=== PATIENT | male | born 1935 | race Caucasian/White ===

== ENCOUNTER → 2016-11-03 | Outpatient (CLI) | payer MEDICARE ==
[~2016-11-03] MED LIST: APIX1TAB3 PO; ATV/1 PO; CIPR-255 PO; CIPR1TAB11 PO; CIPR250T3 PO; CLX20 PO; DILT-119 PO; DRON2.5C PO; DTR5 PO; DXM/4 PO; FLM4 PO; FRS/40 PO; FSMD/70 PO; IBUP-1449 PO; LEUP11.23; LEUP11.23 INJ; LEVO1TAB35 PO; MULT-506 PO; OPTIRAY 320 IV PRN; OXYC-57 PO; OXYC1TAB3 PO; PHEN-775 PO; PRED-301 PO; PRLSR20 PO; PROC1TAB5 PO; PROP20TA67 PO; SIMV20TA2 PO; SULF800T23 PO
--- NOTE | 2016-11-03 15:49 | DIAGNOSTIC IMAGING REPORT ---
ABDOMEN AND PELVIS CT WITH IV AND ORAL CONTRAST CT DOSE: 774.17 mGy.cm HISTORY: Prostate cancer. TECHNIQUE: Multiaxial CT images of the abdomen and pelvis were performed following the use of intravenous and oral contrast. COMPARISON STUDY: Abdomen and pelvis CT 07/28/2016. Abdomen and pelvis CT 07/19/2014. FINDINGS: Emphysema and mild interstitial thickening at the lung bases. Stable 4 mm nodular density within the right middle lobe on image 3. Stable 4 mm nodule within the right lower lobe on image 7. Subacute/healing mild compression fractures at the inferior endplate of T11 and superior endplate of T12. This is similar to the prior study. No suspicious lytic or blastic osseous lesions. Stable indeterminate 7 mm enhancing lesion within the left hepatic lobe on image 120 dating back to 2013. The long-term stability favors a hemangioma. Hepatic steatosis. Focal nodular thickening at the gallbladder fundus favors adenomyomatosis. This remains unchanged. The adrenal glands and pancreas are unremarkable. No hydronephrosis. A 2.2 cm exophytic cyst within the lower pole of the right kidney. A few subcentimeter hypodense lesions within the left kidney with the largest measuring 6 mm. These are technically too small to characterize. No significant change in the retroperitoneal and right greater than left pelvic sidewall lymphadenopathy. Persistent bladder wall thickening. Colonic diverticulosis. No bowel wall thickening or obstruction. Normal appendix. IMPRESSION: 1. No change in the retroperitoneal and pelvic sidewall lymphadenopathy. 2. Stable bladder wall thickening. 3. Healing mild endplate compression deformity at T11 and T12. 4. Additional findings as described above. Electronically signed by: Zana Ceja M.D. 11/03/2016 3:47 PM Dictated Date/Time: 11/03/2016 3:38 PM
--- NOTE | 2016-11-03 16:53 | DIAGNOSTIC IMAGING REPORT ---
CT OF THE CHEST WITH IV CONTRAST CLINICAL HISTORY: Prostate cancer. COMPARISON STUDY: Chest CT July 28, 2016. TECHNIQUE: Following IV administration of 93 mL of Optiray-320, helical axial images of the chest were obtained. Images were viewed in the axial, sagittal and coronal planes. IV contrast was administered without complication. FINDINGS: The 1.1 cm sclerotic lesion within the right fourth rib is unchanged since prior exam of July 28, 2016. 2 sclerotic foci within the left fourth rib are unchanged and may reflect healing fractures. Mild emphysema is noted. A 6 mm right middle lobe nodule is unchanged as earlier exams. This is likely benign given stability. There is no consolidation to suggest pneumonia. No enlarged axillary, mediastinal or hilar lymph nodes are present. The abdomen and pelvis will be reported separately. Note is made of a mild compression deformity involving the superior endplate of T2 as well as a moderate compression deformity of the inferior endplate of T11 and a mild compression deformity of the superior endplate of T12 with minimal retropulsion. These fractures are likely subacute. IMPRESSION: 1. No change in the 1.1 cm sclerotic lesion within the right fourth rib which is suggestive of a metastasis. 2. No change in the sclerotic foci within the left fourth rib. Old fractures are favored although metastases could appear similar. 3. Interval development of T2, T11 and T12 compression fractures which are likely subacute and likely benign. Electronically signed by: Roldan Verduzco M.D. 11/03/2016 4:52 PM Dictated Date/Time: 11/03/2016 3:13 PM
== END | disposition home or self-care (01) ==
LOC: C.CTS 12:20
PROVIDERS: ATTEND Internal Medicine Hematology & Oncology
DX: C61 Malignant neoplasm of prostate (principal); M48.54XA Collapsed vertebra, not elsewhere classified, thoracic region, initial encounter for fracture; X58.XXXA Exposure to other specified factors, initial encounter

== ENCOUNTER → 2016-12-09 | Outpatient (CLI) | payer MEDICARE ==
[~2016-12-09] MED LIST changes: -OPTIRAY 320 IV PRN
== END | disposition home or self-care (01) ==
LOC: C.PATHSPEC 17:50
PROVIDERS: ATTEND Urology
DX: C67.9 Malignant neoplasm of bladder, unspecified (principal)

== ENCOUNTER → 2017-01-18 | Outpatient (CLI) | payer MEDICARE | END | disposition home or self-care (01) | LOC: C.LABSPEC 17:04 | PROVIDERS: ATTEND Urology | DX: R31.0 Gross hematuria (principal) ==

== ENCOUNTER → 2017-01-21 | Day surgery (SDC) | payer MEDICARE ==
[2017-01-20 15:42] VITALS: BMI 25.0
[~2017-01-21] VITALS: Ht 182.9 cm; Wt 83.6 kg
[~2017-01-21] MED LIST changes: +ATROPINE SULFATE 0.1 MG/ML 5ML SYR IV PRN; +CIPROFLOXACIN / D5W 400 MG IV SCH; +DEXAMETHASONE SOD INJ 4 MG/ML VIAL ONE; -DXM/4 PO; +EpHEDrine SULFATE INJ 50 MG/ML AMP IV PRN; +FENTANYL CITRATE INJ 50 MCG/1 ML 2 ML VIAL IV PRN; +FENTANYL CITRATE INJ 50 MCG/1 ML 2 ML VIAL ONE; +LACTATED RINGER'S 1000ML 1,000 ML IV SCH; -LEUP11.23; +LIDOCAINE HCL 2% 2 ML VIAL (20MG/ML) ONE; +ONDANSETRON INJ 2 MG/ML 2 ML VIAL IV PRN; +ONDANSETRON INJ 2 MG/ML 2 ML VIAL ONE; +OXYCODONE/ACETAMINOPHEN 5-325 TAB PO PRN; +PHENAZOPYRIDINE HCL 200 MG TAB PO PRN; -PROC1TAB5 PO; +PROPOFOL IV EMULSION 10 MG/ML 20 ML VIAL IV ONE
[2017-01-21 05:51] VITALS: BP 132/69; PULSE 59; TEMP 36.8; O2SAT 100; Ht 182.9 cm; Wt 83.6 kg
--- NOTE | 2017-01-21 08:40 | History & Physical Bridge Note ---
H&P Re-Evaluation Bridge Note: I have examined the patient, reviewed the History & Physical and in the interval since the performance of the History & Physical I have noted the following changes of clinical significance: Patient with intractable bleeding since office visit. Stopped Eliquis, for cysto, biopsy, fulguration, possible TURBT, RPG or stent. Consent revised, will move up seen transfer from [facility] for bleeding. DEN
--- NOTE | 2017-01-21 10:50 | Discharge Instructions ---
Discharge Instructions Date of Service Jan 21, 2017. Admission Reason for Admission: Hematuria Discharge Discharge Diagnosis / Problem: History of bladder cancer, radiation cystitis, recurrent hematuria s/p fulg Discharge Goals Goal(s): Decrease discomfort, Improve function, Improve disease control, Therapeutic intervention Activity Recommendations Activity Limitations: per Instructions/Follow-up section Lifting Limitations: no more than 25 pounds, gradually increase as tolerated Exercise/Sports Limitations: rest today, gradually increase as tolerated May Resume Sexual Activity: after two weeks Shower/Bathe: tomorrow Driving or Machine Use: resume 1 day after discharge . Instructions / Follow-Up Instructions / Follow-Up Cipro x 3 days post-op Discharge Diet Recommended Diet: Regular Diet Procedures Procedures Performed: Cystoscopy, clot evacuatio, bladder biopsy, fulguration of bladder and prostatic bleeders Pending Studies Studies pending at discharge: yes List of pending studies: Pathology check Medical Emergencies . Who to Call and When: Medical Emergencies: If at any time you feel your situation is an emergency, please call 911 immediately. . Non-Emergent Contact Non-Emergency issues call your: Urologist Call Non-Emergent contact if: you have a fever, temperature is above 101, your pain is not controlled, your pain is worsening, your pain is unusual for you, your pain is concerning you, wound has increased drainage . . "Provider Documentation" section prepared by Peewee Loco. . VTE Core Measure Inpt VTE Proph given/why not?: SCD's
--- NOTE | 2017-01-21 10:53 | [facility] Post Operative Brief Note ---
Immediate Operative Summary Operative Date Jan 21, 2017. Pre-Operative Diagnosis History Bladder Cancer; Refractory Hematuria and clot retention Post-Operative Diagnosis Same, prostatic bleeders Procedure(s) Performed Cystoscopy, clot evacuation, bladder biopsy, fulguration of bladder and prostatic bleeders Surgeon Dr. Peewee Loco Psychiatry Resident Surgeon(s) None Estimated Blood Loss 30 ml Findings No clear tumor, erythematous bladder edema biopsied, excellent hemostasis after completion of case, 200-300 cc of clot evacuated Specimens Permanent Specimens A: Bladder Anterior B:Bladder Neck Drains 18 fr 10 cc H2O Anesthesia GAET Complication(s) None Disposition Recovery Room / PACU
--- NOTE | 2017-01-21 11:35 | Anesthesiology Progress Note ---
Anesthesia Post Op Note Date & Time Jan 21, 2017 at 11:34 Vital Signs Pain Intensity: 0 Vital Signs Past 12 Hours Date Time Temp Pulse Resp B/P (MAP) Pulse Ox O2 Delivery O2 Flow Rate FiO2 01/21/17 11:30 61 16 135/63 100 Room Air 01/21/17 11:20 60 21 115/58 100 Mask 10 01/21/17 11:10 62 17 125/64 100 Mask 10 01/21/17 11:01 36.4 67 14 119/64 100 Mask 10 01/21/17 05:51 36.8 59 20 132/69 (90) 100 Room Air Notes Mental Status: alert / awake / arousable, participated in evaluation Pt Amnestic to Procedure: Yes Nausea / Vomiting: adequately controlled Pain: adequately controlled Airway Patency, RR, SpO2: stable & adequate BP & HR: stable & adequate Hydration State: stable & adequate Anesthetic Complications: no major complications apparent
[2017-01-21 11:45] VITALS: BP 138/73; PULSE 60; TEMP 36.1; O2SAT 100
[2017-01-21 12:15] VITALS: BP 156/76; PULSE 61; TEMP 36.1; O2SAT 100
[2017-01-21 12:45] VITALS: BP 151/79; PULSE 61; TEMP 36.6; O2SAT 100
[2017-01-21 13:15] VITALS: BP 155/74; PULSE 69; TEMP 36.5; O2SAT 96
[2017-01-21 14:15] VITALS: BP 140/72; PULSE 65; TEMP 36.4; O2SAT 96
--- NOTE | 2017-01-21 19:13 | OPERATIVE REPORT ---
DATE OF OPERATION: 01/21/2017 PREOPERATIVE DIAGNOSES: History of bladder cancer, radiation cystitis, and refractory hematuria with clot retention. POSTOPERATIVE DIAGNOSES: Same. PROCEDURE: Cystoscopy, clot evacuation, cold cup bladder biopsies, roller ball fulguration of bladder and prostatic bleeders. SURGEON: Dr. Peewee Loco. DROP HAMMER PILE DRIVER OPERATOR: None. ANESTHESIA: General anesthesia with endotracheal intubation. COMPLICATIONS: None. FINDINGS: Approximately 200 to 300 mL of clot within the bladder. Bleeding from the bladder neck and prostate fulgurated with excellent hemostasis intraoperatively. SPECIMENS SENT TO PATHOLOGY: Anterior cold cup bladder biopsies and bladder neck cold cup bladder biopsies. DRAINS LEFT IN PLACE: Include an 18-[place] Villela catheter with 10 mL of sterile water in the balloon. ESTIMATED BLOOD LOSS: 30 mL. BRIEF HISTORY: Mr. Belcher is an 81-year-old male well known to our service with a history of metastatic prostate cancer, on chemotherapy and recurrent bladder cancer. On his last office cystoscopy, abnormal mucosa in the anterior bladder was appreciated. This was felt to be consistent with recurrent cancer and the patient was planned for BCG. Unfortunately, he developed refractory and recurrent gross hematuria x48 hours now with persistent Villela catheter malfunction. He is being brought in for urgent fulguration of the areas of bleeding within the bladder. His Eliquis has been stopped due to bleeding difficulties. Please see H and P for further details. Intravenous ciprofloxacin is provided for antibiotic coverage. SCDs for DVT prophylaxis. PROCEDURE: The patient was properly identified and brought to the operative suite. After identification of appropriate consent on the chart, general anesthesia with endotracheal intubation was initiated and the patient was prepped and draped in standard fashion for this procedure. maritime officer-out procedure was followed. A 22-[place] Island[place] rigid resectoscope was passed into the bladder under direct visualization. Normal urethra was appreciated and a dqrl-ba-llztduermc obstructive prostate gland with friable tissue consistent with previous radiation effect was noted. This extended to the bladder neck. Ureteral orifices were visualized and noted to be in the normal anatomic location, although involved with some edema and erythema. The anterior bladder the previous abnormal mucosa was noted and felt to appear actually somewhat improved compared to his last cystoscopy. However, prior to all this, a large amount of clot present within the bladder had making it difficult to visualize, required irrigation with a Barry syringe to evacuate. After this was complete, findings as previously noted were appreciated. Cold cup bladder biopsies were taken of the most erythematous portions of the anterior bladder mucosa and sent for pathologic analysis focusing on the areas of bladder neck where the mucosa appeared most abnormal. The cystoscope was then removed. A 26-[place] resectoscope with a visual obturator was introduced into the bladder. Roller ball was used to fulgurate the areas of biopsies. Great care was taken to avoid any fulguration of the ureteral orifices. Fulguration took place around the bladder neck, anterior bladder wall and also within the prostate gland were friable tissue was noted to be bleeding with manipulation of the scope. After this was complete, the patient was noted to have excellent hemostasis with no areas of active bleeding or evidence of any persistent or recurrent tumor. No bladder perforation was noted. The resectoscope was removed and an 18-[place] Villela catheter was placed with return of clear irrigant. 10 mL of sterile water were placed in the balloon. Anesthesia was reversed. The patient was transferred to recovery room in stable condition. FOLLOWUP CARE: The patient will be discharged home after a trial of void in the hospital today. Ciprofloxacin x3 days postoperatively. Postoperative [id number] analgesia is recommended. The patient is instructed to contact our service should he note any fevers, chills, nausea, vomiting or other significant difficulties in the postoperative period. Outpatient followup appointment is confirmed. I attest to the content of the Intraoperative Record and any orders documented therein. Any exceptions are noted below. CAESAR
== END | disposition home or self-care (01) ==
LOC: C.ACU 04:59
PROVIDERS: ATTEND Urology
DX: C67.5 Malignant neoplasm of bladder neck (principal); C61 Malignant neoplasm of prostate; N32.89 Other specified disorders of bladder; N30.40 Irradiation cystitis without hematuria; K21.9 Gastro-esophageal reflux disease without esophagitis; E78.00 Pure hypercholesterolemia, unspecified; Z87.891 Personal history of nicotine dependence; Z80.6 Family history of leukemia

== ENCOUNTER → 2017-02-03 | Outpatient (CLI) | payer MEDICARE ==
[~2017-02-03] MED LIST changes: -ATROPINE SULFATE 0.1 MG/ML 5ML SYR IV PRN; -ATV/1 PO; -CIPR250T3 PO; -CIPROFLOXACIN / D5W 400 MG IV SCH; -DEXAMETHASONE SOD INJ 4 MG/ML VIAL ONE; -DTR5 PO; -EpHEDrine SULFATE INJ 50 MG/ML AMP IV PRN; -FENTANYL CITRATE INJ 50 MCG/1 ML 2 ML VIAL IV PRN; -FENTANYL CITRATE INJ 50 MCG/1 ML 2 ML VIAL ONE; -FRS/40 PO; -LACTATED RINGER'S 1000ML 1,000 ML IV SCH; -LEVO1TAB35 PO; -LIDOCAINE HCL 2% 2 ML VIAL (20MG/ML) ONE; -ONDANSETRON INJ 2 MG/ML 2 ML VIAL IV PRN; -ONDANSETRON INJ 2 MG/ML 2 ML VIAL ONE; +OPTIRAY 320 IV PRN; -OXYC1TAB3 PO; -OXYCODONE/ACETAMINOPHEN 5-325 TAB PO PRN; -PHENAZOPYRIDINE HCL 200 MG TAB PO PRN; -PROP20TA67 PO; -PROPOFOL IV EMULSION 10 MG/ML 20 ML VIAL IV ONE; -SULF800T23 PO
--- NOTE | 2017-02-03 15:38 | DIAGNOSTIC IMAGING REPORT ---
CT SCAN OF THE CHEST WITH IV CONTRAST CLINICAL HISTORY: Prostate cancer. COMPARISON STUDY: Chest CT scans dated 11/03/2016 and 07/19/2014. TECHNIQUE: Following the IV administration of 119 cc of Optiray 320, CT scan of the thorax was performed from the thoracic inlet to the upper abdomen. Images are reviewed in the axial, sagittal, and coronal planes. IV contrast was administered without complication. FINDINGS: Thyroid: Imaged portions of the thyroid gland are normal in size and attenuation. Thoracic aorta: There is atherosclerotic calcification of the thoracic aorta, which is normal in caliber and demonstrates standard 3-vessel arch anatomy. No dissection is seen. Pulmonary vasculature: The pulmonary trunk is normal in caliber. There are no filling defects identified in the central pulmonary vessels to indicate pulmonary embolus. Note that this examination was not protocoled for evaluation of the pulmonary arteries. Heart: The heart is mildly enlarged and without pericardial effusion. There are coronary artery calcifications. Lungs and pleural spaces: Emphysematous change is again seen. There is biapical scarring as well as foci of subpleural reticulation. Scattered calcified granulomas are identified. There is no airspace consolidation or pleural effusion. There is a 5 mm pulmonary nodule in the right middle lobe seen on image #191. This is not significantly changed dating back to 2013 and is of doubtful significance. No new pulmonary lesions are identified. Mediastinum: There is no mediastinal lymphadenopathy. Matilda: Clear. Axillae: There is no axillary lymphadenopathy. Upper abdomen: There is evidence of hepatic steatosis. Glandular atrophy is noted in the partially imaged pancreas. There is a small hiatal hernia. Right-sided hydronephrosis is partially imaged. There is heterogeneous perfusion of the right kidney as well as right-sided retroperitoneal nodules which measure up to 1.3 cm. Skeletal structures: The skeletal structures are osteopenic. There is unchanged appearance of an 11 mm sclerotic lesion in the right anterior fourth rib seen on image #99. There are also small sclerotic foci identified in the left posterior fourth rib seen on image #47 and in the left lateral fourth rib on image #90. No additional sclerotic lesions are seen. Mild degenerative change and hyperkyphosis are noted in the thoracic spine. There is a healed left anterior eighth rib fracture. There are mild compression deformity is again seen involving T11 and T12. IMPRESSION: 1. There is no evidence of progressive intrathoracic disease as compared to 11/03/2016. 2. Unchanged appearance of a sclerotic lesion in the right anterior fourth rib. This remains concerning for metastatic disease. No new sclerotic lesions are identified. 3. The 2 previously questioned indeterminant sclerotic foci in the left fourth rib are unchanged. 4. Right-sided hydronephrosis is partially visualized and there is heterogeneously decreased perfusion of the right kidney. Right-sided retroperitoneal nodules are new from previous and likely represent metastatic disease. See report of abdominal CT performed concurrently for detailed intra-abdominal findings. 5. Cardiomegaly and emphysema. 6. No airspace consolidation or pleural effusion is identified. 7. Hepatic steatosis. 8. Additional changes as above. Electronically signed by: Tushar Green M.D. 02/03/2017 3:36 PM Dictated Date/Time: 02/03/2017 3:25 PM
--- NOTE | 2017-02-03 15:41 | DIAGNOSTIC IMAGING REPORT ---
ABD/PELVIS IV AND ORAL CONT HISTORY: 81-year-old male presents for follow-up exam with history of prostate cancer. COMPARISON: CT abdomen and pelvis 11/03/2016. TECHNIQUE: Multiple axial CT images of the abdomen and pelvis were obtained following the intravenous administration of 119 mL Optiray 320. Oral contrast was also administered. FINDINGS: There is minimal subsegmental atelectasis of the lung bases along with some subpleural cystic changes. There is no gross pneumoperitoneum. Cardiomegaly with coronary arterial calcifications again seen. The liver, spleen, gallbladder and adrenal glands are within normal limits. There is at least moderate diffuse pancreatic atrophy. There has been interval development of moderate right-sided hydroureteronephrosis is present along with delayed nephrogram on the right. This appears to be secondary to progression of retroperitoneal, pelvic sidewall and pericaval adenopathy on the right. For example, conglomerate of pericaval adenopathy at the level of the kidneys measures up to 3.6 x 1.9 cm on image 34 of the axial series, previously 2.2 x 1.1 cm. Lymphadenopathy along the right pelvic sidewall measures up to 5.1 x 3.4 cm on image 63, previously 3.7 x 2.3 cm. Additionally, there are new soft tissue nodular densities within the right posterior pararenal space measuring up to 1.0 x 0.7 cm as seen on image 27 suggesting metastatic nodes. Progressive right iliac lymph nodes are also noted. Subcentimeter low attenuating densities of the left kidney suggests cysts. Again noted is circumferential wall thickening of the urinary bladder. There is moderate mixed plaquing of the abdominal aorta. There is no bowel obstruction. There is trace free fluid within the dependent pelvis which is likely reactive. Soft tissues are within normal limits. Unchanged endplate compression deformities are again seen at the T11-T12 level. No new suspicious lytic or blastic foci. IMPRESSION: 1. Interval development of moderate right-sided hydroureteronephrosis with delayed right-sided nephrogram secondary to progressive retroperitoneal and pelvic sidewall adenopathy. 2. Aside from the progressive adenopathy as described above, no additional new sites of disease are identified. 3. Wall thickening of the urinary bladder is unchanged. 4. Healing endplate compression deformity at T11-T12. Electronically signed by: Gray Brown 02/03/2017 3:39 PM Dictated Date/Time: 02/03/2017 3:24 PM
== END | disposition home or self-care (01) ==
LOC: C.CTS 12:43
PROVIDERS: ATTEND Nurse Practitioner Family
DX: C61 Malignant neoplasm of prostate (principal); N13.30 Unspecified hydronephrosis; R59.0 Localized enlarged lymph nodes; S22.080A Wedge compression fracture of T11-T12 vertebra, initial encounter for closed fracture; X58.XXXA Exposure to other specified factors, initial encounter; M89.9 Disorder of bone, unspecified; I51.7 Cardiomegaly; J43.9 Emphysema, unspecified; K76.0 Fatty (change of) liver, not elsewhere classified

== ENCOUNTER → 2017-02-08 | Outpatient (CLI) | payer MEDICARE ==
[~2017-02-08] MED LIST changes: -OPTIRAY 320 IV PRN
--- NOTE | 2017-02-08 15:13 | DIAGNOSTIC IMAGING REPORT ---
HISTORY: 81-year-old male with history of prostate cancer. Concern for possible metastatic disease. RADIOTRACER: 26.4 mCi Tc-99m MDP STUDY/IMAGES: Planar anterior and posterior whole body imaging was performed 3 hours following the intravenous administration of radiotracer. COMPARISON: Chest CT 02/03/2017. FINDINGS: There is a focus of intense radiotracer uptake within the anterolateral aspect of the right fourth rib which correlates with a sclerotic rib lesion seen on comparison chest CT dated 02/03/2017. The previously described sclerotic lesions in the posterior aspect of the left fourth rib do not demonstrate significant radiotracer uptake. There is moderately increased radiotracer uptake within the anterior aspect of the left eighth rib. On comparison CT, this appears to represent a linear healing rib fracture. There is an area of moderately increased radiotracer uptake involving the posterior left forearm which may be at the injection site. Mild linear radiotracer uptake seen about the tibia bilaterally which may reflect underlying venous stasis or sequela of hypertrophic osteoarthropathy. Degenerative related areas of uptake are seen throughout the spine and shoulders. No additional pathologic-appearing areas of radiotracer uptake are seen within the axial or appendicular skeletal system. IMPRESSION: 1. Focus of intense radiotracer uptake within the anterolateral right fourth rib correlates with a sclerotic lesion seen on comparison chest CT 02/03/2017 compatible with metastasis. 2. Focus of moderate radiotracer uptake within the anterior aspect of the left eighth rib appears to correlate with a subacute rib fracture on comparison chest CT. 3. 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 Electronically signed by: Gray Brown 02/08/2017 3:12 PM Dictated Date/Time: 02/08/2017 2:59 PM
== END | disposition home or self-care (01) ==
LOC: C.NUCL 10:42
PROVIDERS: ATTEND Nurse Practitioner Family
DX: C61 Malignant neoplasm of prostate (principal)

== ENCOUNTER → 2017-02-15 | Outpatient (CLI) | payer MEDICARE ==
[~2017-02-15] MED LIST changes: -APIX1TAB3 PO
== END | disposition home or self-care (01) ==
LOC: C.LABSPEC 17:13
PROVIDERS: ATTEND Urology
DX: R31.29 Other microscopic hematuria (principal)

== ENCOUNTER 2017-02-18 09:12 | Day surgery (SDC) | payer MEDICARE ==
[2017-02-12 12:18] VITALS: BMI 25.0
[~2017-02-18] VITALS: Ht 182.9 cm; Wt 83.6 kg
[~2017-02-18 09:12] MED LIST changes: +ATROPINE SULFATE 0.1 MG/ML 5ML SYR IV PRN; -CIPR-255 PO; -CIPR1TAB11 PO; +CIPROFLOXACIN / D5W 400 MG IV SCH; -DRON2.5C PO; +EpHEDrine SULFATE INJ 50 MG/ML AMP IV PRN; +FENTANYL CITRATE INJ 50 MCG/1 ML 2 ML VIAL IV PRN; +LACTATED RINGER'S 1000ML 1,000 ML IV SCH; +ONDANSETRON INJ 2 MG/ML 2 ML VIAL IV PRN; -OXYC-57 PO; -PHEN-775 PO
[2017-02-18 09:40] VITALS: BP 131/69; PULSE 55; TEMP 36.6; O2SAT 98; Ht 182.9 cm; Wt 83.6 kg
--- NOTE | 2017-02-18 09:48 | History & Physical Bridge Note ---
H&P Re-Evaluation Bridge Note: I have examined the patient, reviewed the History & Physical and in the interval since the performance of the History & Physical I have noted the following changes of clinical significance: No changes noted
[2017-02-18] MEDS ORDERED: PROPOFOL IV EMULSION 10 MG/ML 20 ML VIAL IV ONE ×2 (10:15→11:40)
[2017-02-18] MEDS ORDERED: LIDOCAINE HCL 2% 2 ML VIAL (20MG/ML) ONE (10:15)
[2017-02-18] MEDS ORDERED: ONDANSETRON INJ 2 MG/ML 2 ML VIAL ONE (10:15)
[2017-02-18] MEDS ORDERED: MIDAZOLAM HCL 1 MG/ML 2ML VIAL ONE (10:15)
[2017-02-18] MEDS ORDERED: FENTANYL CITRATE INJ 50 MCG/1 ML 2 ML VIAL ONE (10:15)
[2017-02-18] MEDS ORDERED: CONRAY 60% 50 ML VIAL ONE (11:22)
[2017-02-18] MEDS ORDERED: CONRAY 30% 150ML BOTTLE INSTIL ONE (11:41)
[2017-02-18] MEDS ORDERED: BELLADONNA/OPIUM SUPP 60 MG SUPP PR ONE (11:54)
[2017-02-18] MEDS ORDERED: PHEN-775 PO (12:14)
[2017-02-18] MEDS ORDERED: OXYC-57 PO (12:14)
[2017-02-18] MEDS ORDERED: CIPR-255 PO (12:14)
--- NOTE | 2017-02-18 12:18 | Discharge Instructions ---
Discharge Instructions Date of Service Feb 18, 2017. Admission Reason for Admission: Hydronephrosis Discharge Discharge Diagnosis / Problem: Bilateral hydro, R>L, bladder neck disease Discharge Goals Goal(s): Decrease discomfort, Improve function, Improve disease control, Therapeutic intervention Activity Recommendations Activity Limitations: as noted below Lifting Limitations: no more than 25 pounds, gradually increase as tolerated ( over 3-5 days) Exercise/Sports Limitations: rest today, gradually increase as tolerated (over 3-5 days) May Resume Sexual Activity: when tolerated Shower/Bathe: tomorrow (may shower, no bath with barboza in place) . Instructions / Follow-Up Instructions / Follow-Up Catheter removal WednesdayFeb 22 at 10:00 AM in our [place] Office Visit with Dr. Loco Mar 15 2017 at 10:40 AM In [place] Office Discharge Diet Recommended Diet: Regular Diet (good fluid intake) Procedures Procedures Performed: Cystoscopy, bilateral ureteral stent placement, Rollerball fulguration of bladder, Bilateral retrograde pyelography Pending Studies Studies pending at discharge: no Medical Emergencies . Who to Call and When: Medical Emergencies: If at any time you feel your situation is an emergency, please call 911 immediately. . Non-Emergent Contact Non-Emergency issues call your: Urologist Call Non-Emergent contact if: you have a fever, temperature is above 101, your pain is not controlled, your pain is worsening, your pain is unusual for you, your pain is concerning you, you have any medication questions . . "Provider Documentation" section prepared by Peewee Loco. . VTE Core Measure Inpt VTE Proph given/why not?: SCD's [place] Drug Monitoring Program Search Results: patient reviewed within database, no issues identified
--- NOTE | 2017-02-18 12:24 | [facility] Operative Report ---
Operative Report Operative Date Feb 18, 2017. Pre-Operative Diagnosis Right Hydronephrosis, Bladder Cancer, Metastatic Prostate Cancer Post-Operative Diagnosis Bilateral hydronephrosis with trigonal involvement, suspect prostate cancer progression Procedure(s) Performed Cystoscopy, bilateral retrograde pyelography and ureteral stent placement, Rollerball fulguration of trigone Surgeon Dr. Peewee Loco Manager Studio Surgeon(s) None Estimated Blood Loss 20 cc Findings Diffuse edema of trigone and ureteral orifices c/w disease progression from ~1 month ago, bilateral hydro on RPG, R>L, good stent position on fluoro and direct visualization Specimens none per surgeon Drains Bilateral 6 fr multilength ureteral stents, 20 fr barboza 10 cc H2O Anesthesia MAC Complication(s) None Disposition Recovery Room / PACU Indications R hydronephrosis, metastatic prostate cancer. Description of Procedure Patient was properly identified and brought to the operative suite after identification of appropriate consent on the chart. Monitored anesthesia care with sedation was initiated and patient was prepped and draped in the standard fashion for this procedure. Full timeout was followed. Intravenous ciprofloxacin was provided for antibiotic coverage. 22 Frisian cystoscope was introduced into the bladder under direct visualization. While the majority of the bladder was stable from his intraoperative findings a month ago his trigone was noted to be completely encompassed with edematous and friable tissue extending down to the level of the prostate. Neither ureteral orifice was visualized on placement of the scope. After much careful prodding with an angled sensor wire the right ureteral orifice was able to be identified buried within the edema. This was cannulated and retrograde pyelography was performed. This demonstrated moderate fullness of the distal ureter, compression of the mid ureter likely due to the finding of enlarged retroperitoneal lymph nodes previously noted on CT scan and proximal hydronephrosis with a tortuous ureter. Thankfully, sensor wire was able to be advanced up to the right kidney followed by a multilength ureteral stent with redundant coil present within the right renal pelvis and double coil present within the bladder associated with a hydronephrotic drip. Attention was then turned to the left ureteral orifice which was felt to be abnormal on direct visualization. With some effort this was able to be blindly identified with a sensor wire and retrograde pyelography was performed. Mild to moderate fullness to the ureter was felt to be present and seen the involvement of the ureter at the level of the bladder decision was made to proceed with stenting on the side. A multilength ureteral stent was advanced with redundant coil present within the left renal pelvis as well as directly visualized within the bladder. Unfortunately, due to the manipulation significant oozing was present diffusely at the trigone. Again, changes were felt to be out of proportion with his previous operative intervention. Sorbitol irrigation was placed and rollerball was used to fulgurate the trigone and tissue around the ureteral orifice for hemostatic purposes. Fulguration of the prostate and bladder neck directly was avoided as possible. Bladder was drained and cystoscope was removed. 20 Frisian Barboza catheter was placed with return of clear pink irrigant. 10 mL of sterile water were placed within the balloon. Belladonna and opium suppository was provided for postoperative analgesia. Anesthesia was reversed and patient was transferred to the recovery room in stable condition. I attest to the content of the Intraoperative Record and any orders documented therein. Any exceptions are noted below.
[2017-02-18] MEDS ORDERED: OXYCODONE/ACETAMINOPHEN 5-325 TAB PO PRN (12:30)
[2017-02-18] MEDS ORDERED: PHENAZOPYRIDINE HCL 200 MG TAB PO PRN (12:30)
[2017-02-18 12:35] VITALS: BP 137/70; PULSE 54; TEMP 35.5; O2SAT 99
--- NOTE | 2017-02-18 12:41 | Anesthesiology Progress Note ---
Anesthesia Post Op Note Date & Time Feb 18, 2017 at 12:40 Vital Signs Pain Intensity: 0 Vital Signs Past 12 Hours Date Time Temp Pulse Resp B/P (MAP) Pulse Ox O2 Delivery O2 Flow Rate FiO2 02/18/17 12:30 36.2 54 14 125/74 99 Room Air 02/18/17 12:20 55 15 117/67 98 Room Air 02/18/17 12:10 36.5 57 12 127/69 100 Oxymask 10 02/18/17 09:40 36.6 55 20 131/69 (89) 98 Room Air Notes Mental Status: alert / awake / arousable, participated in evaluation Pt Amnestic to Procedure: Yes Nausea / Vomiting: adequately controlled Pain: adequately controlled Airway Patency, RR, SpO2: stable & adequate BP & HR: stable & adequate Hydration State: stable & adequate Anesthetic Complications: no major complications apparent
[2017-02-18 13:05] VITALS: BP 125/73; PULSE 59; O2SAT 99
--- NOTE | 2017-02-18 13:19 | DIAGNOSTIC IMAGING REPORT ---
RETROGRADE INCLUDES KUB CLINICAL HISTORY: 81 years-old Male presenting with RT CYSTO/STENT, history of prostate cancer. TECHNIQUE: 4 fluoroscopic spot images of the abdomen were obtained as part of a urologic procedure. COMPARISON: CT from 02/03/2017. FINDINGS/IMPRESSION: A guidewire was introduced through the double-J right ureteral stent. Dilated right renal collecting system and opacified with contrast. Guidewire then was passed through the left ureter into the left upper pole calyces, also opacified with contrast but nondilated. A double-J stent was then placed into the left renal collecting system. Please see separately dictated surgical report for further details. Fluoroscopy dosage (mGy): Not available. Fluoroscopy time: 2 minutes 9 seconds. Number of fluoroscopic spot images: 4. Electronically signed by: Miguel Toth M.D. 02/18/2017 1:17 PM Dictated Date/Time: 02/18/2017 1:14 PM
[2017-02-18 13:35] VITALS: BP 135/74; PULSE 59; TEMP 36.6; O2SAT 99
[2017-05-04] MEDS ORDERED: DRON2.5C PO (11:53)
== END 2017-02-18 13:50 | disposition home or self-care (01) ==
LOC: C.ACU 09:12
PROVIDERS: ATTEND Urology
DX: N13.30 Unspecified hydronephrosis (principal); C61 Malignant neoplasm of prostate; C67.9 Malignant neoplasm of bladder, unspecified; N30.40 Irradiation cystitis without hematuria; E78.00 Pure hypercholesterolemia, unspecified; K21.9 Gastro-esophageal reflux disease without esophagitis; Z87.891 Personal history of nicotine dependence; Z79.899 Other long term (current) drug therapy

== ENCOUNTER 2017-04-01 02:03 | Emergency (ER) | payer MEDICARE ==
[~2017-04-01 02:03] MED LIST changes: -ATROPINE SULFATE 0.1 MG/ML 5ML SYR IV PRN; +CIPR-255 PO; -CIPROFLOXACIN / D5W 400 MG IV SCH; -EpHEDrine SULFATE INJ 50 MG/ML AMP IV PRN; -FENTANYL CITRATE INJ 50 MCG/1 ML 2 ML VIAL IV PRN; -LACTATED RINGER'S 1000ML 1,000 ML IV SCH; -ONDANSETRON INJ 2 MG/ML 2 ML VIAL IV PRN; +OXYC-57 PO
[2017-04-01] MEDS ORDERED: CIPR1TAB11 PO (04:28)
[2017-04-01] MEDS ORDERED: CIPROFLOXACIN 500 MG TAB PO STA (04:29)
--- NOTE | 2017-04-01 04:29 | EMERGENCY ROOM VISIT NOTE ---
History Report prepared by La: Vishal Neville Under the Supervision of: Dr. Teto Hu M.D. First contact with patient: 04:27 Stated Complaint: BLADDER PRESSURE AND BLEEDING History of Present Illness The patient is a 81 year old male who presents to the Emergency Room with complaints of worsening hematuria beginning a few weeks ago. The patient states that he has passed several clots today in his urine as well. He has a history of prostate cancer with metastases to the bladder and local lymph nodes. He has been receiving radiation and chemotherapy. The patient was recently told that the lymph nodes appear to be blocking his urine output, so he had urinary stents placed three weeks ago. He is not on any blood thinners. He has a history of similar symptoms. The patient states that he frequently has blood in his urine, but states that his symptoms have worsened significantly these past few weeks. He notes that he had a recent cystoscopy. He denies any recent syncopal episodes, or abnormal leg swelling. Nothing has improved his symptoms. Source of History: patient Onset: a few weeks ago Quality: other (hematuria) Timing: worsening Modifying Factors (Relieving): other (none) Note: The patient denies any recent syncopal episodes or abnormal leg swelling. Review of Systems See HPI for pertinent positives & negatives. A total of 10 systems reviewed and were otherwise negative. Past Medical & Surgical Medical Problems: (1) Bladder cancer (2) Prostate cancer Family History No pertinent family history stated. Social History Smoking Status: Former Smoker Marital Status: Occupation Status: employed Current/Historical Medications Scheduled Alendronate/Cholecalciferol (Fosamax+D 70MG/2800 Iu), 1 TABLET PO [id number] Ciprofloxacin Hcl (Cipro), 500 MG PO BID Ciprofloxacin Tab (Cipro), 1 TAB PO BID Citalopram (Citalopram Hydrobromide), 20 MG PO QAM Diltiazem Hcl Ext Rel (Tiazac), 360 MG PO QAM Leuprolide Acetate (Lupron Depot), 1 DOSE INJ [id number] Multivitamin (Multivitamin), 1 TAB PO QAM Prednisone (Prednisone), 5 MG PO QAM Simvastatin (Zocor), 20 MG PO Q2D Tamsulosin HCl (Tamsulosin HCl), 1 CAP PO Q2D Scheduled PRN Ibuprofen Tab (Motrin), 1 TAB PO Q6H PRN for Pain Omeprazole (Prilosec), 20 MG PO DAILY PRN for Indigestion Oxycodone/Acetaminophen 5MG/325MG (Percocet 5MG/325MG), 1 TABLET PO Q4H PRN for Pain Allergies Coded Allergies: No Known Allergies (Unverified , 02/18/17) Physical Exam Physical Exam GENERAL: Patient is uncomfortable appearing and in moderate distress. Frail in appearance. HEENT: No acute trauma, normocephalic atraumatic, mucous membranes moist, no nasal congestion, no scleral icterus. NECK: No stridor, no adenopathy, no meningismus, trachea is midline. LUNGS: No dyspnea. Clear to auscultation and equal bilaterally. No wheeze, no rhonchi. HEART: Regular rate and rhythm. No murmurs, rubs, gallops appreciated. ABDOMEN: Soft, bowel sounds positive, no peritonitis. Large, full bladder which is tender to palpation. BACK: No midline tenderness, no CVA tenderness EXTREMITIES: Normal motion all extremities, no cyanosis. Chronic lymphedema of the right leg. NEUROLOGIC: Alert and oriented, no acute motor or sensory deficits, no focal weakness, cranial nerves grossly intact. SKIN: No rash, no jaundice, no diaphoresis. Medical Decision & Procedures Medications Administered Medications (Trade) Dose Ordered Sig/Ismael Route Start Time Stop Time Status Last Admin Dose Admin Ciprofloxacin (Cipro Tab) 250 mg NOW STAT PO 04/01/17 04:29 04/01/17 04:30 DC 04/01/17 04:29 250 MG ED Course 0226: The patient was evaluated in room A12B. A complete history and physical exam was performed. 0315: I reassessed the patient. Nursing staff is currently placing a Villela catheter. 0400: Over 900 cc of urine was expressed from the patients Villela catheter. 0410: Reevaluated the patient. He feels much better. He notes that he was told that he should be placed on Cipro. Discussed results and discharge instructions : the patient verbalized understanding and agreement. The patient is ready for discharge. 0429: Ordered Cipro Tab 250 mg PO. Medical Decision 81 yr old male with metastatic prostate/bladder CA being treated over the last decade or so recently requiring bilateral ureteral stents secondary to enlarged lymph nodes (also causing persistent right leg edema which is unchanged). Arrives due to inability to urinate besides small blood clots. Reviewed with Urology prior to CBI. Initially ~ 1 L UOP and after prolonged CBI he had clearing of urine and feeling well. He is in no distress and feels well. He has had urinary bleeding before and notes no new other bleeding other than periodic bloody noses. Recent labs without thrombocytopenia, though we do not have labs from [facility] yesterday. As no further bleeding currently will hold off on rechecking these as following with Onc shortly. Previously has had Villela and he and family note that he always is placed on Cipro thus I will do this. I did review risks of abx, especially given recent bout of thrush with his Chemo. Consults Time Called: [phone] Consulting Physician: Dr. Loco -Urology Returned Call: [phone] I discussed the patients case with Dr. Loco. He states that the patient will need a Villela catheter placed. If the patient has grossly bloody urine with placement of the Villela, he will need continuous irrigation until the bleeding clears. Impression Primary Impression: Acute urinary retention Additional Impression: Hematuria Scribe Attestation The scribe's documentation has been prepared under my direction and personally reviewed by me in its entirety. I confirm that the note above accurately reflects all work, treatment, procedures, and medical decision making performed by me. Departure Information Dispostion Home / Self-Care Prescriptions Ciprofloxacin Tab (Cipro) 250 Mg Tab 1 TAB PO BID for 5 Days, #10 TAB Prov: Teto Hu M.D. 04/01/17 Referrals Crow Metcalf M.D. (PCP) Additional Instructions Please follow up with Urologist in next few days. Return if no urine output, increased pain, or other concerns. Problem Qualifiers
[2017-05-04] MEDS ORDERED: DRON2.5C PO (11:53)
== END 2017-04-01 04:48 | disposition home or self-care (01) ==
LOC: C.EDA 02:03
DX: R33.9 Retention of urine, unspecified (principal); R31.9 Hematuria, unspecified; Z85.46 Personal history of malignant neoplasm of prostate; Z85.51 Personal history of malignant neoplasm of bladder; Z92.3 Personal history of irradiation; Z92.21 Personal history of antineoplastic chemotherapy; Z87.891 Personal history of nicotine dependence; Z79.899 Other long term (current) drug therapy

== ENCOUNTER → 2017-04-16 | Outpatient (CLI) | payer MEDICARE ==
[~2017-04-16] MED LIST changes: +DRON2.5C PO
--- NOTE | 2017-04-16 11:00 | DIAGNOSTIC IMAGING REPORT ---
CT OF THE ABDOMEN AND PELVIS WITHOUT CONTRAST, STONE PROTOCOL CLINICAL HISTORY: Prostate cancer. Stones. Hematuria. COMPARISON STUDY: CT of the abdomen and pelvis February 03, 2017 and retrograde exam February 18, 2017. TECHNIQUE: Helical axial images of the abdomen and pelvis were obtained without IV or oral contrast according to renal stone protocol. A dose lowering technique was utilized adhering to the principles of ALARA. FINDINGS: Bilateral ureteral stents are appropriately positioned. Right hydronephrosis shown on exam of February 13, 2017 has resolved. No renal, ureteral or bladder calculi are present. Evaluation of the abdomen and pelvis is suboptimal on this unenhanced exam. Bladder wall thickening is unchanged. A 9 mm left hepatic lobe lesion is unchanged from prior studies and therefore benign. Unenhanced images of the spleen, adrenal glands and pancreas are unremarkable. Multiple nodules lateral to the right kidney within the posterior pararenal space are again noted. These have slightly increased in size since exam of February 03, 2017. These measure up to 1.2 cm. Extensive retroperitoneal lymphadenopathy within the abdomen and pelvis has not significantly changed since exam February 03, 2017. Index aortocaval lymph node shown on image 60 of 161 measures 3.1 x 1.9 cm. This is similar to prior exam. Index right pelvic sidewall node shown image 170 measures 5.1 x 3.1 cm. This is similar to prior exam. Index left internal iliac node shown image 118 measures 2 cm. This is similar to prior exam. There is sigmoid diverticulosis without evidence for acute diverticulitis. There is no evidence for a obstruction. No pneumatosis, free air or portal venous gas is present. No suspicious osseous lesions are identified within visualized portions of the skeleton. Compression deformities at T11 and T12 are unchanged. IMPRESSION: 1. Bilateral ureteral stents in place. Interval resolution of right hydronephrosis since CT of February 03, 2017. No urinary calculi. 2. No significant change in abdominal and pelvic lymphadenopathy consistent with metastatic disease since exam of February 03, 2017. 3. Slight increase in several small nodules lateral to the right kidney consistent with slight disease progression. Electronically signed by: Roldan Verduzco M.D. 04/16/2017 10:59 AM Dictated Date/Time: 04/16/2017 10:42 AM
== END | disposition home or self-care (01) ==
LOC: C.CTS 10:00
PROVIDERS: ATTEND Urology
DX: R31.0 Gross hematuria (principal); N28.9 Disorder of kidney and ureter, unspecified

== ENCOUNTER → 2017-05-17 | Outpatient (CLI) | payer MEDICARE ==
[~2017-05-17] MED LIST changes: +ATV/1 PO; -CIPR-255 PO; +DTR5 PO; +FRS/40 PO; +LEVO1TAB35 PO; -MULT-506 PO; +OXYC1TAB3 PO; +PROP20TA67 PO; +SULF800T23 PO
== END | disposition home or self-care (01) ==
LOC: C.LAB 13:03
PROVIDERS: ATTEND Urology
DX: C67.9 Malignant neoplasm of bladder, unspecified (principal); N13.30 Unspecified hydronephrosis

== ENCOUNTER → 2017-07-15 | Outpatient (CLI) | payer MEDICARE ==
[~2017-07-15] MED LIST changes: -ATV/1 PO; -DILT-119 PO; -FRS/40 PO; -IBUP-1449 PO; -LEUP11.23 INJ; -LEVO1TAB35 PO; -OXYC-57 PO; -SULF800T23 PO
--- NOTE | 2017-07-15 16:45 | DIAGNOSTIC IMAGING REPORT ---
(CHEST) THORAX WITHOUT, ABD/PELVIS ORAL CONT ONLY CT DOSE: 648.83 mGy.cm CLINICAL HISTORY: 81 years-old Male with PROSTATE CA. Follow-up study in a patient with prostate cancer . History of sclerotic right and left fourth rib lesions TECHNIQUE: Multiaxial CT images of the chest, abdomen and pelvis were performed without contrast. A dose lowering technique was utilized adhering to the principles of ALARA. COMPARISON: CT chest, abdomen and pelvis 06/01/2017 and 02/03/2017, CT abdomen and pelvis 05/30/2017. FINDINGS: CT CHEST: Mildly heterogeneous thyroid without dominant nodule. Nonenlarged mediastinal lymph nodes are seen without pathologic adenopathy by CT size criteria. The heart is mildly enlarged. Decreased attenuation of the cardiac blood pool suggests anemia. Coronary arterial disease. Calcifications of the aortic annulus are noted along with moderate atherosclerosis of the aorta. No aortic aneurysm identified. Trace bilateral pleural effusions, decreased in size from comparison. Mild upper lobe predominant paraseptal and centrilobular emphysema. No pneumothorax. Subpleural reticular opacities are noted within a multilobar multifocal distribution bilaterally which have progressed from 02/03/2017. There is improved aeration of the lungs from comparison study 06/01/2017. No lobar airspace consolidations. Calcific granuloma the left lower lobe. No suspicious pulmonary nodules identified. Mild subpleural cystic changes of the lung bases appear unchanged with bibasilar reticular opacities suggesting areas of fibrosis. No definite suspicious pulmonary nodules or masses identified to suggest metastatic disease. 5 x 4 mm solid pulmonary nodule of the lateral segment right middle lobe is seen on image 200 series 6, previously measuring up to 5 mm and study dated 02/03/2017. Central airways are patent. There is oral contrast within the majority of the thoracic esophagus suggesting reflux. Soft tissues of the chest are unremarkable. Mild bilateral gynecomastia. The bones appear mildly demineralized. Sclerotic foci involving the lateral aspects of the fourth ribs bilaterally are again seen which appear unchanged from comparison. No new lytic or sclerotic bony lesions identified. Nonspecific linear sclerosis again noted involving the anterior aspect of the left eighth rib which is also unchanged. Multilevel degenerative changes of the thoracic spine. Large Schmorl's nodes are again seen involving the inferior endplate of T11 and superior endplate T12, unchanged. CT ABDOMEN/PELVIS: 8 mm low attenuating lesion of the left hepatic lobe is noted on image 101 series 7 which is unchanged. No new hepatic mass lesions identified. No intrahepatic biliary ductal dilation. Gallbladder is unremarkable. Spleen and adrenal glands are within normal limits. There is moderate to severe diffuse pancreatic atrophy. Bilateral ureteral stents redemonstrated which appear to be in satisfactory positioning. There is moderate bilateral hydroureteronephrosis with a degree of hydronephrosis progressing from prior exam, right greater than left. Left-sided nephrolithiasis redemonstrated with 2 mm calculus of the inferior pole left kidney. There is moderate symmetrical ventral wall thickening of the urinary bladder with focal area of increased attenuation measuring 1.6 x 1.3 cm within the right lateral aspect of the urinary bladder adjacent to the distal portion of the stent as seen on image 341 series 7 and image 69 series 3. Perivesicular inflammatory stranding. Calcifications of the central prostate. Nodular soft tissue attenuating lesions are again seen posterior to the right kidney measuring up to 9 mm which appear unchanged from comparison study 06/01/2017. Bulky retroperitoneal, pelvic sidewall and iliac chain adenopathy is again seen. Index aortic lymph node measuring 2.1 x 2.0 cm on image 160 series 7 appears unchanged. Confluent pelvic sidewall adenopathy measuring up to 6.8 x 1.9 cm on image 316 series 7 previously measured 7.1 x 2.2 cm, likely unchanged. No new or progressive adenopathy identified. Contrast is noted within the distal esophagus. No bowel obstruction identified. Mild colonic diverticulosis without diverticulitis. Normal appendix. Mild distention of the cecum has decreased from prior study and is again noted to be within the central abdomen, suggesting a mobile cecum. Decreased anasarca. No new sclerotic or lytic bony lesions identified. Multilevel degenerative changes of the spine. IMPRESSION: 1. No definite evidence of new or progressive metastatic disease within the chest, abdomen or pelvis. 2. Multifocal multilobar subpleural reticulation of the bilateral lungs has progressed from 02/03/2017 study suggesting fibrosis and/or pneumonitis. Emphysema with chronic fibrotic changes of the lung bases. 3. Unchanged solid pulmonary nodule of the right middle lobe. 4. Stable appearing sclerotic foci involving the fourth ribs bilaterally. 5. Stable appearance of the abdominal and pelvic lymphadenopathy with unchanged appearance of the right perinephric nodules. 6. Bilateral ureteral stents in place with progressively worsened bilateral hydronephrosis which is at least moderate. Focal area of increased attenuation adjacent to the distal right ureteral stent within the urinary bladder lumen measuring up to 1.6 cm suggests hemorrhagic debris or neoplasm. This could be correlated with cystoscopy. 7. Bladder wall thickening could be correlated with urinalysis. 8. Additional findings as above. Electronically signed by: Gray Brown M.D. 07/15/2017 4:44 PM Dictated Date/Time: 07/15/2017 4:11 PM
== END | disposition home or self-care (01) ==
LOC: C.CTS 15:24
PROVIDERS: ATTEND Internal Medicine Hematology & Oncology
DX: C61 Malignant neoplasm of prostate (principal)

== ENCOUNTER 2017-07-26 22:10 | Emergency (ER) | payer MEDICARE ==
[~2017-07-26] VITALS: Ht 182.9 cm; Wt 64.9 kg
[~2017-07-26 22:10] MED LIST changes: -DRON2.5C PO; -PRED-301 PO; -PRLSR20 PO
[2017-07-26 22:17] VITALS: TEMP 36.7; Ht 182.9 cm; Wt 64.9 kg
[2017-07-26 23:08] LABS: BASO % 0.5 %; BASO ABS # 0.02 K/uL (0-0.2); EOS % 1.8 %; HEMATOCRIT 22.8 % (42-52); LYMPH % 18.2 %; LYMPH ABS # 0.79 K/uL (1.2-3.4); MEAN CELL VOLUME 95.8 fL (80-100); MEAN CORPUSCULAR HEMOGLOBIN 31.5 pg (25-34); MEAN CORPUSCULAR HGB CONC 32.9 g/dl (32-36); MEAN PLATELET VOLUME 10.2 fL (7.4-10.4); MONO % 8.7 %; NEUT % 70.8 %; PLATELET COUNT 152 K/uL (130-400); RED BLOOD COUNT 2.38 M/uL (4.7-6.1); WHITE BLOOD COUNT 4.35 K/uL (4.8-10.8)
[2017-07-26 23:27] LABS: COMPLETE YES
[2017-07-26 23:32] LABS: BUN/CREATININE RATIO 9.4 (10-20); CALCIUM 8.4 mg/dl (8.5-10.1); CREATININE 1.54 mg/dl (0.60-1.40); POTASSIUM 3.9 mmol/L (3.5-5.1)
[2017-07-26 23:48] LABS: URINE APPEARANCE CLOUDY (CLEAR); URINE COLOR ORANGE; URINE EPITHELIAL CELL AUTO 0-5 /lpf (0-5); URINE NITRITE POS (NEG); URINE PH 6.5 (4.5-7.5); URINE SPECIFIC GRAVITY 1.023 (1.000-1.030); UROBILINOGEN NEG (NEG); ZZURINE CULT IF INDIC CATH NO
[2017-07-26 23:54] LABS: MANUAL MICROSCOPIC REQUIRED? NO; REVIEW REQ? YES
[2017-07-27 00:05] LABS: URINE BILIRUBIN NEG (NEG)
--- NOTE | 2017-07-27 00:53 | EMERGENCY ROOM VISIT NOTE ---
ED Visit Note First contact with patient: 22:23 I have personally evaluated and examined this patient. I agree with assessment and plan of Brit Torres PA-C. Hematuria likely secondary to stents which has happened before. HgB stable and patient notes feeling well otherwise. Clear with CBI and patient stable. UA consistent with blood without acute infection at this time.
--- NOTE | 2017-07-27 03:18 | EMERGENCY ROOM VISIT NOTE ---
History First contact with patient: 22:23 Chief Complaint: UNABLE TO VOID Stated Complaint: BLOCKED BLADDER History of Present Illness The patient is a 81 year old male who presents to the Emergency Room with complaints of hematuria for the past 4 days steadily getting worse. Patient tried to self cath and was unable to. Patient has a history of hematuria as he has prostate cancer with metastases to the bladder and enlarged lymph nodes throughout the abdomen. Patient has ureteral stents placed bilaterally. He follows with Dr. Loco. He had the same problem 2 months ago. He had a blood transfusion then. Last chemotherapy was in May. No recent radiation. Patient complains of urinary urgency and difficulty urinating. He feels as if he is retaining. Patient denies chest pain, dyspnea, back pain, fever, chills, bruising, bleeding gums, weakness, leg pain or swelling. Review of Systems See HPI for pertinent positives & negatives. A total of 10 systems reviewed and were otherwise negative. Past Medical/Surgical History Medical Problems: (1) Acute renal insufficiency (2) Bladder cancer (3) Hematuria (4) Hyponatremia (5) Prostate cancer Social History Smoking Status: Former Smoker Smokeless Tobacco Use: No Drug Use: none Marital Status: Housing Status: lives with family Occupation Status: employed Current/Historical Medications Scheduled Citalopram (Citalopram Hydrobromide), 20 MG PO QAM Dronabinol (Marinol), 2.5 MG PO QAM Omeprazole (Prilosec), 20 MG PO QAM Prednisone (Prednisone), 5 MG PO QAM Propranolol (Inderal), 20 MG PO BID Simvastatin (Zocor), 20 MG PO Q2D Tamsulosin HCl (Tamsulosin HCl), 0.4 MG PO QAM Scheduled PRN Oxybutynin Chloride (Oxybutynin Chloride), 5 MG PO BID PRN for BLADDER DISCOMFORT Oxycodone Ir (Roxicodone Ir), 5 MG PO Q4H PRN for Pain Physical Exam Vital Signs Date Time Temp Pulse Resp B/P (MAP) Pulse Ox O2 Delivery O2 Flow Rate FiO2 07/27/17 03:06 77 18 126/66 100 Room Air 07/27/17 00:11 78 126/65 100 Room Air 07/26/17 22:17 36.7 68 18 92/55 99 Room Air Physical Exam VITALS: Vitals are noted on the nurse's note and reviewed by myself. Vital signs stable. GENERAL: Pleasant male, in no acute distress, nondiaphoretic, well-developed well-nourished. SKIN: Capillary reflex less than 2 seconds. HEENT: Normocephalic. PERRLA. EOMI. Nares patent. Mucous membranes moist. Neck is supple without nuchal rigidity. HEART: Regular rate and rhythm LUNGS: Clear to auscultation bilaterally without wheezes, rales or rhonchi. No retractions or accessory muscle use. ABDOMEN: Positive bowel sounds x 4. Normal tympanic percussion. Soft, bladder distended, nontender, without masses or organomegaly. Noriega sign negative. No guarding or rebound tenderness. No CVA tenderness MUSCULOSKELETAL: No gross musculoskeletal defects. No pedal edema. No calf tenderness. NEURO: Patient was alert and oriented to person place and time. Normal sensation to light and sharp touch. No focal neurological deficits. Medical Decision & Procedures Laboratory Results 07/26/17 22:54 Red Blood Count 2.38, Mean Corpuscular Volume 95.8, Mean Corpuscular Hemoglobin 31.5, Mean Corpuscular Hemoglobin Concent 32.9, Mean Platelet Volume 10.2, Neutrophils (%) (Auto) 70.8, Lymphocytes (%) (Auto) 18.2, Monocytes (%) (Auto) 8.7, Eosinophils (%) (Auto) 1.8, Basophils (%) (Auto) 0.5, Neutrophils # (Auto) 3.08, Lymphocytes # (Auto) 0.79, Monocytes # (Auto) 0.38, Eosinophils # (Auto) 0.08, Basophils # (Auto) 0.02 07/26/17 22:54 Test 07/26/17 22:54 07/26/17 23:25 White Blood Count 4.35 K/uL (4.8-10.8) Red Blood Count 2.38 M/uL (4.7-6.1) Hemoglobin 7.5 g/dL (14.0-18.0) Hematocrit 22.8 % (42-52) Mean Corpuscular Volume 95.8 fL (80-100) Mean Corpuscular Hemoglobin 31.5 pg (25-34) Mean Corpuscular Hemoglobin Concent 32.9 g/dl (32-36) Platelet Count 152 K/uL (130-400) Mean Platelet Volume 10.2 fL (7.4-10.4) Neutrophils (%) (Auto) 70.8 % Lymphocytes (%) (Auto) 18.2 % Monocytes (%) (Auto) 8.7 % Eosinophils (%) (Auto) 1.8 % Basophils (%) (Auto) 0.5 % Neutrophils # (Auto) 3.08 K/uL (1.4-6.5) Lymphocytes # (Auto) 0.79 K/uL (1.2-3.4) Monocytes # (Auto) 0.38 K/uL (0.11-0.59) Eosinophils # (Auto) 0.08 K/uL (0-0.5) Basophils # (Auto) 0.02 K/uL (0-0.2) RDW Standard Deviation 55.6 fL (36.4-46.3) RDW Coefficient of Variation 15.8 % (11.5-14.5) Immature Granulocyte % (Auto) 0.0 % Immature Granulocyte # (Auto) 0.00 K/uL (0.00-0.02) Red Blood Cell Morphology Unremarkable Anion Gap 7.0 mmol/L (3-11) Est Creatinine Clear Calc Drug Dose 35.1 ml/min Estimated GFR () 48.7 Estimated GFR (Non- 42.0 BUN/Creatinine Ratio 9.4 (10-20) Calcium Level 8.4 mg/dl (8.5-10.1) Urine Color ORANGE Urine Appearance CLOUDY (CLEAR) Urine pH 6.5 (4.5-7.5) Urine Specific [place] 1.023 (1.000-1.030) Urine Protein 4+ (NEG) Urine Glucose (UA) NEG (NEG) Urine Ketones NEG (NEG) Urine Occult Blood 3+ (NEG) Urine Nitrite POS (NEG) Urine Bilirubin NEG (NEG) Urine Urobilinogen NEG (NEG) Urine Leukocyte Esterase MODERATE (NEG) Urine WBC (Auto) 0 /hpf (0-5) Urine RBC (Auto) >30 /hpf (0-4) Urine Hyaline Casts (Auto) 0 /lpf (0-5) Urine Epithelial Cells (Auto) 0-5 /lpf (0-5) Urine Bacteria (Auto) NEG (NEG) ED Course Prior records reviewed and summarized as above. Triage Nursing notes reviewed. Additional history obtained from family The patient's history was concerning for hematuria and difficulty urinating Differential diagnosis: Etiologies such as urinary retention, urinary obstruction, renal colic, UTI, as well as others were entertained.. Physical examination: As above ER treatment provided: Villela cath with irrigation On reassessment the patient felt better. Diagnostics interpreted by me: The labs revealed hematuria without signs of infection. Chronic anemia stable per chart review Imaging studies: US RENAL: Moderate hydronephrosis and bilateral ureteral stents noted in the renal pelvi. Possible 3 mm stone left lower pole. Renal cysts measuring up to 2.5 cm on right. Villela catheter in bladder. Debris within the urinary bladder, surrounding the Villela catheter, is compatible with clot, measuring up to 7.1 x 3.9 x 5.9 cm. Urinary bladder volume 287 cc Radiologist: Teto Pichardo MD (CHEST) THORAX WITHOUT, ABD/PELVIS ORAL CONT ONLY CT DOSE: 648.83 mGy.cm CLINICAL HISTORY: 81 years-old Male with PROSTATE CA. Follow-up study in a patient with prostate cancer . History of sclerotic right and left fourth rib lesions TECHNIQUE: Multiaxial CT images of the chest, abdomen and pelvis were performed without contrast. A dose lowering technique was utilized adhering to the principles of ALARA. COMPARISON: CT chest, abdomen and pelvis 06/01/2017 and 02/03/2017, CT abdomen and pelvis 05/30/2017. FINDINGS: CT CHEST: Mildly heterogeneous thyroid without dominant nodule. Nonenlarged mediastinal lymph nodes are seen without pathologic adenopathy by CT size criteria. The heart is mildly enlarged. Decreased attenuation of the cardiac blood pool suggests anemia. Coronary arterial disease. Calcifications of the aortic annulus are noted along with moderate atherosclerosis of the aorta. No aortic aneurysm identified. Trace bilateral pleural effusions, decreased in size from comparison. Mild upper lobe predominant paraseptal and centrilobular emphysema. No pneumothorax. Subpleural reticular opacities are noted within a multilobar multifocal distribution bilaterally which have progressed from 02/03/2017. There is improved aeration of the lungs from comparison study 06/01/2017. No lobar airspace consolidations. Calcific granuloma the left lower lobe. No suspicious pulmonary nodules identified. Mild subpleural cystic changes of the lung bases appear unchanged with bibasilar reticular opacities suggesting areas of fibrosis. No definite suspicious pulmonary nodules or masses identified to suggest metastatic disease. 5 x 4 mm solid pulmonary nodule of the lateral segment right middle lobe is seen on image 200 series 6, previously measuring up to 5 mm and study dated 02/03/2017. Central airways are patent. There is oral contrast within the majority of the thoracic esophagus suggesting reflux. Soft tissues of the chest are unremarkable. Mild bilateral gynecomastia. The bones appear mildly demineralized. Sclerotic foci involving the lateral aspects of the fourth ribs bilaterally are again seen which appear unchanged from comparison. No new lytic or sclerotic bony lesions identified. Nonspecific linear sclerosis again noted involving the anterior aspect of the left eighth rib which is also unchanged. Multilevel degenerative changes of the thoracic spine. Large Schmorl's nodes are again seen involving the inferior endplate of T11 and superior endplate T12, unchanged. CT ABDOMEN/PELVIS: 8 mm low attenuating lesion of the left hepatic lobe is noted on image 101 series 7 which is unchanged. No new hepatic mass lesions identified. No intrahepatic biliary ductal dilation. Gallbladder is unremarkable. Spleen and adrenal glands are within normal limits. There is moderate to severe diffuse pancreatic atrophy. Bilateral ureteral stents redemonstrated which appear to be in satisfactory positioning. There is moderate bilateral hydroureteronephrosis with a degree of hydronephrosis progressing from prior exam, right greater than left. Left-sided nephrolithiasis redemonstrated with 2 mm calculus of the inferior pole left kidney. There is moderate symmetrical ventral wall thickening of the urinary bladder with focal area of increased attenuation measuring 1.6 x 1.3 cm within the right lateral aspect of the urinary bladder adjacent to the distal portion of the stent as seen on image 341 series 7 and image 69 series 3. Perivesicular inflammatory stranding. Calcifications of the central prostate. Nodular soft tissue attenuating lesions are again seen posterior to the right kidney measuring up to 9 mm which appear unchanged from comparison study 06/01/2017. Bulky retroperitoneal, pelvic sidewall and iliac chain adenopathy is again seen. Index aortic lymph node measuring 2.1 x 2.0 cm on image 160 series 7 appears unchanged. Confluent pelvic sidewall adenopathy measuring up to 6.8 x 1.9 cm on image 316 series 7 previously measured 7.1 x 2.2 cm, likely unchanged. No new or progressive adenopathy identified. Contrast is noted within the distal esophagus. No bowel obstruction identified. Mild colonic diverticulosis without diverticulitis. Normal appendix. Mild distention of the cecum has decreased from prior study and is again noted to be within the central abdomen, suggesting a mobile cecum. Decreased anasarca. No new sclerotic or lytic bony lesions identified. Multilevel degenerative changes of the spine. IMPRESSION: 1. No definite evidence of new or progressive metastatic disease within the chest, abdomen or pelvis. 2. Multifocal multilobar subpleural reticulation of the bilateral lungs has progressed from 02/03/2017 study suggesting fibrosis and/or pneumonitis. Emphysema with chronic fibrotic changes of the lung bases. 3. Unchanged solid pulmonary nodule of the right middle lobe. 4. Stable appearing sclerotic foci involving the fourth ribs bilaterally. 5. Stable appearance of the abdominal and pelvic lymphadenopathy with unchanged appearance of the right perinephric nodules. 6. Bilateral ureteral stents in place with progressively worsened bilateral hydronephrosis which is at least moderate. Focal area of increased attenuation adjacent to the distal right ureteral stent within the urinary bladder lumen measuring up to 1.6 cm suggests hemorrhagic debris or neoplasm. This could be correlated with cystoscopy. 7. Bladder wall thickening could be correlated with urinalysis. 8. Additional findings as above. Electronically signed by: Gray Brown M.D. 07/15/2017 4:44 PM Dictated Date/Time: 07/15/2017 4:11 PM This appears to be urinary retention secondary to hematuria from blood clots. Villela catheter was left in place due to the extremely large blood clot in the bladder and concerns or recurrent urinary retention from this. This is a recurrent problem for the patient. His bladder was irrigated and multiple clots were removed. The urine was draining without difficulties. He was advised to follow-up with his urologist, Dr. Loco this week for definitive care for his ongoing problems or here in the ER sooner for urinary retention, difficulty urinating, worsening signs or symptoms or as needed. Urine seemed consistent with hematuria without signs of infection. Culture was placed. By the evaluation outlined above emergent etiologies such as renal colic as well as others were deemed relatively unlikely. The pt informed about the findings as listed above. All questions were answered and pleased with the treatment. Return instructions were outlined and the patient was discharged in stable condition. Referral: The patient was referred back to her Urologist for follow-up in 2 to 3 days for a recheck of the current condition. Case reviewed with my attending The chart was completed utilizing Dragon Speech voice recognition software. Grammatical errors, random word insertions, pronoun errors, and incomplete sentences are an occassional consequence of this system due to software limitations, ambient noise, and hardware issues. Any formal questions or concerns about the content, text, or information contained within the body of this dictation should be directly addressed to the physician music assistant for clarification. Medical Decision As above Medication Reconcilliation Current Medication List: was personally reviewed by me Blood Pressure Screening Patient's blood pressure: Normal blood pressure Impression Primary Impression: Hematuria Additional Impression: Urinary retention Departure Information Dispostion Home / Self-Care Condition GOOD Referrals Peewee Loco MD, Urology (PCP) Patient Instructions My [facility] Additional Instructions Frequently empty out the Villela catheter. Do not try to remove the Villela catheter by herself. Rest and drink plenty of fluids as tolerated. Continue current medications. Avoid strenuous activities and anything that worsens your pain. Resume normal activities once your symptoms resolve. Return to the ER immediately for worsening or persistent Villela catheter problems , abdominal pain, vomiting, fevers, chest pains, difficulty breathing, worsening of your condition, or as needed. Follow up with your urologist in 2-3 days for a recheck of your current condition. Problem Qualifiers Primary Impression: Hematuria Hematuria type: unspecified type Qualified Codes: R31.9 - Hematuria, unspecified
[2017-07-27 03:49] VITALS: BP 128/61; PULSE 71; O2SAT 97
--- NOTE | 2017-07-27 07:03 | DIAGNOSTIC IMAGING REPORT ---
(RENAL)RETROPERITON COMP HISTORY: Hematuria ua rentention, blood clots ? COMPARISON: CT 07/15/2017 FINDINGS: Right kidney: Moderate hydronephrosis unchanged in the prior CT exam. Maximum linear dimension 9.2 cm. Stent within the renal pelvis. 2.5 cm lower pole cyst. Left kidney: Moderate hydronephrosis unchanged from the prior CT study. 10.5 cm maximum linear dimension. Stent within the renal pelvis. 3 mm lower pole calcification. Normal corticomedullary differentiation and cortical thickness. Bladder: Moderate debris within the urinary bladder. Probable hematoma surrounding the Villela catheter. IMPRESSION: 1. Bilateral stable hydronephrosis. 2. Bilateral urinary tract stents. 3. Debris/hematoma surrounding the Villela catheter within the urinary bladder.. 4. Urinary bladder volume is 280 cc. The above report was generated using voice recognition software. It may contain grammatical, syntax or spelling errors. Electronically signed by: Edson Patel M.D. 07/27/2017 7:02 AM Dictated Date/Time: 07/27/2017 6:57 AM
[2017-07-28] MEDS ORDERED: DRON2.5C PO (11:53)
[2017-07-28] MEDS ORDERED: PRED-301 PO (12:09)
[2017-07-28] MEDS ORDERED: PRLSR20 PO (16:03)
[2017-07-28] MEDS ORDERED: PROP20TA67 PO (21:40)
[2017-07-28] MEDS ORDERED: DTR/5 PO (21:40)
[2017-07-28] MEDS ORDERED: TAMS0.4C38 PO (21:40)
[2017-07-28] MEDS ORDERED: OXYC1TAB3 PO (21:40)
[2017-07-28] MEDS ORDERED: CLX/20 PO (21:40)
== END 2017-07-27 03:49 | disposition home or self-care (01) ==
LOC: C.EDB 22:11 → C.EDA 07-27 03:49
DX: R33.9 Retention of urine, unspecified (principal); R31.9 Hematuria, unspecified; Z85.51 Personal history of malignant neoplasm of bladder; Z85.46 Personal history of malignant neoplasm of prostate; Z79.899 Other long term (current) drug therapy; Z87.891 Personal history of nicotine dependence

== ENCOUNTER 2017-07-28 21:04 | Inpatient (IN) | payer OTHER, MEDICARE ==
[~2017-07-28] VITALS: Ht 182.9 cm; Wt 82.1 kg
[~2017-07-28 21:04] MED LIST changes: -FSMD/70 PO; +MRN25 PO; +OXYC-90 PO; -OXYC1TAB3 PO; +PRED-301 PO; +PRLSR20 PO
[2017-07-28] MEDS ORDERED: OXYC-90 PO (21:40)
[2017-07-28] MEDS ORDERED: PROP20TA67 PO (21:40)
[2017-07-28] MEDS ORDERED: DTR/5 PO (21:40)
[2017-07-28] MEDS ORDERED: SODIUM CHLORIDE 0.9% 500ML 500 ML IV STA (21:40)
[2017-07-28] MEDS ORDERED: CLX/20 PO (21:40)
[2017-07-28] MEDS ORDERED: TAMS0.4C38 PO (21:40)
--- NOTE | 2017-07-28 21:44 | EMERGENCY ROOM VISIT NOTE ---
History Report prepared by La: Nayeli Bergman Under the Supervision of: Dr. Rosalba Mi M.D. First contact with patient: 21:34 Chief Complaint: DIZZY Stated Complaint: DIZZY,LOW BP Nursing Triage Summary: pt reports sudden onset of dizziness upon standing pt appears pale and thin states recent tx for cancer in May, currently on Hospice reports he was seen here over isela for inability to urinate catheter bag has obvious blood in it pt reports he called his hospice doctor who referred him to ER History of Present Illness The patient is a 81 year old male who presents to the Emergency Room with complaints of sudden dizziness occurring at 1600 today. The patient states that he was here 2 days ago because he was unable to urinate and states that he has a catheter. He states that he was not able to irrigate it this morning and that there were clumps of blood in it. He also reports having weakness today, but denies having chest pain, vomiting, and blood in his stool. His family states that the patient was short of breath today. The patient has a history of prostate cancer and states that he has 2 stents in his ureters. He states that he has had a blood transfusion and that the last one was around May 26. Source of History: patient, family Onset: 1600 today Position: other (global) Quality: other (dizziness) Associated Symptoms: + SOB, + weakness, No chest pain, No vomiting Note: additional symptom: blood in catheter Review of Systems See HPI for pertinent positives & negatives. A total of 10 systems reviewed and were otherwise negative. Past Medical & Surgical Medical Problems: (1) Acute renal insufficiency (2) Bladder cancer (3) Hematuria (4) Hyponatremia (5) Prostate cancer Family History Cancer Heart disease Social History Smoking Status: Never Smoker Drug Use: none Marital Status: Housing Status: lives with family Occupation Status: employed Current/Historical Medications Scheduled Citalopram (Citalopram Hydrobromide), 20 MG PO DAILY Dronabinol (Marinol), 2.5 MG PO QAM Omeprazole (Prilosec), 20 MG PO QAM Prednisone (Prednisone), 5 MG PO QAM Propranolol (Inderal), 20 MG PO BID Tamsulosin Hcl (Flomax), 0.4 MG PO QAM Scheduled PRN Oxybutynin Chloride (Ditropan), 5 MG PO BID PRN for Bladder pain Oxycodone Ir (Roxicodone Ir), 5 MG PO Q4H PRN for Pain Allergies Coded Allergies: No Known Allergies (Unverified , 07/26/17) Physical Exam Vital Signs Date Time Temp Pulse Resp B/P (MAP) Pulse Ox O2 Delivery O2 Flow Rate FiO2 07/29/17 00:30 36.8 58 18 127/62 100 07/29/17 00:00 36.8 58 20 125/63 100 07/28/17 23:45 36.7 57 20 117/61 98 07/28/17 23:37 36.6 60 16 123/66 100 Room Air 07/28/17 23:36 36.6 60 20 123/66 100 07/28/17 23:00 60 20 108/77 100 07/28/17 22:24 62 16 105/57 98 Room Air 72 76/45 68 87/50 07/28/17 21:22 59 16 99/57 98 Room Air 07/28/17 21:22 59 07/28/17 21:07 36.6 68 18 86/46 98 Room Air Physical Exam Vital signs reviewed. General: Chronically ill-appearing male, pale, in no significant distress. Villela catheter in place with gross hematuria. HEENT: No scleral icterus, PERRLA, neck supple. Pale conjunctiva. Atraumatic. Cardiovascular: Regular rate and rhythm, no extra sounds. Pulmonary: Clear to auscultation bilaterally, normal work of breathing. Abdomen: Soft, nontender, nondistended, positive bowel sounds. Musculoskeletal: Atraumatic, no peripheral edema. Neurologic: Patient awake alert and oriented x 3 Skin: Warm, dry, no rash Medical Decision & Procedures Laboratory Results Test 07/28/17 22:09 07/28/17 22:21 07/28/17 22:26 Red Blood Cell Morphology Unremarkable Prothrombin Time 11.0 SECONDS (9.0-12.0) Prothromb Time International Ratio 1.0 (0.9-1.1) Activated Partial Thromboplast Time 27.3 SECONDS (21.0-31.0) Partial Thromboplastin Ratio 1.1 Total Bilirubin 0.2 mg/dl (0.2-1) Direct Bilirubin < 0.1 mg/dl (0-0.2) Aspartate Amino Transf (AST/SGOT) 14 U/L (15-37) Alanine Aminotransferase (ALT/SGPT) 9 U/L (12-78) Alkaline Phosphatase 68 U/L (45-117) Total Protein 5.4 gm/dl (6.4-8.2) Albumin 2.6 gm/dl (3.4-5.0) Bedside Hemoglobin 5.8 g/dl (14.0-18.0) Bedside Hematocrit 17 % (42-52) Bedside Sodium 137 mEq/L (135-144) Bedside Potassium 4.2 mEq/L (3.3-5.0) Bedside Chloride 104 mEq/L (101-112) Bedside Total CO2 22 mEq/l (24-31) Bedside Blood Urea Nitrogen 16 mg/dl (7-18) Bedside Creatinine 1.5 mg/dl (0.6-1.3) Bedside Glucose (other) 131 mg/dl (70-99) Bedside Ionized Calcium ([place]) 1.08 mmol/l (1.12-1.32) Urine Color RED Urine Appearance CLOUDY (CLEAR) Urine pH (4.5-7.5) Urine Specific [place] 1.027 (1.000-1.030) Urine Protein POS (NEG) Urine Glucose (UA) (NEG) Urine Ketones (NEG) Urine Occult Blood (NEG) Urine Nitrite (NEG) Urine Bilirubin (NEG) Urine Urobilinogen (NEG) Urine Leukocyte Esterase (NEG) Urine RBC >30 /hpf (0-4) Urine WBC 10-30 /hpf (0-5) Urine Epithelial Cells 0-5 /lpf (0-5) Urine Bacteria 1+ (NEG) Laboratory results per my review. Medications Administered Medications (Trade) Dose Ordered Sig/Ismael Route Start Time Stop Time Status Last Admin Dose Admin Sodium Chloride 500 ml @ 999 mls/hr Q31M STAT IV 07/28/17 21:40 07/28/17 22:10 DC 07/28/17 22:27 999 MLS/HR Ondansetron HCl (Zofran Inj) 4 mg Q6H PRN IV 07/29/17 00:30 08/28/17 00:29 07/29/17 15:02 4 MG Oxybutynin Chloride (Ditropan Tab) 5 mg BID PRN PO 07/29/17 00:30 07/29/17 16:51 DC 07/29/17 08:29 5 MG Oxycodone HCl (Roxicodone Immediate Rel Tab) 5 mg Q4H PRN PO 07/29/17 00:30 08/12/17 00:29 07/29/17 19:51 5 MG ECG Indication: weakness Rate (beats per minute): 55 Rhythm: sinus bradycardia, sinus with SA Findings: no ectopy, other (left axis deviation, diffuse T wave flattening ) ED Course 2137: Past medical records reviewed. The patient was evaluated in room B11B. A complete history and physical examination was performed. 2139: Ordered Sodium Chloride 500 ml @ 999 mls/hr IV. 2244: I reviewed the patient's case with Dr. Leiva. She will evaluate the patient for further management. 2248: The patient is awaiting blood from [place] for a transfusion. His Villela catheter has been replaced. 2320: Upon reevaluation, the patient is resting comfortably. I discussed laboratory and radiographic results with him. He verbalized agreement of the treatment plan. The patient will be evaluated for further management and care. Medical Decision Differential diagnosis: Etiologies such as metabolic, infection, hypo/hyperglycemia, electrolyte abnormalities, cardiac sources, intracerebral event, toxicologic, neurologic, anemia, as well as others were entertained. This patient was evaluated and appeared to be in no significant distress. IV access was obtained and laboratory work was drawn. Patient states he has been dizzy today. He thinks that position changes of the most difficult. He was orthostatic on exam. Patient was hydrated with normal saline solution. He was type and crossed for 2 units PRBCs. Given the recent GI bleed and need for blood, the patient will be evaluated by the hospitalist service for admission. He was consented for blood transfusion and they're waiting 2 units. Medication Reconcilliation Current Medication List: was personally reviewed by me Blood Pressure Screening Patient's blood pressure: Low blood pressure will be monitored by hospitalist Consults Time Called: 2199 Consulting Physician: Dr. Leiva- Resident Returned Call: [phone] I reviewed the patient's case with Dr. Leiva. She will evaluate the patient for further management. Impression Primary Impression: Anemia Additional Impression: Hemorrhage of urinary bladder wall Scribe Attestation The scribe's documentation has been prepared under my direction and personally reviewed by me in its entirety. I confirm that the note above accurately reflects all work, treatment, procedures, and medical decision making performed by me. Departure Information Dispostion Being Evaluated By Hospitalist Referrals Crow Metcalf M.D. (PCP) Patient Instructions My [facility] Problem Qualifiers
[2017-07-28 22:34] LABS: ISTAT CREATININE 1.5 mg/dl (0.6-1.3); ISTAT IONIZED CALCIUM 1.08 mmol/l (1.12-1.32); ISTAT POTASSIUM 4.2 mEq/L (3.3-5.0)
[2017-07-28 22:39] LABS: HEMATOCRIT 18.3 % (42-52); MEAN CELL VOLUME 96.3 fL (80-100); MEAN CORPUSCULAR HEMOGLOBIN 31.6 pg (25-34); MEAN CORPUSCULAR HGB CONC 32.8 g/dl (32-36); MEAN PLATELET VOLUME 10.7 fL (7.4-10.4); PLATELET COUNT 145 K/uL (130-400); RED CELL DISTRIBUTION WIDTH CV 15.9 % (11.5-14.5); WHITE BLOOD COUNT 4.66 K/uL (4.8-10.8)
[2017-07-28 22:40] LABS: ALBUMIN 2.6 gm/dl (3.4-5.0); BLOOD UREA NITROGEN 19 mg/dl (7-18); CALCIUM 7.7 mg/dl (8.5-10.1); CARBON DIOXIDE 23 mmol/L (21-32); CREATININE 1.41 mg/dl (0.60-1.40); GLUCOSE 129 mg/dl (70-99); POTASSIUM 4.2 mmol/L (3.5-5.1); SODIUM 137 mmol/L (136-145)
[2017-07-28 22:42] LABS: ALKALINE PHOSPHATASE 68 U/L (45-117); ALT/SGPT 9 U/L (12-78); AST/SGOT 14 U/L (15-37); TOTAL PROTEIN 5.4 gm/dl (6.4-8.2)
[2017-07-28 22:43] LABS: PTT PATIENT 27.3 SECONDS (21.0-31.0)
[2017-07-28 23:00] LABS: BASO % 0.2 %; BASO ABS # 0.01 K/uL (0-0.2); EOS % 1.3 %; EOS ABS # 0.06 K/uL (0-0.5); LYMPH % 16.1 %; LYMPH ABS # 0.75 K/uL (1.2-3.4); MONO % 7.7 %; MONO ABS # 0.36 K/uL (0.11-0.59); NEUT % 74.7 %; NEUT ABS # 3.48 K/uL (1.4-6.5)
[2017-07-28 23:36] VITALS: BP 123/66; PULSE 60; TEMP 36.6; O2SAT 100
[2017-07-28 23:45] VITALS: BP 117/61; PULSE 57; TEMP 36.7; O2SAT 98
[2017-07-29] VITALS (30 sets, daily range): BP systolic 105–169; BP diastolic 42–80; PULSE 49–64; TEMP 36.6–37.1; O2SAT 97–100; Ht 182.9 cm; Wt 82.1 kg
[2017-07-29] MEDS ORDERED: MAGNESIUM HYDROXIDE SUSP 30 ML UDC PO PRN (00:30)
[2017-07-29] MEDS ORDERED: POLYETHYLENE (MIRALAX) 17 GM PACK PO PRN (00:30)
[2017-07-29] MEDS ORDERED: NITROGLYCERIN 0.4 MG SL PER TAB CHARGE SL PRN (00:30)
[2017-07-29] MEDS ORDERED: ALUMINUM/MAGNESIUM/SIMETH (MAALOX MAX) 30 ML UDC PO PRN (00:30)
[2017-07-29] MEDS ORDERED: ONDANSETRON INJ 2 MG/ML 2 ML VIAL IV PRN (00:30)
[2017-07-29] MEDS ORDERED: OXYBUTYNIN CHLORIDE 5 MG TAB PO PRN (00:30)
--- NOTE | 2017-07-29 00:51 | History and Physical ---
History & Physical Date & Time of Service: Jul 29, 2017 at 00:47 Chief Complaint: Dizzy,Low Bp Primary Care Physician: Crow Metcalf M.D. History of Present Illness Source: patient, hospital records This is an 81 y/o M with metastatic pancreatic ca, urinary retention, chronic hematuria s/p TURP who presents with worsening hematuria and shortness of breath. He reports that he has had ureteral stents placed and follows dr. Loco. He has been having trouble with irrigating and has had multiple clumps of blood. He is weaker but denies chest pain, hematochezia, melena, hematemesis. During his last admission, he was sent home with hospice. He was found to have a hgb of 5.8 today. Past Medical/Surgical History Medical Problems: (1) Bladder cancer Status: Resolved (2) Prostate cancer Status: Chronic Family History Cancer Heart disease Social History Smoking Status: Never Smoker Smokeless Tobacco Use: No Alcohol Use: none Drug Use: none Marital Status: Housing status: lives with family Occupational Status: employed Immunizations History of Influenza Vaccine: Yes History of Tetanus Vaccine?: Yes History of Pneumococcal: Yes History of Hepatitis B Vaccine: No Multi-Drug Resistant Organisms History of MDRO: No Allergies Coded Allergies: No Known Allergies (Unverified , 07/26/17) Home Medications Scheduled Citalopram (Citalopram Hydrobromide), 20 MG PO DAILY Dronabinol (Marinol), 2.5 MG PO QAM Omeprazole (Prilosec), 20 MG PO QAM Prednisone (Prednisone), 5 MG PO QAM Propranolol (Inderal), 20 MG PO BID Tamsulosin Hcl (Flomax), 0.4 MG PO QAM Scheduled PRN Oxybutynin Chloride (Ditropan), 5 MG PO BID PRN for Bladder pain Oxycodone Ir (Roxicodone Ir), 5 MG PO Q4H PRN for Pain Review of Systems Constitutional: No fever, No chills Eyes: No worsening of vision Respiratory: + shortness of breath, + dyspnea on exertion, + dyspnea at rest Cardiovascular: No chest pain Abdomen: No pain, No nausea, No vomiting, No diarrhea Genitourinary - Male: + hematuria, No dysuria, No urinary frequency Endocrine: + fatigue Physical Exam Vital Signs Date Time Temp Pulse Resp B/P (MAP) Pulse Ox O2 Delivery O2 Flow Rate FiO2 07/29/17 00:30 36.8 58 18 127/62 100 07/29/17 00:00 36.8 58 20 125/63 100 07/28/17 23:45 36.7 57 20 117/61 98 07/28/17 23:37 36.6 60 16 123/66 100 Room Air 07/28/17 23:36 36.6 60 20 123/66 100 07/28/17 23:00 60 20 108/77 100 07/28/17 22:24 62 16 105/57 98 Room Air 72 76/45 68 87/50 07/28/17 21:22 59 16 99/57 98 Room Air 07/28/17 21:22 59 07/28/17 21:07 36.6 68 18 86/46 98 Room Air General Appearance: no apparent distress Eyes: PERRL, EOMI ENT: hearing grossly normal Neck: supple Respiratory/Chest: lungs clear, normal breath sounds, no respiratory distress, no accessory muscle use Cardiovascular: no murmur, + bradycardia Abdomen/GI: normal bowel sounds, non tender, soft Genitourinary - Male: + pertinent finding (catheter and bag with blood) Back: no CVA tenderness Extremities/Musculoskelatal: no calf tenderness, no pedal edema, normal range of motion Neurologic/Psych: sewing 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-XII nml as tested, no motor/sensory deficits, alert, normal mood/affect, oriented x 3 Diagnostics Laboratory Results Results Past 24 Hours Test 07/28/17 22:09 07/28/17 22:21 07/28/17 22:26 Range/Units White Blood Count 4.66 4.8-10.8 K/uL Red Blood Count 1.90 4.7-6.1 M/uL Hemoglobin 6.0 14.0-18.0 g/dL Hematocrit 18.3 42-52 % Mean Corpuscular Volume 96.3 80-100 fL Mean Corpuscular Hemoglobin 31.6 25-34 pg Mean Corpuscular Hemoglobin Concent 32.8 32-36 g/dl Platelet Count 145 130-400 K/uL Mean Platelet Volume 10.7 7.4-10.4 fL Neutrophils (%) (Auto) 74.7 % Lymphocytes (%) (Auto) 16.1 % Monocytes (%) (Auto) 7.7 % Eosinophils (%) (Auto) 1.3 % Basophils (%) (Auto) 0.2 % Neutrophils # (Auto) 3.48 1.4-6.5 K/uL Lymphocytes # (Auto) 0.75 1.2-3.4 K/uL Monocytes # (Auto) 0.36 0.11-0.59 K/uL Eosinophils # (Auto) 0.06 0-0.5 K/uL Basophils # (Auto) 0.01 0-0.2 K/uL RDW Standard Deviation 56.0 36.4-46.3 fL RDW Coefficient of Variation 15.9 11.5-14.5 % Immature Granulocyte % (Auto) 0.0 % Immature Granulocyte # (Auto) 0.00 0.00-0.02 K/uL Red Blood Cell Morphology Unremarkable Prothrombin Time 11.0 9.0-12.0 SECONDS Prothromb Time International Ratio 1.0 0.9-1.1 Activated Partial Thromboplast Time 27.3 21.0-31.0 SECONDS Partial Thromboplastin Ratio 1.1 Sodium Level 137 136-145 mmol/L Potassium Level 4.2 3.5-5.1 mmol/L Chloride Level 106 98-107 mmol/L Carbon Dioxide Level 23 21-32 mmol/L Anion Gap 8.0 16.0 16-25 mmol/L Blood Urea Nitrogen 19 7-18 mg/dl Creatinine 1.41 0.60-1.40 mg/dl Est Creatinine Clear Calc Drug Dose 45.9 ml/min Estimated GFR () 54.1 Estimated GFR (Non- 46.7 BUN/Creatinine Ratio 13.7 10-20 Random Glucose 129 70-99 mg/dl Calcium Level 7.7 8.5-10.1 mg/dl Total Bilirubin 0.2 0.2-1 mg/dl Direct Bilirubin < 0.1 0-0.2 mg/dl Aspartate Amino Transf (AST/SGOT) 14 15-37 U/L Alanine Aminotransferase (ALT/SGPT) 9 12-78 U/L Alkaline Phosphatase 68 45-117 U/L Total Protein 5.4 6.4-8.2 gm/dl Albumin 2.6 3.4-5.0 gm/dl Bedside Hemoglobin 5.8 14.0-18.0 g/dl Bedside Hematocrit 17 42-52 % Bedside Sodium 137 135-144 mEq/L Bedside Potassium 4.2 3.3-5.0 mEq/L Bedside Chloride 104 101-112 mEq/L Bedside Total CO2 22 24-31 mEq/l Bedside Blood Urea Nitrogen 16 7-18 mg/dl Bedside Creatinine 1.5 0.6-1.3 mg/dl Bedside Glucose (other) 131 70-99 mg/dl Bedside Ionized Calcium (Brenna) 1.08 1.12-1.32 mmol/l Urine Color RED Urine Appearance CLOUDY CLEAR Urine pH 4.5-7.5 Urine Specific [place] 1.027 1.000-1.030 Urine Protein POS NEG Urine Glucose (UA) NEG Urine Ketones NEG Urine Occult Blood NEG Urine Nitrite NEG Urine Bilirubin NEG Urine Urobilinogen NEG Urine Leukocyte Esterase NEG Urine RBC >30 0-4 /hpf Urine WBC 10-30 0-5 /hpf Urine Epithelial Cells 0-5 0-5 /lpf Urine Bacteria 1+ NEG Microbiology Results 07/28/17 Urine Culture, Received Pending Impression Assessment and Plan This is an 81 y/o M who presents with worsening hematuria Anemia 2/2 Hematuria setting of metastatic prostate cancer Transfuse 2 units of irradiated prbcs trend H/H Consult Urology Consult oncology Keep NPO Metastatic prostate ca. Consult oncology- chemo on hold per patient Continue tamsulosin and pain control prednisone, dronabinol Tremors? Patient on propanlol Consider holding due to bradycardia h/o of alcohol abuse Reports no alcohol since last admission. DVT proph Chemical contraindicated SCDs Code: Full Attending addendum: I have physically seen this patient, have supervised the medical residents activities, and agree with the H&P unless as otherwise noted. Assessment and Plan: Anemia requiring transfusion/Gross Hematuria/Bladder Cancer/Metastatic Prostate Cancer-- Transfuse 2 units of irradiated PRBCs now, then repeat H&H H&H every 6 hours Consult his urologist and oncologist Nothing by mouth for now except essential medications Continue tamsulosin, prednisone and dronabinol. Does not appear to need stress dose steroids at this time Depression-- Continue citalopram 20 mg by mouth daily GERD-- Change Prilosec to pantoprazole Tremors-- On propranolol 20 mg by mouth twice a day, if bradycardia persists, would cut dose in half. Level of Care Med/Surg Advanced Directives Existing Advance Directive: No Existing Living Will: No Existing Power of Bus Assistant: No VTE Prophylaxis VTE Risk Assessment Done? Y/N: Yes Risk Level: Moderate Given or contraindicated: SCD's
--- NOTE | 2017-07-29 01:55 | NUR ---
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
--- NOTE | 2017-07-29 02:00 | NUR ---
A:FIRST UNIT RBCS FINISHED WITHOUT SX OF TRANSFUSION REACTION
--- NOTE | 2017-07-29 03:10 | NUR ---
A:SECOND UNIT RBCS STARTED
--- NOTE | 2017-07-29 04:00 | NUR ---
A:PATIENT RESTING COMFORTABLY IN [id number]-[id number]-[id number] MONITOR DISPLAYS SB HR 50S-SEE EMR FOR COMPLETE SEAFOOD CLERK-SECOND UNIT OF RBCS INFUSING VIA RIGHT ARM IV SITE-MC CATH INTACT AND DRAINING-PATIENT TURNED AND REPOSITIONED WITH SKIN CARE-CLEAR LUNG SOUNDS HEARD-SAFETY MAINTAINED
--- NOTE | 2017-07-29 05:15 | NUR ---
A:SECOND UNIT RBCS FINISHED WITHOUT SX OF TRANSFUSION REACTION-NS STARTED @ 75 ML/HR VIA RIGHT ARM IV SITE
[2017-07-29] MEDS: SODIUM CHLORIDE 0.9% 1000ML 1,000 ML IV SCH ×2 (05:19→15:50)
[2017-07-29 06:44] LABS: HEMATOCRIT 23.2 % (42-52); HEMOGLOBIN 7.7 g/dL (14.0-18.0)
--- NOTE | 2017-07-29 07:13 | Family Medicine Progress Note ---
Progress Note Date of Service Jul 29, 2017. Subjective Pt evaluation today including: conversation w/ patient, physical exam, chart review, lab review, review of inpatient medication list Pain: No pain reported at this time PO Intake: Tolerating well Voiding: barboza catheter in place Patient has no complaints at this time, denies SOB or dizziness. Agreeable to transfusions. States he's had this before and is familiar with course. Constitutional: + fatigue, No fever, No chills, No sweats, No weight loss, No weakness, No problem reported Respiratory: No cough, No sputum, No wheezing, No shortness of breath, No dyspnea on exertion, No dyspnea at rest, No hemoptysis, No problem reported Abdomen: No pain, No nausea, No vomiting, No diarrhea, No constipation, No GI bleeding, No problem reported Male : + hematuria, No dysuria, No urinary frequency, No incontinence, No nocturia more than once/night, No slowing stream, No sexual dysfunction, No problem reported All Other Systems: Reviewed and Negative Medications Current Inpatient Medications Medications (Trade) Dose Ordered Sig/Ismael Route Start Time Stop Time Status Last Admin Dose Admin Sodium Chloride 1,000 ml @ 75 mls/hr [id number] IV 07/29/17 02:30 08/28/17 02:29 07/29/17 05:19 75 MLS/HR Acetaminophen (Tylenol Tab) 650 mg Q4H PRN PO 07/29/17 00:30 08/28/17 00:29 Al Hydrox/Mg Hydrox/Simethicone (Maalox Max Susp) 15 ml Q4H PRN PO 07/29/17 00:30 08/28/17 00:29 Magnesium Hydroxide (Milk Of Magnesia Susp) 30 ml Q12H PRN PO 07/29/17 00:30 08/28/17 00:29 Ondansetron HCl (Zofran Inj) 4 mg Q6H PRN IV 07/29/17 00:30 08/28/17 00:29 07/29/17 15:02 4 MG Nitroglycerin (Nitrostat Tab) 0.4 mg UD PRN SL 07/29/17 00:30 08/28/17 00:29 Polyethylene (Miralax Powder Packet) 17 gm DAILY PRN PO 07/29/17 00:30 08/28/17 00:29 Citalopram Hydrobromide (celeXA TAB) 20 mg DAILY PO 07/29/17 09:00 08/28/17 08:59 07/29/17 08:29 20 MG Dronabinol (Marinol Cap) 2.5 mg QAM PO 07/29/17 09:00 08/28/17 08:59 07/29/17 08:43 2.5 MG Oxybutynin Chloride (Ditropan Tab) 5 mg BID PRN PO 07/29/17 00:30 08/28/17 00:29 07/29/17 08:29 5 MG Oxycodone HCl (Roxicodone Immediate Rel Tab) 5 mg Q4H PRN PO 07/29/17 00:30 08/12/17 00:29 07/29/17 15:50 5 MG Prednisone (PredniSONE TAB) 5 mg QAM PO 07/29/17 09:00 08/28/17 08:59 07/29/17 08:29 5 MG Propranolol HCl (Inderal Tab) 20 mg BID PO 07/29/17 09:00 08/28/17 08:59 Tamsulosin HCl (Flomax Cap) 0.4 mg QAM PO 07/29/17 09:00 08/28/17 08:59 07/29/17 08:29 0.4 MG Pantoprazole Sodium (Protonix Tab) 40 mg QAM PO 07/29/17 09:00 08/28/17 08:59 07/29/17 08:30 40 MG Objective Vital Signs Date Time Temp Pulse Resp B/P (MAP) Pulse Ox O2 Delivery O2 Flow Rate FiO2 07/29/17 16:30 36.8 59 14 141/66 100 07/29/17 16:01 100 Room Air 07/29/17 16:01 36.8 54 16 142/62 (88) 100 Room Air 07/29/17 16:00 36.8 57 18 142/64 100 07/29/17 16:00 36.7 57 18 142/62 100 07/29/17 15:30 37.0 50 16 112/55 100 07/29/17 15:15 36.9 57 15 113/56 100 07/29/17 14:59 36.9 55 16 131/61 100 07/29/17 14:30 36.8 60 18 109/43 100 07/29/17 14:30 36.8 50 16 109/43 100 07/29/17 14:00 36.8 51 14 110/56 100 07/29/17 13:30 36.7 53 18 130/60 100 07/29/17 13:15 36.7 62 16 129/42 100 07/29/17 12:55 36.8 49 14 122/51 07/29/17 12:00 36.8 54 16 105/49 (67) 100 Room Air 07/29/17 12:00 100 Room Air 07/29/17 08:00 100 Room Air 07/29/17 08:00 36.8 51 16 134/53 (80) 100 Room Air 07/29/17 05:15 36.7 54 16 111/50 100 07/29/17 05:00 59 16 131/52 99 07/29/17 04:00 100 Room Air 07/29/17 04:00 36.8 58 20 128/62 (84) 100 Room Air 07/29/17 04:00 36.8 56 12 128/62 99 07/29/17 03:41 36.6 64 12 129/47 100 Room Air 07/29/17 03:30 36.7 57 17 117/55 97 07/29/17 03:15 36.7 57 18 127/59 100 07/29/17 03:10 36.7 55 16 120/56 100 07/29/17 02:00 36.6 56 18 113/55 100 07/29/17 01:30 36.7 58 16 132/65 100 07/29/17 01:30 36.7 55 20 132/65 99 07/29/17 00:45 57 16 128/65 99 Room Air 07/29/17 00:30 36.8 58 18 127/62 100 07/29/17 00:00 36.8 58 20 125/63 100 07/28/17 23:45 36.7 57 20 117/61 98 07/28/17 23:37 36.6 60 16 123/66 100 Room Air 07/28/17 23:36 36.6 60 20 123/66 100 07/28/17 23:00 60 20 108/77 100 07/28/17 22:24 62 16 105/57 98 Room Air 72 76/45 68 87/50 07/28/17 21:22 59 16 99/57 98 Room Air 07/28/17 21:22 59 07/28/17 21:07 36.6 68 18 86/46 98 Room Air Physical Exam General Appearance: WD/WN, no apparent distress Eyes: normal inspection, PERRL, EOMI ENT: hearing grossly normal Neck: supple, no JVD Respiratory/Chest: chest non-tender, lungs clear, normal breath sounds, no respiratory distress, no accessory muscle use Cardiovascular: regular rate, rhythm, no edema, no gallop, no JVD, no murmur Abdomen: normal bowel sounds, non tender, soft, no organomegaly, no pulsatile mass Extremities: non-tender, normal inspection, no pedal edema, no calf tenderness Neurologic/Psychiatric: saw cleaner II-XII nml as tested, no motor/sensory deficits, alert, normal mood/affect, oriented x 3 Skin: normal color, warm/dry, no rash Laboratory Results Last Resulted 07/28/17 22:09 Red Blood Count 1.90, Mean Corpuscular Volume 96.3, Mean Corpuscular Hemoglobin 31.6, Mean Corpuscular Hemoglobin Concent 32.8, Mean Platelet Volume 10.7, Neutrophils (%) (Auto) 74.7, Lymphocytes (%) (Auto) 16.1, Monocytes (%) (Auto) 7.7, Eosinophils (%) (Auto) 1.3, Basophils (%) (Auto) 0.2, Neutrophils # (Auto) 3.48, Lymphocytes # (Auto) 0.75, Monocytes # (Auto) 0.36, Eosinophils # (Auto) 0.06, Basophils # (Auto) 0.01 Last Resulted 07/28/17 22:09 Past 24 Hours Test 07/28/17 22:09 Range/Units Prothromb Time International Ratio 1.0 0.9-1.1 Prothrombin Time 11.0 9.0-12.0 SECONDS Assessment and Plan This is an 81 y/o M PMH significant for metastatic prostate and bladder cancer on hospice who presents with worsening hematuria via indwelling catheter. Normocytic Acute Blood Loss Anemia 2/2 Hematuria in setting of metastatic prostate ca -Hgb has trended up from 5.8 to 7.6 -Transfused total of 4 units of irradiated prbcs -Trend H/H q8 -Repeat CBC/BMP in AM -Consulted Urology, appreciate recs: barboza irrigation, supportive transfusions prn, continue flomax Discussed with patient that hematuria likely related to cancer burden -Consulted oncology, appreciate recs Metastatic prostate ca. -On hospice, at home -Continue with oncology -Continue tamsulosin 0.4, pain control (oxycodone 5), oxybutynin optimized to 10 mg BID -Continue prednisone 5, dronabinol 2.5 Tremors -Patient on propanlol 20, will continue to hold due to bradycardia h/o of alcohol abuse Reports no alcohol since last admission. DVT proph Chemical contraindicated, SCDs Code:Full Dispo: Med/surg; discharge uncertain at this time Resident Physician Supervision Note: I interviewed and examined the patient. Discussed with Dr. Santiago and agree with findings and plan as documented in the note. Any exceptions or clarifications are listed here: None Documented By: Martín Weathers feeling ok post transfusion. still gross hematuria. d/w pt that this unfortunately likely relates to cancer burden and likely will need to be managed symptomatically rather than in a curative fashion. he expresses understanding. vitals noted nad breathing unlabored no pallor or icterus acute blood loss anemia from hemorrhage related to metastatic urinary tract cancer - improved post transfusion - with ongoing bleeding and frailty - transfuse 2 more units and follow. irrigate. unfortunately quality of life is likely the most important measure at this point. Resident Tracking Resident Involvement: Resident Care Provided Care Provided: Adult Hospital Medicine
--- NOTE | 2017-07-29 08:00 | NUR ---
Patient up resting in bed this morning. Patient remains NPO with ice chips. Patient remains alert and oriented. VS stable. V[place] remains patent, but draining dark bloody urine. No clots noted. No need for irrigation yet this shift. Hbg 7.7 this morning after recieving 2 units of PRBSs over night. Patient denies any pain. IV site remains patent infusing NSS @75. Please see charting for full assessment. Patient denies any needs at this time. VS remain stable. Call olivo and phone in reach. Will continue to monitor.
[2017-07-29] MEDS: CITALOPRAM 20 MG TAB PO SCH (08:29)
[2017-07-29] MEDS: TAMSULOSIN HCL 0.4 MG CAP PO SCH (08:29)
[2017-07-29] MEDS: PROPRANOLOL HCL 20 MG TAB PO SCH ×2 (08:30→19:50)
[2017-07-29] MEDS: PANTOprazole SOD 40 MG TAB PO SCH (08:30)
[2017-07-29] MEDS: DRONABINOL 2.5 MG CAP PO SCH (08:43)
--- NOTE | 2017-07-29 09:59 | ONCOLOGY CONSULTATION ---
DATE OF CONSULTATION: 07/29/2017 REASON FOR CONSULTATION: An 81-year-old gentleman with metastatic bladder and prostate cancer, known to the [facility]. HISTORY OF PRESENT ILLNESS: Mr. Belcher is an 81-year-old gentleman well known to [facility], currently under the care of Dr. Kunal Valenzuela with metastatic bladder and prostate cancers. Apparently, over the past couple of days, he developed worsening hematuria yielding a multitude of blood clots through his urinary stream. At one point, he became profoundly weak and dizzy, which prompted his visit to the Emergency Room. The patient has been hospitalized frequently. His most recent in early July at which time Dr. Valenzuela saw him in the office as an outpatient to review current therapeutic strategy. At that time, it was decided to forego any further chemotherapy and the patient entered outpatient hospice. His last known treatment included Taxotere and Cabazitaxel. In the Emergency Room, admitting labs including peripheral blood counts were performed revealing a significantly decreased hemoglobin of 5.8 and a hematocrit of 17%. The patient was transfused 2 units of packed RBCs and admitted to the ICU. At the bedside, I asked Mr. Belcher where he was in regards to hospice. He apparently has ratificated the benefit to proceed with any invasive procedures necessary to stabilize hematuria. I asked him specifically if he was interested in returning to chemotherapy and he desires a "wait and see" approach. I will discuss further with Dr. Valenzuela. PAST MEDICAL HISTORY: Again, significant for both prostate and bladder cancers. CURRENT MEDICATIONS: Include citalopram 20 mg p.o. every day, Marinol 2.5 mg p.o. q.a.m., omeprazole 20 mg p.o. q.a.m., prednisone 5 mg p.o. q.a.m., Inderal 20 mg p.o. b.i.d. and Flomax 0.4 mg p.o. every day. ALLERGIES: No known drug allergies. SOCIAL HISTORY: The patient is and lives with his family. Currently employed. He is a nonsmoker. FAMILY HISTORY: Positive for cancer and heart disease. REVIEW OF SYSTEMS: GENERAL: As per HPI most notably for profound weakness and fatigue as well as lightheadedness and dizziness leading up to admission. No fevers, chills, or sweats. He is maintaining his weight and appetite. SKIN: No rashes or lesions. No history of dermatosis. HEENT: He denies headaches. No visual or hearing deficits. No sinus symptoms, sore throat or dysphagia. LYMPH: No history of lymphoproliferative disease. CARDIAC: Negative for coronary artery disease. No current angina or palpitations. PULMONARY: Negative for COPD. No shortness of breath, dyspnea or orthopnea. No cough or hemoptysis. GASTROINTESTINAL: Negative for abdominal pain, nausea, vomiting, diarrhea or constipation, hematochezia or melenic stools. GENITOURINARY: Positive for gross hematuria. MUSCULOSKELETAL: Positive for previous ureteral stenting. ENDOCRINE: Negative for diabetes or thyroid disease. NEUROLOGIC: Negative for seizure, stroke, or migraine headache. HEMATOLOGIC: Positive for profound anemia secondary to genitourinary bleeding. PHYSICAL EXAMINATION: GENERAL: Froy is a very pleasant 81-year-old gentleman in no acute distress. VITAL SIGNS: Current temperature is 36.7, pulse 54, respiratory rate 16, blood pressure 111/50. SKIN: Warm, dry, noncyanotic without petechia, rash or ecchymosis. HEENT: Head atraumatic, normocephalic. Eyes PERRLA, EOMI. Sclerae nonicteric. No conjunctival discharge. Nares are patent without rhinorrhea or discharge. Throat is clear. Tongue is midline. Mucous membranes are moist. NECK: Supple without JVD or thyromegaly. LYMPH: No cervical, supraclavicular, or axillary palpable nodes. HEART: Regular rate and rhythm. No clicks, rubs, murmurs, or gallops. LUNGS: Clear to auscultation bilaterally. ABDOMEN: Soft, nontender, nondistended, without palpable hepatosplenomegaly. EXTREMITIES: No calf tenderness or swelling. No clubbing, cyanosis or edema. NEUROLOGICALLY: He is awake, alert and oriented x3. Cranial nerves II-XII are intact. No motor or sensory deficits are noted. LABORATORY DATA: Hemoglobin 7.7, hematocrit 23.2. Chemistries are not ordered today. Results from July 28 include sodium 137, potassium 4.2, chloride 106, carbon dioxide 23, creatinine 1.41, BUN 19, albumin 2.6. IMPRESSION: 1. Gross hematuria. 2. Profound blood loss anemia. 3. Metastatic prostate cancer. 4. Bladder cancer. 5. History of alcohol abuse. 6. Hypoalbuminemia. PLAN: I had the pleasure of visiting with Gilliam at bedside today. I briefly discussed his current clinical situation with active hematuria and the need for transfusional support. I agree with urology consult. There is some ambiguity regarding his status. The patient according to Dr. Valenzuela's most recent clinical note suggest that chemotherapy would no longer be of benefit and recommended Mr. Belcher to proceed with palliative approach. Mr. Belcher today wants to continue a "wait and see" approach. I will discuss this with Dr. Valenzuela and ensure Mr. Belcher is scheduled for an outpatient followup once he is discharged from the hospital. As for medical management at present, I agree with everything done at present. I have nothing further to add from a medical oncology standpoint and again will inform Dr. Valenzuela of his admission to hospital. I will continue to follow him periodically during his stay. If you have any questions or concerns that I have not answered, feel free to contact me at any time. MTDD
[2017-07-29 11:03] LABS: HEMATOCRIT 22.5 % (42-52); HEMOGLOBIN 7.6 g/dL (14.0-18.0)
--- NOTE | 2017-07-29 12:00 | NUR ---
Previous assessment unchanged. Patient sitting up in bed reading the newspaper. Patient denies any pain at this time. Villela remains patent, urine bloody, no clots seen at this time. HBG stable at 7.6. VS remain stable. IV patent. NSS @ 75 is infusing. Call olivo in reach. Patient denies any further needs. Will continue to monitor.
--- NOTE | 2017-07-29 13:00 | NUR ---
1st unit of blood infusing
--- NOTE | 2017-07-29 13:25 | Urology Consultation ---
History General Date of Service: Jul 29, 2017. Chief Complaint: gross hematuria Primary Care Physician: Crow Metcalf M.D. Pt seen a urologist before?: Yes (Dr. Peewee Loco ) If yes, why?: bladder cancer History of Present Illness 81 yo male with retroperitoneal adenopathy, indwelling stents, persistent gross hematuria, and urothelial CA invading the prostate. The pt presents to [facility], [place] with c/o gross hematuria. Noted to be anemic on arrival. He has received 2 units PRBCs. H&H now 7.6 and 22.5. Pt reports worsening of gross hematuria x 4 days. Barboza catheter currently in place currently draining merlot colored urine. Pt denies pain. CT scan from 07-15-17 showing progressive bilateral hydro with stents remaining in good position. Laboratory Last 24 Hours Test 07/28/17 22:09 07/28/17 22:21 07/28/17 22:26 07/29/17 06:29 White Blood Count 4.66 K/uL Red Blood Count 1.90 M/uL Hemoglobin 6.0 g/dL 7.7 g/dL Hematocrit 18.3 % 23.2 % Mean Corpuscular Volume 96.3 fL Mean Corpuscular Hemoglobin 31.6 pg Mean Corpuscular Hemoglobin Concent 32.8 g/dl Platelet Count 145 K/uL Mean Platelet Volume 10.7 fL Neutrophils (%) (Auto) 74.7 % Lymphocytes (%) (Auto) 16.1 % Monocytes (%) (Auto) 7.7 % Eosinophils (%) (Auto) 1.3 % Basophils (%) (Auto) 0.2 % Neutrophils # (Auto) 3.48 K/uL Lymphocytes # (Auto) 0.75 K/uL Monocytes # (Auto) 0.36 K/uL Eosinophils # (Auto) 0.06 K/uL Basophils # (Auto) 0.01 K/uL RDW Standard Deviation 56.0 fL RDW Coefficient of Variation 15.9 % Immature Granulocyte % (Auto) 0.0 % Immature Granulocyte # (Auto) 0.00 K/uL Red Blood Cell Morphology Unremarkable Prothrombin Time 11.0 SECONDS Prothromb Time International Ratio 1.0 Activated Partial Thromboplast Time 27.3 SECONDS Partial Thromboplastin Ratio 1.1 Sodium Level 137 mmol/L Potassium Level 4.2 mmol/L Chloride Level 106 mmol/L Carbon Dioxide Level 23 mmol/L Anion Gap 8.0 mmol/L 16.0 mmol/L Blood Urea Nitrogen 19 mg/dl Creatinine 1.41 mg/dl Est Creatinine Clear Calc Drug Dose 45.9 ml/min Estimated GFR () 54.1 Estimated GFR (Non- 46.7 BUN/Creatinine Ratio 13.7 Random Glucose 129 mg/dl Calcium Level 7.7 mg/dl Total Bilirubin 0.2 mg/dl Direct Bilirubin < 0.1 mg/dl Aspartate Amino Transf (AST/SGOT) 14 U/L Alanine Aminotransferase (ALT/SGPT) 9 U/L Alkaline Phosphatase 68 U/L Total Protein 5.4 gm/dl Albumin 2.6 gm/dl Bedside Hemoglobin 5.8 g/dl Bedside Hematocrit 17 % Bedside Sodium 137 mEq/L Bedside Potassium 4.2 mEq/L Bedside Chloride 104 mEq/L Bedside Total CO2 22 mEq/l Bedside Blood Urea Nitrogen 16 mg/dl Bedside Creatinine 1.5 mg/dl Bedside Glucose (other) 131 mg/dl Bedside Ionized Calcium ([place]) 1.08 mmol/l Urine Color RED Urine Appearance CLOUDY Urine pH Urine Specific [place] 1.027 Urine Protein POS Urine Glucose (UA) Urine Ketones Urine Occult Blood Urine Nitrite Urine Bilirubin Urine Urobilinogen Urine Leukocyte Esterase Urine RBC >30 /hpf Urine WBC 10-30 /hpf Urine Epithelial Cells 0-5 /lpf Urine Bacteria 1+ Test 07/29/17 10:51 Hemoglobin 7.6 g/dL Hematocrit 22.5 % Problem List Medical Problems: (1) Abnormal ECG Status: Acute (2) Acute urinary retention Status: Acute (3) Anemia Status: Acute (4) Anemia Status: Acute (5) Hematuria Status: Acute (6) Hemorrhage of urinary bladder wall Status: Acute (7) Hypotension Status: Acute (8) Urinary retention Status: Acute (9) Urinary tract infection Status: Acute Past History cancer (bladder), cancer - prostate, depression, GERD, high cholesterol, kidney stones, urinary tract infection, other Past Surgical History: ureteral stent, other (TURBT) Family History Cancer Heart disease Social History Hx Tobacco Use In Past Year?: No Smoking: quit greater than 1 year Alcohol: daily Marital status: Housing status: lives with family Occupation status: employed Immunizations History of Influenza Vaccine: Yes History of Tetanus Vaccine?: Yes History of Pneumococcal: Yes History of Hepatitis B Vaccine: No Allergies Coded Allergies: No Known Allergies (Unverified , 12/25/17) Medications Home Medications: Home Meds and Scripts Medications Dose Route/Sig Max Daily Dose Days Date Category Roxicodone Ir (Oxycodone HCl) 5 Mg Tab 5 Mg PO Q4H PRN 07/28/17 Reported Citalopram Hydrobromide (Citalopram) 20 Mg Tab 20 Mg PO DAILY 07/28/17 Reported Ditropan (Oxybutynin Chloride) 5 Mg Tab 5 Mg PO BID PRN 07/28/17 Reported Inderal (Propranolol HCl) 20 Mg Tab 20 Mg PO BID 07/28/17 Reported Flomax (Tamsulosin Hcl) 0.4 Mg Cap 0.4 Mg PO QAM 07/28/17 Reported Marinol (Dronabinol) 2.5 Mg Cap 2.5 Mg PO QAM 05/04/17 Reported Prilosec (Omeprazole) 20 Mg Capcr 20 Mg PO QAM 01/19/17 Reported Prednisone 5 Mg Tab 5 Mg PO QAM 01/18/15 Reported Inpatient Medications: Current Inpatient Medications Medications (Trade) Dose Ordered Sig/Ismael Route Start Time Stop Time Status Last Admin Dose Admin Sodium Chloride 1,000 ml @ 75 mls/hr [id number] IV 07/29/17 02:30 08/28/17 02:29 07/29/17 05:19 75 MLS/HR Acetaminophen (Tylenol Tab) 650 mg Q4H PRN PO 07/29/17 00:30 08/28/17 00:29 Al Hydrox/Mg Hydrox/Simethicone (Maalox Max Susp) 15 ml Q4H PRN PO 07/29/17 00:30 08/28/17 00:29 Magnesium Hydroxide (Milk Of Magnesia Susp) 30 ml Q12H PRN PO 07/29/17 00:30 08/28/17 00:29 Ondansetron HCl (Zofran Inj) 4 mg Q6H PRN IV 07/29/17 00:30 08/28/17 00:29 Nitroglycerin (Nitrostat Tab) 0.4 mg UD PRN SL 07/29/17 00:30 08/28/17 00:29 Polyethylene (Miralax Powder Packet) 17 gm DAILY PRN PO 07/29/17 00:30 08/28/17 00:29 Citalopram Hydrobromide (celeXA TAB) 20 mg DAILY PO 07/29/17 09:00 08/28/17 08:59 07/29/17 08:29 20 MG Dronabinol (Marinol Cap) 2.5 mg QAM PO 07/29/17 09:00 08/28/17 08:59 07/29/17 08:43 2.5 MG Oxybutynin Chloride (Ditropan Tab) 5 mg BID PRN PO 07/29/17 00:30 08/28/17 00:29 07/29/17 08:29 5 MG Oxycodone HCl (Roxicodone Immediate Rel Tab) 5 mg Q4H PRN PO 07/29/17 00:30 08/12/17 00:29 Prednisone (PredniSONE TAB) 5 mg QAM PO 07/29/17 09:00 08/28/17 08:59 07/29/17 08:29 5 MG Propranolol HCl (Inderal Tab) 20 mg BID PO 07/29/17 09:00 08/28/17 08:59 Tamsulosin HCl (Flomax Cap) 0.4 mg QAM PO 07/29/17 09:00 08/28/17 08:59 07/29/17 08:29 0.4 MG Pantoprazole Sodium (Protonix Tab) 40 mg QAM PO 07/29/17 09:00 08/28/17 08:59 07/29/17 08:30 40 MG Review of Systems Review of Systems Constitutional: No fever, No chills Eyes: No double vision Neurological: No dizzy Endocrine: No excessive thirst Gastrointestinal: No abdominal pain, No nausea, No vomiting Cardiovascular: No chest pain Respiratory: No shortness of breath Skin: No rash Musculoskeletal: + arthritis Male : + blood in urine Physical Exam Vital Signs: Vital Signs Past 12 Hours Date Time Temp Pulse Resp B/P (MAP) Pulse Ox O2 Delivery O2 Flow Rate FiO2 07/29/17 12:55 36.8 49 14 122/51 07/29/17 12:00 36.8 54 16 105/49 (67) 100 Room Air 07/29/17 12:00 100 Room Air 07/29/17 08:00 100 Room Air 07/29/17 08:00 36.8 51 16 134/53 (80) 100 Room Air 07/29/17 05:15 36.7 54 16 111/50 100 07/29/17 05:00 59 16 131/52 99 07/29/17 04:00 100 Room Air 07/29/17 04:00 36.8 58 20 128/62 (84) 100 Room Air 07/29/17 04:00 36.8 56 12 128/62 99 07/29/17 03:41 36.6 64 12 129/47 100 Room Air 07/29/17 03:30 36.7 57 17 117/55 97 07/29/17 03:15 36.7 57 18 127/59 100 07/29/17 03:10 36.7 55 16 120/56 100 07/29/17 02:00 36.6 56 18 113/55 100 07/29/17 01:30 36.7 58 16 132/65 100 07/29/17 01:30 36.7 55 20 132/65 99 Physical Exam: General Appearance: no apparent distress Eyes: bilateral eyes normal inspection ENT: hearing grossly normal Neck: no JVD Respiratory/Chest: no respiratory distress, no accessory muscle use Cardiovascular: no JVD Extremities: normal inspection Neurologic/Psychiatric: alert, normal mood/affect, oriented x 3 Skin: normal color Assessment & Plan Assessment & Plan A/P: Gross hematuria, urothelial carcinoma invading the prostate Will leave barboza catheter in place for now and have nursing staff irrigate barboza catheter qshift and PRN. Supportive management with transfusions PRN. Continue Flomax. The pt was seen and assessed with Dr. Loco this morning. attending: Patient seen in office last month, has been discussed with Dr. Valenzuela. Chemotherapy on hold as patient is felt to be poor candidate, also extremely unlikely to tolerate / survive cystoprostatectomy, also inappropriate in the context of metastatic malignancy. Stent remain in place to avoid renal failure and hydro, last resection was early Jun 2017 showing urothelial CA invading prostate (pT4a). Patient's aggressive bladder and progressive prostatic malignancy are not undergoing any active therapy at this time and therefore I would expect his issues with hematuria to worsen over time. An option might be to place bilateral percutaneous nephrostomy tubes to divert the urinary stream allowing the ureteral stents to be removed and minimizing the consequences of his persistent bladder bleeding, but it is not clear how well this would be tolerated from a QOL perspective. Continue supportive management, irrigate barboza as needed.
--- NOTE | 2017-07-29 13:44 | NUR ---
case management note. social service for D/C planning. met with pt at bedside. pt is A&O and states he lives with his in a 1 story house with 2 RUBÉN. he states he is independent with ambulation and ADL's and drives. he does not have any oxygen. he states he was active with [facility] since May when his chemo was stopped. he states they told him they would have to stop services due to this hospital admission. role of field nurse case manager explained. pt states he would like to return home at D/C and continue services with [facility]. with permission referral completed to [facility] and sales assistant displays to fax information. case management to follow
--- NOTE | 2017-07-29 14:44 | NUR ---
Villela stopped draining. Bladder irrigation preformed. Clots removed. Villela now patent and draining dark bloody urine.
--- NOTE | 2017-07-29 15:00 | NUR ---
2nd unit of blood infusing/
[2017-07-29] MEDS: OXYCODONE HCL IR 5 MG TAB (IMMEDIATE RELEASE) PO PRN ×2 (15:50→19:51)
--- NOTE | 2017-07-29 16:00 | NUR ---
Previous assessment unchanged unless noted. Patient resting in bed with family at bedside. Patient c/o bladder pain/spasms. Villela patent and draining bloody urine. Patient describes this pain as a 7/10. Pain med given per order. MD aware of pain med not working, and described the pain as a spasm. MD noted, awaiting new orders. Patient c/o some nausea with the spasms. Zofran given. 2nd unit of blood finishing up. No s/s of infusion reaction. Orders to get another hbg in one hour. Patient resting in bed. VS remain stable. Will continue to monitor.
[2017-07-29] MEDS ORDERED: OXYBUTYNIN CHLORIDE 5 MG TAB PO ONE (16:49)
--- NOTE | 2017-07-29 17:46 | NUR ---
Report called to receiving nurse. Patient transferred to room 408 with all belongings. Patient at bedside. VS stable.
[2017-07-29 18:08] LABS: HEMATOCRIT 28.7 % (42-52); HEMOGLOBIN 9.7 g/dL (14.0-18.0)
[2017-07-29] MEDS ORDERED: HYDROmorphone INJ 0.5 MG/0.5 ML SYR IV STA (18:14)
--- NOTE | 2017-07-29 18:30 | NUR ---
A: Patient c/o severe right sided abdominal pain. New orders received for Dilaudid IV. Villela catheter irrigated for small clots. Villela patent at this time draining hematuria. Patient agrees to ring call olivo for assist as needed.
[2017-07-29] MEDS: HYDROmorphone INJ 0.5 MG/0.5 ML SYR IV PRN (20:42)
[2017-07-29 23:32] LABS: HEMATOCRIT 29.6 % (42-52)
[2017-07-30] VITALS (11 sets, daily range): BP systolic 94–121; BP diastolic 54–68; PULSE 54–72; TEMP 36.8–38; O2SAT 91–97
--- NOTE | 2017-07-30 | NUR ---
ID: Pt alert and oriented x4, forgetful at times. Villela in place, patent and draining rankin red with small clots noted. IVF infusing as ordered. Assessment completed, pt does not complain of pain at this time. x1 assist with walker while OOB. VSS on RA. S/p 4 units of blood since admission. Villela irrigated as ordered. Call olivo left within reach. Bed alarm in place. Red socks and signage in place. Will continue to monitor.
[2017-07-30] MEDS: SODIUM CHLORIDE 0.9% 1000ML 1,000 ML IV SCH ×2 (05:32→18:52)
[2017-07-30 05:53] LABS: BASO % 0.1 %; BASO ABS # 0.01 K/uL (0-0.2); HEMATOCRIT 31.2 % (42-52); HEMOGLOBIN 10.6 g/dL (14.0-18.0); IG# 0.02 K/uL (0.00-0.02); LYMPH % 4.4 %; LYMPH ABS # 0.45 K/uL (1.2-3.4); MEAN CELL VOLUME 93.1 fL (80-100); MEAN CORPUSCULAR HEMOGLOBIN 31.6 pg (25-34); MEAN PLATELET VOLUME 10.7 fL (7.4-10.4); MONO % 8.6 %; MONO ABS # 0.89 K/uL (0.11-0.59); NEUT % 86.7 %; NEUT ABS # 8.95 K/uL (1.4-6.5); PLATELET COUNT 145 K/uL (130-400); RED CELL DISTRIBUTION WIDTH CV 16.9 % (11.5-14.5); RED CELL DISTRIBUTION WIDTH SD 57.1 fL (36.4-46.3); WHITE BLOOD COUNT 10.32 K/uL (4.8-10.8)
[2017-07-30 06:30] LABS: CREATININE 1.56 mg/dl (0.60-1.40); POTASSIUM 4.7 mmol/L (3.5-5.1)
--- NOTE | 2017-07-30 07:48 | NUR ---
case management note. pt lives at home with his . He was receiving hospice care with [facility] prior to admission and was revoked due to admission. pt plans to return home and continue with [facility] after D/C. referral sent yesterday. pt transferred to med surg room 408. report to unit employment case manager. appropriate employment case manager to follow.
[2017-07-30] MEDS: CITALOPRAM 20 MG TAB PO SCH (08:12)
[2017-07-30] MEDS: PROPRANOLOL HCL 20 MG TAB PO SCH ×2 (08:12→20:51)
[2017-07-30] MEDS: TAMSULOSIN HCL 0.4 MG CAP PO SCH (08:13)
[2017-07-30] MEDS: DRONABINOL 2.5 MG CAP PO SCH (08:15)
[2017-07-30] MEDS: PANTOprazole SOD 40 MG TAB PO SCH (08:37)
[2017-07-30] MEDS: ACETAMINOPHEN 325 MG TAB PO PRN ×2 (08:37→23:42)
[2017-07-30] MEDS: OXYBUTYNIN CHLORIDE 5 MG TAB PO PRN ×2 (08:38→20:51)
--- NOTE | 2017-07-30 09:19 | Progress Note ---
Subjective Date of Service: Jul 30, 2017. Subjective Pt evaluation today including: conversation w/ patient, chart review, lab review Voiding: barboza catheter in place (patent, draining drak Merlot colored urine) 81 yo male with urothelial carcinoma invading the prostate and gross hematuria. Pt continues to have dark merlot colored urine. Minimal clot. H&H 10.6 and 31.2 this morning after receiving 4 units of PRBCs this admission. Pt c/o some slight bladder discomfort, but otherwise feels well. Cr increased slightly to 1.56. Problem List Medical Problems: (1) Abnormal ECG Status: Acute (2) Acute urinary retention Status: Acute (3) Anemia Status: Acute (4) Anemia Status: Acute (5) Hematuria Status: Acute (6) Hemorrhage of urinary bladder wall Status: Acute (7) Hypotension Status: Acute (8) Urinary retention Status: Acute (9) Urinary tract infection Status: Acute Review of Systems Constitutional: No fever, No chills Respiratory: No shortness of breath Cardiac: No chest pain Abdomen: No pain, No nausea, No vomiting Male : + hematuria Heme: + abnormal bleeding/bruising Objective Vital Signs Date Time Temp Pulse Resp B/P (MAP) Pulse Ox O2 Delivery O2 Flow Rate FiO2 07/30/17 08:00 92 Room Air 07/30/17 07:34 37.9 64 18 119/66 (83) 92 Room Air 07/30/17 04:00 36.9 58 20 120/66 (84) 94 Room Air 07/30/17 00:00 97 Room Air 07/29/17 23:58 36.9 56 20 130/72 (91) 97 Room Air 07/29/17 19:44 37.1 60 18 169/80 (109) 97 Room Air 07/29/17 19:00 97 Room Air 07/29/17 18:32 36.8 62 20 163/80 (107) 97 Room Air 07/29/17 17:34 36.8 60 17 100 07/29/17 17:00 36.8 60 17 143/67 100 07/29/17 16:30 36.8 59 14 141/66 100 07/29/17 16:01 100 Room Air 07/29/17 16:01 36.8 54 16 142/62 (88) 100 Room Air 07/29/17 16:00 36.8 57 18 142/64 100 07/29/17 16:00 36.7 57 18 142/62 100 07/29/17 15:30 37.0 50 16 112/55 100 07/29/17 15:15 36.9 57 15 113/56 100 07/29/17 14:59 36.9 55 16 131/61 100 07/29/17 14:30 36.8 60 18 109/43 100 07/29/17 14:30 36.8 50 16 109/43 100 07/29/17 14:00 36.8 51 14 110/56 100 07/29/17 13:30 36.7 53 18 130/60 100 07/29/17 13:15 36.7 62 16 129/42 100 07/29/17 12:55 36.8 49 14 122/51 07/29/17 12:00 36.8 54 16 105/49 (67) 100 Room Air 07/29/17 12:00 100 Room Air Physical Exam General Appearance: no apparent distress Eyes: normal inspection ENT: hearing grossly normal Neck: no JVD Respiratory/Chest: no respiratory distress, no accessory muscle use Cardiovascular: no JVD Extremities: normal inspection Neurologic/Psychiatric: alert, normal mood/affect, oriented x 3 Skin: normal color Laboratory Results Last 24 Hours Test 07/29/17 10:51 07/29/17 17:51 07/29/17 23:08 07/30/17 05:34 Hemoglobin 7.6 g/dL 9.7 g/dL 10.0 g/dL 10.6 g/dL Hematocrit 22.5 % 28.7 % 29.6 % 31.2 % White Blood Count 10.32 K/uL Red Blood Count 3.35 M/uL Mean Corpuscular Volume 93.1 fL Mean Corpuscular Hemoglobin 31.6 pg Mean Corpuscular Hemoglobin Concent 34.0 g/dl Platelet Count 145 K/uL Mean Platelet Volume 10.7 fL Neutrophils (%) (Auto) 86.7 % Lymphocytes (%) (Auto) 4.4 % Monocytes (%) (Auto) 8.6 % Eosinophils (%) (Auto) 0.0 % Basophils (%) (Auto) 0.1 % Neutrophils # (Auto) 8.95 K/uL Lymphocytes # (Auto) 0.45 K/uL Monocytes # (Auto) 0.89 K/uL Eosinophils # (Auto) 0.00 K/uL Basophils # (Auto) 0.01 K/uL RDW Standard Deviation 57.1 fL RDW Coefficient of Variation 16.9 % Immature Granulocyte % (Auto) 0.2 % Immature Granulocyte # (Auto) 0.02 K/uL Sodium Level 139 mmol/L Potassium Level 4.7 mmol/L Chloride Level 109 mmol/L Carbon Dioxide Level 25 mmol/L Anion Gap 5.0 mmol/L Blood Urea Nitrogen 20 mg/dl Creatinine 1.56 mg/dl Est Creatinine Clear Calc Drug Dose 41.5 ml/min Estimated GFR () 47.9 Estimated GFR (Non- 41.3 BUN/Creatinine Ratio 13.0 Random Glucose 138 mg/dl Calcium Level 8.0 mg/dl Assessment and Plan A/P: Gross hematuria, urothelial carcinoma Pt noted to have a temperature of 37.9C. UC&S preliminarily growing staph. Consider starting abx such as Bactrim of cefuroxime. Hematuria persists. Will place a 24Fr 3-way barboza catheter this morning and start CBI. Continue hand irrigation qshift and PRN. Continue to monitor H&H. Supportive management with transfusions PRN. Slightly wrosening hydro on CT. May need to consider PCN placement in the future. Will continue to follow along with primary service at this time.
[2017-07-30] MEDS: HYDROmorphone INJ 0.5 MG/0.5 ML SYR IV PRN ×2 (09:25→16:44)
[2017-07-30] MEDS: SULFAMETHOXAZOLE/TRIMETHOPRIM 400/80MG TAB PO SCH (15:31)
[2017-07-30 16:16] LABS: HEMOGLOBIN 10.3 g/dL (14.0-18.0)
--- NOTE | 2017-07-30 17:13 | Family Medicine Progress Note ---
Progress Note Date of Service Jul 30, 2017. Subjective Pt evaluation today including: conversation w/ patient, conversation w/ family , physical exam, chart review, lab review, review of inpatient medication list Pain: declines pain at this time PO Intake: tolerating well Voiding: barboza catheter in place Patient is feeling well, encouraged by lightened color of hematuria. denies pain Constitutional: + fatigue Abdomen: No pain, No nausea, No vomiting, No diarrhea, No constipation, No GI bleeding, No problem reported Male : + hematuria, No dysuria, No urinary frequency, No incontinence, No nocturia more than once/night, No slowing stream, No sexual dysfunction, No problem reported All Other Systems: Reviewed and Negative Medications Current Inpatient Medications Medications (Trade) Dose Ordered Sig/Ismael Route Start Time Stop Time Status Last Admin Dose Admin Sodium Chloride 1,000 ml @ 75 mls/hr [id number] IV 07/29/17 02:30 08/28/17 02:29 07/30/17 18:52 75 MLS/HR Acetaminophen (Tylenol Tab) 650 mg Q4H PRN PO 07/29/17 00:30 08/28/17 00:29 07/30/17 08:37 650 MG Al Hydrox/Mg Hydrox/Simethicone (Maalox Max Susp) 15 ml Q4H PRN PO 07/29/17 00:30 08/28/17 00:29 Magnesium Hydroxide (Milk Of Magnesia Susp) 30 ml Q12H PRN PO 07/29/17 00:30 08/28/17 00:29 Ondansetron HCl (Zofran Inj) 4 mg Q6H PRN IV 07/29/17 00:30 08/28/17 00:29 07/29/17 15:02 4 MG Nitroglycerin (Nitrostat Tab) 0.4 mg UD PRN SL 07/29/17 00:30 08/28/17 00:29 Polyethylene (Miralax Powder Packet) 17 gm DAILY PRN PO 07/29/17 00:30 08/28/17 00:29 Citalopram Hydrobromide (celeXA TAB) 20 mg DAILY PO 07/29/17 09:00 08/28/17 08:59 07/30/17 08:12 20 MG Dronabinol (Marinol Cap) 2.5 mg QAM PO 07/29/17 09:00 08/28/17 08:59 07/30/17 08:15 2.5 MG Oxycodone HCl (Roxicodone Immediate Rel Tab) 5 mg Q4H PRN PO 07/29/17 00:30 08/12/17 00:29 07/29/17 19:51 5 MG Prednisone (PredniSONE TAB) 5 mg QAM PO 07/29/17 09:00 08/28/17 08:59 07/30/17 08:12 5 MG Propranolol HCl (Inderal Tab) 20 mg BID PO 07/29/17 09:00 08/28/17 08:59 07/30/17 20:51 20 MG Tamsulosin HCl (Flomax Cap) 0.4 mg QAM PO 07/29/17 09:00 08/28/17 08:59 07/30/17 08:13 0.4 MG Oxybutynin Chloride (Ditropan Tab) 10 mg BID PRN PO 07/30/17 08:00 08/28/17 00:29 07/30/17 20:51 10 MG Hydromorphone HCl (Dilaudid Inj) 0.5 mg Q2H PRN IV 07/29/17 18:15 08/12/17 18:14 07/30/17 16:44 0.5 MG Pantoprazole Sodium (Protonix Tab) 40 mg QAM PO 07/31/17 08:00 08/28/17 08:59 Trimethoprim/ Sulfamethoxazole (Septra 400/80MG Tab) 1 tab Q12H PO 07/30/17 15:00 08/09/17 14:59 07/30/17 15:31 1 TAB Objective Vital Signs Date Time Temp Pulse Resp B/P (MAP) Pulse Ox O2 Delivery O2 Flow Rate FiO2 07/30/17 19:23 37.2 07/30/17 19:22 38.0 64 18 107/61 (76) 95 Room Air 07/30/17 16:00 96 Room Air 07/30/17 15:29 36.9 54 18 109/62 (78) 96 Room Air 07/30/17 11:04 36.8 56 20 101/59 (73) 96 Room Air 07/30/17 09:30 37.1 07/30/17 08:00 92 Room Air 07/30/17 07:34 37.9 64 18 119/66 (83) 92 Room Air 07/30/17 04:00 36.9 58 20 120/66 (84) 94 Room Air 07/30/17 00:00 97 Room Air 07/29/17 23:58 36.9 56 20 130/72 (91) 97 Room Air Physical Exam General Appearance: WD/WN, no apparent distress Eyes: normal inspection, PERRL, EOMI, sclerae normal ENT: normal ENT inspection, hearing grossly normal Neck: supple, no JVD, no carotid bruits, trachea midline Respiratory/Chest: chest non-tender, lungs clear, normal breath sounds, no respiratory distress, no accessory muscle use Cardiovascular: regular rate, rhythm, no edema, no gallop, no JVD, no murmur Abdomen: normal bowel sounds, non tender, soft, no organomegaly, no pulsatile mass, + pertinent finding (3 way barboza in situ) Extremities: normal range of motion, no pedal edema, no calf tenderness Neurologic/Psychiatric: medical assembler II-XII nml as tested, no motor/sensory deficits, alert, normal mood/affect, oriented x 3 Skin: normal color, warm/dry, no rash Laboratory Results Last Resulted 07/30/17 05:34 Red Blood Count 3.35, Mean Corpuscular Volume 93.1, Mean Corpuscular Hemoglobin 31.6, Mean Corpuscular Hemoglobin Concent 34.0, Mean Platelet Volume 10.7, Neutrophils (%) (Auto) 86.7, Lymphocytes (%) (Auto) 4.4, Monocytes (%) (Auto) 8.6, Eosinophils (%) (Auto) 0.0, Basophils (%) (Auto) 0.1, Neutrophils # (Auto) 8.95, Lymphocytes # (Auto) 0.45, Monocytes # (Auto) 0.89, Eosinophils # (Auto) 0.00, Basophils # (Auto) 0.01 07/30/17 16:08 Last Resulted 07/30/17 05:34 Assessment and Plan This is an 81 y/o M PMH significant for metastatic prostate and bladder cancer on hospice who presents with worsening hematuria via indwelling catheter. Normocytic Acute Blood Loss Anemia 2/2 Hematuria in setting of metastatic prostate ca -Hgb has trended up from 5.8 to 7.6 to 10.3 with 4 units of irradiated prbcs -Repeat CBC/BMP in AM -Consulted Urology, appreciate recs: barboza irrigation, supportive transfusions prn, continue flomax Discussed extensively with patient and family that hematuria likely related to extensive cancer burden and unlikely to improve Talked with Dr. Loco, and discussed possibility of cauterization of bleeding lesions, likely needing to be performed q4-6 weeks Also discussed with patient different paths of therapy including recurrent blood transfusions, percutaneous nephrostomy tubes -Consulted oncology, appreciate recs -Daily CBCs -Discharge will be more difficult if he resumes clotting as continuous irrigation is discontinued Metastatic prostate ca. -On hospice, at home Extensive discussion with family as above -Continue with oncology -Continue tamsulosin 0.4, pain control (oxycodone 5), oxybutynin optimized to 10 mg BID -Continue prednisone 5, dronabinol 2.5 Suspected urinary tract infection, staph growth -Potentially colonization from barboza -Patient spiked fever, but otherwise asymptomatic -Will treat based on +culture and temp -Discussed with pharmacy, will go ahead with bactrim renal dosing and careful monitoring of K+ levels Tremors -Patient on propanlol 20, will continue to hold due to bradycardia h/o of alcohol abuse Reports no alcohol since last admission. DVT proph Chemical contraindicated, SCDs Code:Full Dispo: Med/surg; discharge uncertain at this time. ensure DC summary forwarded to Dr. Valenzuela, Tea, and Claudy per patient request Resident Physician Supervision Note: I interviewed and examined the patient. Discussed with Dr. Santiago and agree with findings and plan as documented in the note. Any exceptions or clarifications are listed here: None Documented By: Martín Weathers feeling ok w three way irrigation going. d/w urology - input appreciated. family present. extensive discussion with pt and them vitals noted nad breathing unlabored urine light pink now urinary tract cancer, hematuria, acute blood loss anemia, bladder obstruction -ongoing irrigation for now, hopefully he'll not clot up as he is weaned, if this continues to be a problem may need nephrostomy tubes vs comfort care; hopefully bleeding will slow - for now he would prefer a more aggressive route - would prefer vigilance on Hgb and prn transfusions, d/w urology regarding possible cautery if this might slow bleeding. dr loco noted he can discuss this with pt probable UTI - bactrim based on prior Cx DVT proph -pharmacologic obviously contraindicated due to bleeding Resident Tracking Resident Involvement: Resident Care Provided Care Provided: Adult [facility]
--- NOTE | 2017-07-31 01:23 | NUR ---
ID: Patient alert and oriented x 4. Confusion noted at times. CBI. Possibility of being d/c on hospice. See EMR for full head to toe assessment. director of professional services following. Will continue to monitor.
[2017-07-31 04:18] VITALS: BP 111/65; PULSE 66; TEMP 38.4; O2SAT 91
[2017-07-31] MEDS: ACETAMINOPHEN 325 MG TAB PO PRN (04:25)
[2017-07-31] MEDS: SULFAMETHOXAZOLE/TRIMETHOPRIM 400/80MG TAB PO SCH ×2 (04:25→15:57)
[2017-07-31 06:45] LABS: HEMATOCRIT 27.2 % (42-52); HEMOGLOBIN 9.1 g/dL (14.0-18.0); MEAN CELL VOLUME 93.2 fL (80-100); MEAN CORPUSCULAR HEMOGLOBIN 31.2 pg (25-34); MEAN CORPUSCULAR HGB CONC 33.5 g/dl (32-36); MEAN PLATELET VOLUME 10.3 fL (7.4-10.4); PLATELET COUNT 119 K/uL (130-400); RED CELL DISTRIBUTION WIDTH CV 16.5 % (11.5-14.5); WHITE BLOOD COUNT 8.87 K/uL (4.8-10.8)
[2017-07-31 07:21] LABS: CALCIUM 7.7 mg/dl (8.5-10.1); CREATININE 1.71 mg/dl (0.60-1.40); POTASSIUM 4.2 mmol/L (3.5-5.1)
[2017-07-31 07:29] LABS: BASO % 0.1 %; BASO ABS # 0.01 K/uL (0-0.2); IG# 0.02 K/uL (0.00-0.02); LYMPH % 3.2 %; LYMPH ABS # 0.28 K/uL (1.2-3.4); MONO % 8.2 %; MONO ABS # 0.73 K/uL (0.11-0.59); NEUT % 88.3 %; NEUT ABS # 7.83 K/uL (1.4-6.5)
[2017-07-31] MEDS: PANTOprazole SOD 40 MG TAB PO SCH (08:00)
[2017-07-31] MEDS: PROPRANOLOL HCL 20 MG TAB PO SCH ×2 (08:00→20:00)
[2017-07-31] MEDS: CITALOPRAM 20 MG TAB PO SCH (08:00)
[2017-07-31] MEDS: TAMSULOSIN HCL 0.4 MG CAP PO SCH (08:00)
[2017-07-31] MEDS: SODIUM CHLORIDE 0.9% 1000ML 1,000 ML IV SCH ×2 (08:01→21:21)
[2017-07-31] MEDS: DRONABINOL 2.5 MG CAP PO SCH (08:04)
[2017-07-31 08:19] VITALS: BP_SYST 86; BP_SYST 92; BP_SYST 93; BP_DIAS 40; BP_DIAS 49; BP_DIAS 50; PULSE 62; TEMP 37.5; O2SAT 91
[2017-07-31 11:18] VITALS: BP 90/43; PULSE 81; TEMP 37; O2SAT 91
--- NOTE | 2017-07-31 12:09 | Family Medicine Progress Note ---
Progress Note Date of Service Jul 31, 2017. Subjective Pt evaluation today including: conversation w/ patient (pt feeling relatively well today, has no complaints of pain or difficulty breathing. Reports that he is not chronically catheterized, although self monitors amount of clots in his urine grossly, and seeks catheterization at [facility] when blockage apparent. Also has needed several transfusions this year for severe anemia. Desires to go home. Family in the room.), conversation w/ family (Conversation with daughter who is an oncology PA and her mother (pt's daughter) pleasant- mainly they have questions regarding whether or not a cystoscopy will be done. They also wonder if hospice will allow transfusions, and think that lab checks and transfusions may be a good option to keep pt out of hospital. Seem to have realistic expectations regarding no further chemotherapy for pt. ), chart review , lab review Voiding: barboza catheter in place (light pink urine, no clots grossly evident upon my inspection this morning.) Respiratory: + see HPI, No shortness of breath Cardiovascular: + see HPI, No chest pain Abdomen: + see HPI, No pain Medications Current Inpatient Medications Medications (Trade) Dose Ordered Sig/Ismael Route Start Time Stop Time Status Last Admin Dose Admin Sodium Chloride 1,000 ml @ 75 mls/hr [id number] IV 07/29/17 02:30 08/28/17 02:29 07/31/17 08:01 75 MLS/HR Acetaminophen (Tylenol Tab) 650 mg Q4H PRN PO 07/29/17 00:30 08/28/17 00:29 07/31/17 04:25 650 MG Al Hydrox/Mg Hydrox/Simethicone (Maalox Max Susp) 15 ml Q4H PRN PO 07/29/17 00:30 08/28/17 00:29 Magnesium Hydroxide (Milk Of Magnesia Susp) 30 ml Q12H PRN PO 07/29/17 00:30 08/28/17 00:29 Ondansetron HCl (Zofran Inj) 4 mg Q6H PRN IV 07/29/17 00:30 18 00:29 07/29/17 15:02 4 MG Nitroglycerin (Nitrostat Tab) 0.4 mg UD PRN SL 07/29/17 00:30 08/28/17 00:29 Polyethylene (Miralax Powder Packet) 17 gm DAILY PRN PO 07/29/17 00:30 08/28/17 00:29 Citalopram Hydrobromide (celeXA TAB) 20 mg DAILY PO 07/29/17 09:00 08/28/17 08:59 07/31/17 08:00 20 MG Dronabinol (Marinol Cap) 2.5 mg QAM PO 07/29/17 09:00 08/28/17 08:59 07/31/17 08:04 2.5 MG Oxycodone HCl (Roxicodone Immediate Rel Tab) 5 mg Q4H PRN PO 07/29/17 00:30 08/12/17 00:29 07/29/17 19:51 5 MG Prednisone (PredniSONE TAB) 5 mg QAM PO 07/29/17 09:00 08/28/17 08:59 07/31/17 08:00 5 MG Propranolol HCl (Inderal Tab) 20 mg BID PO 07/29/17 09:00 08/28/17 08:59 07/30/17 20:51 20 MG Tamsulosin HCl (Flomax Cap) 0.4 mg QAM PO 07/29/17 09:00 08/28/17 08:59 07/31/17 08:00 0.4 MG Oxybutynin Chloride (Ditropan Tab) 10 mg BID PRN PO 07/30/17 08:00 08/28/17 00:29 07/30/17 20:51 10 MG Hydromorphone HCl (Dilaudid Inj) 0.5 mg Q2H PRN IV 07/29/17 18:15 08/12/17 18:14 07/30/17 16:44 0.5 MG Pantoprazole Sodium (Protonix Tab) 40 mg QAM PO 07/31/17 08:00 08/28/17 08:59 07/31/17 08:00 40 MG Trimethoprim/ Sulfamethoxazole (Septra 400/80MG Tab) 1 tab Q12H PO 07/30/17 15:00 08/09/17 14:59 07/31/17 04:25 1 TAB Objective Physical Exam General Appearance: WD/WN, no apparent distress, + thin Eyes: normal inspection ENT: hearing grossly normal Respiratory/Chest: lungs clear, normal breath sounds, no respiratory distress Cardiovascular: regular rate, rhythm, no gallop, no murmur Abdomen: normal bowel sounds, non tender, soft Extremities: normal inspection, no pedal edema Neurologic/Psychiatric: alert, normal mood/affect, oriented x 3 Skin: + pallor Laboratory Results 07/31/17 06:00 Red Blood Count 2.92, Mean Corpuscular Volume 93.2, Mean Corpuscular Hemoglobin 31.2, Mean Corpuscular Hemoglobin Concent 33.5, Mean Platelet Volume 10.3, Neutrophils (%) (Auto) 88.3, Lymphocytes (%) (Auto) 3.2, Monocytes (%) (Auto) 8.2, Eosinophils (%) (Auto) 0.0, Basophils (%) (Auto) 0.1, Neutrophils # (Auto) 7.83, Lymphocytes # (Auto) 0.28, Monocytes # (Auto) 0.73, Eosinophils # (Auto) 0.00, Basophils # (Auto) 0.01 07/31/17 10:54 07/31/17 06:00 Test 07/31/17 06:00 White Blood Count 8.87 K/uL (4.8-10.8) Red Blood Count 2.92 M/uL (4.7-6.1) Hemoglobin 9.1 g/dL (14.0-18.0) Hematocrit 27.2 % (42-52) Mean Corpuscular Volume 93.2 fL (80-100) Mean Corpuscular Hemoglobin 31.2 pg (25-34) Mean Corpuscular Hemoglobin Concent 33.5 g/dl (32-36) Platelet Count 119 K/uL (130-400) Mean Platelet Volume 10.3 fL (7.4-10.4) Neutrophils (%) (Auto) 88.3 % Lymphocytes (%) (Auto) 3.2 % Monocytes (%) (Auto) 8.2 % Eosinophils (%) (Auto) 0.0 % Basophils (%) (Auto) 0.1 % Neutrophils # (Auto) 7.83 K/uL (1.4-6.5) Lymphocytes # (Auto) 0.28 K/uL (1.2-3.4) Monocytes # (Auto) 0.73 K/uL (0.11-0.59) Eosinophils # (Auto) 0.00 K/uL (0-0.5) Basophils # (Auto) 0.01 K/uL (0-0.2) RDW Standard Deviation 56.0 fL (36.4-46.3) RDW Coefficient of Variation 16.5 % (11.5-14.5) Immature Granulocyte % (Auto) 0.2 % Immature Granulocyte # (Auto) 0.02 K/uL (0.00-0.02) Anion Gap 5.0 mmol/L (3-11) Est Creatinine Clear Calc Drug Dose 37.8 ml/min Estimated GFR () 42.9 Estimated GFR (Non- 37.0 BUN/Creatinine Ratio 14.6 (10-20) Calcium Level 7.7 mg/dl (8.5-10.1) Assessment and Plan This is an 81 y/o M PMH significant for metastatic prostate and bladder cancer on hospice who presents with worsening hematuria via indwelling catheter. Normocytic Acute Blood Loss Anemia 2/2 Hematuria in setting of metastatic prostate ca - Hgb has trended up from 5.8 to 7.6 to 10.3 with 4 units of irradiated prbcs - today 07/31 Hgb down to 8.4. Pt reports no s/s anemia.May need additional transfusion before DC. Will recheck Hgb at 1500, if <8.4 will transfuse 2 units. - Week team discussed extensively with patient and family that hematuria likely related to extensive cancer burden and unlikely to improve, per Dr. Loco - possibility of cauterization of bleeding lesions, likely needing to be performed q4-6 weeks. Also different paths of therapy including recurrent blood transfusions, percutaneous nephrostomy tubes have been discussed with patient. Waiting to hear from Uro how feasible this will be, as pt desires to go home today. - Consulted oncology, appreciate recs - Daily CBCs - Discharge will be more difficult if he resumes clotting as continuous irrigation is discontinued - will trial turning off irrigation today, if tolerates, makes dc more favorable , can do barboza at home with manual irrigation. Follow. Hyponatremia - Yesterday 139, today 132. Is on IVF NaCl 75mls/hour since 07/29. Likely dilutional component from bladder irrigation. Follow. 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 h/o of alcohol abuse Reports no alcohol since last admission. DVT proph Chemical contraindicated, SCDs Code:Full Dispo: Med/surg; discharge uncertain at this time. ensure DC summary forwarded to Dr. Valenzuela, Tea, and Claudy per patient request Resident Physician Supervision Note: I interviewed and examined the patient. Discussed with Dr. Olmos and agree with findings and plan as documented in the note. Any exceptions or clarifications are listed here: None Documented By: Martín Weathers feeling ok discussed bladder obstruction and alleviation w irrigation. discussed ongoing drop in Hgb discussed [facility] [place] present and appreciated planning and discussions extensive discussions undertaken vitals noted nad breathing unlabored no pallor or icterus urinary tract cancers - cause of bleeding, bleeding is cause of obstruction. cancers past the point of viable treatment per oncology. -anemia: goal is for now to follow and have prn transfusions because he notes that he has good quality of life still. once clear that he's stable enough, this can be done as outpt through his PCP (Dr Metcalf, [facility]) --> but for now Hgb seems to be going down still, may still need transfused today -urinary obstruction: goal is barboza drainage and manual irrigation without painful bladder obstruction - turn off CBI for now, follow, train family in manual irrigation ----> if does well w Hgb and urinary drainage, then home. if obstructs or continues to bleed, reconsult urology re ?cautery to temporize the situation, or other measures? otherwise as above Continued [facility] stay due to: voiding difficulties Discharge planning: home with Hospice Resident Tracking Resident Involvement: Resident Care Provided Care Provided: Adult Hospital Medicine
--- NOTE | 2017-07-31 16:01 | Progress Note ---
Subjective Date of Service: Jul 31, 2017. Subjective Pt evaluation today including: conversation w/ patient, conversation w/ family , physical exam, chart review, lab review, review of inpatient medication list Pain: Denies PO Intake: Abner PO Voiding: barboza catheter in place (light rankin urine with slow CBI, clears immediately with flow) 81 yo male with anemia, improved hematuria, pT4a urothelial CA and metastatic CAP admitted for anemia and weakness. He has received 4 U PRBC, Hb being monitored, feels better than admission. Family in room today. Hb drifting back down, Cr noted to be up somewhat. No other new events. Renal US noted - renal fullness, ? clot in bladder. Problem List Medical Problems: (1) Abnormal ECG Status: Acute (2) Acute urinary retention Status: Acute (3) Anemia Status: Acute (4) Anemia Status: Acute (5) Hematuria Status: Acute (6) Hemorrhage of urinary bladder wall Status: Acute (7) Hypotension Status: Acute (8) Urinary retention Status: Acute (9) Urinary tract infection Status: Acute Review of Systems Constitutional: + weight loss, + weakness, No fever, No chills Eyes: No worsening of vision ENT: No hearing loss, No unusual epistaxis Respiratory: No wheezing Cardiac: No chest pain Abdomen: No nausea, No vomiting Male : + see HPI, + hematuria Neurologic: + weakness, No memory loss Psychiatric: No depression symptoms Heme: + abnormal bleeding/bruising Endo: + fatigue Objective Vital Signs Date Time Temp Pulse Resp B/P (MAP) Pulse Ox O2 Delivery O2 Flow Rate FiO2 07/31/17 11:18 37.0 81 18 90/43 (59) 91 Room Air 07/31/17 08:19 37.5 62 17 92/49 (63) 91 Room Air 86/40 (55) 93/50 (64) 07/31/17 08:00 Room Air 07/31/17 04:18 38.4 66 20 111/65 (80) 91 Room Air 07/31/17 00:00 Room Air 07/30/17 23:34 37.8 68 20 121/68 (85) 91 Room Air 71 94/54 (67) 72 95/61 (72) 07/30/17 19:23 37.2 07/30/17 19:22 38.0 64 18 107/61 (76) 95 Room Air 07/30/17 16:00 96 Room Air Physical Exam General Appearance: no apparent distress, + thin Eyes: normal inspection ENT: hearing grossly normal Neck: supple, no adenopathy Respiratory/Chest: no respiratory distress, no accessory muscle use Cardiovascular: no JVD Abdomen: non tender, soft Neurologic/Psychiatric: alert Skin: + pallor Laboratory Results Last 24 Hours Test 07/30/17 16:08 07/31/17 06:00 07/31/17 10:54 07/31/17 15:00 Hemoglobin 10.3 g/dL 9.1 g/dL 8.4 g/dL 8.5 g/dL Hematocrit 30.0 % 27.2 % White Blood Count 8.87 K/uL Red Blood Count 2.92 M/uL Mean Corpuscular Volume 93.2 fL Mean Corpuscular Hemoglobin 31.2 pg Mean Corpuscular Hemoglobin Concent 33.5 g/dl Platelet Count 119 K/uL Mean Platelet Volume 10.3 fL Neutrophils (%) (Auto) 88.3 % Lymphocytes (%) (Auto) 3.2 % Monocytes (%) (Auto) 8.2 % Eosinophils (%) (Auto) 0.0 % Basophils (%) (Auto) 0.1 % Neutrophils # (Auto) 7.83 K/uL Lymphocytes # (Auto) 0.28 K/uL Monocytes # (Auto) 0.73 K/uL Eosinophils # (Auto) 0.00 K/uL Basophils # (Auto) 0.01 K/uL RDW Standard Deviation 56.0 fL RDW Coefficient of Variation 16.5 % Immature Granulocyte % (Auto) 0.2 % Immature Granulocyte # (Auto) 0.02 K/uL Sodium Level 132 mmol/L Potassium Level 4.2 mmol/L Chloride Level 103 mmol/L Carbon Dioxide Level 24 mmol/L Anion Gap 5.0 mmol/L Blood Urea Nitrogen 25 mg/dl Creatinine 1.71 mg/dl Est Creatinine Clear Calc Drug Dose 37.8 ml/min Estimated GFR () 42.9 Estimated GFR (Non- 37.0 BUN/Creatinine Ratio 14.6 Random Glucose 104 mg/dl Calcium Level 7.7 mg/dl Assessment and Plan A/P 81 yo male with anemia, hematuria, metastatic CAP and prostate invasive bladder cancer. Findings reviewed with patient and family. At this point the focus of his care is palliative. No further chemotherapy is planned. options reviewed - 1) Continue large bore barboza, monitor hematuria and Hb for stability. 2) Cystoscopy and fulguration, which will not alter the course of his malignancy and would need to be repeated regularly. 3) Conversion to bilateral nephrostomy tubes with removal of stents and barboza. None of these would carry curative intent and they all have their shortcomings. Patient and family will consider. Hb check and transfusion per primary team. Continue barboza for now. Continued [facility] stay due to: voiding difficulties Discharge planning: home with Hospice
[2017-07-31 16:06] VITALS: BP_SYST 88; BP_SYST 92; BP_SYST 98; BP_DIAS 42; BP_DIAS 50; BP_DIAS 57; PULSE 64; TEMP 37.2; O2SAT 93
[2017-07-31 20:08] VITALS: BP_SYST 103; BP_SYST 108; BP_SYST 111; BP_DIAS 50; BP_DIAS 53; BP_DIAS 57; PULSE 67; TEMP 36.9; O2SAT 94
[2017-07-31 23:55] VITALS: BP 111/55; PULSE 65; TEMP 36.7; O2SAT 93
[2017-08-01] VITALS (12 sets, daily range): BP systolic 103–138; BP diastolic 48–77; PULSE 53–73; TEMP 37–37.6; O2SAT 92–99
[2017-08-01] MEDS: SULFAMETHOXAZOLE/TRIMETHOPRIM 400/80MG TAB PO SCH ×2 (01:59→16:53)
[2017-08-01 06:34] LABS: HEMATOCRIT 24.7 % (42-52); HEMOGLOBIN 8.2 g/dL (14.0-18.0); MEAN CELL VOLUME 92.9 fL (80-100); MEAN CORPUSCULAR HEMOGLOBIN 30.8 pg (25-34); MEAN CORPUSCULAR HGB CONC 33.2 g/dl (32-36); MEAN PLATELET VOLUME 10.6 fL (7.4-10.4); PLATELET COUNT 117 K/uL (130-400); RED CELL DISTRIBUTION WIDTH SD 54.4 fL (36.4-46.3); WHITE BLOOD COUNT 7.91 K/uL (4.8-10.8)
[2017-08-01 07:03] LABS: CALCIUM 7.5 mg/dl (8.5-10.1); CREATININE 1.67 mg/dl (0.60-1.40); POTASSIUM 3.9 mmol/L (3.5-5.1)
[2017-08-01] MEDS: PANTOprazole SOD 40 MG TAB PO SCH (07:46)
[2017-08-01] MEDS: PROPRANOLOL HCL 20 MG TAB PO SCH (07:46)
[2017-08-01] MEDS: CITALOPRAM 20 MG TAB PO SCH (07:46)
[2017-08-01] MEDS: TAMSULOSIN HCL 0.4 MG CAP PO SCH (07:47)
[2017-08-01] MEDS: DRONABINOL 2.5 MG CAP PO SCH (08:01)
[2017-08-01] MEDS: SODIUM CHLORIDE 0.9% 1000ML 1,000 ML IV SCH (10:40)
--- NOTE | 2017-08-01 11:22 | Progress Note ---
Subjective Date of Service: Aug 01, 2017. Subjective Pt evaluation today including: conversation w/ patient, physical exam, chart review, lab review, review of inpatient medication list Pain: Denies PO Intake: Abner reg diet Voiding: barboza catheter in place (light clear burgandy urine) 81 yo male with anemia, hematuria, metastatic CAP and pT4a bladder cancer s/p transfusion. He has received 4 U PRBC total, Hb relatively stable since yesterday. Barboza remains in place with minimal CBI, fairly well tolerated. Problem List Medical Problems: (1) Abnormal ECG Status: Acute (2) Acute urinary retention Status: Acute (3) Anemia Status: Acute (4) Anemia Status: Acute (5) Hematuria Status: Acute (6) Hemorrhage of urinary bladder wall Status: Acute (7) Hypotension Status: Acute (8) Urinary retention Status: Acute (9) Urinary tract infection Status: Acute Review of Systems Constitutional: No fever, No chills Eyes: No worsening of vision ENT: No hearing loss Cardiac: No chest pain Abdomen: No nausea, No vomiting, No diarrhea Male : + hematuria Neurologic: No memory loss, No paralysis Psychiatric: No depression symptoms Heme: + abnormal bleeding/bruising Skin: No new/changing skin lesions, No color change Objective Vital Signs Date Time Temp Pulse Resp B/P (MAP) Pulse Ox O2 Delivery O2 Flow Rate FiO2 08/01/17 08:30 96 Room Air 08/01/17 08:00 37.5 70 20 138/77 (97) 96 Room Air 08/01/17 04:23 37.6 69 18 118/64 (82) 92 Room Air 08/01/17 00:00 Room Air 07/31/17 23:55 36.7 65 18 111/55 (73) 93 Room Air 07/31/17 20:08 36.9 67 18 108/57 (74) 94 Room Air 103/50 (67) 111/53 (72) 07/31/17 16:06 37.2 64 17 92/50 (64) 93 Room Air 88/42 (57) 98/57 (71) 07/31/17 16:00 Room Air 07/31/17 11:18 37.0 81 18 90/43 (59) 91 Room Air Physical Exam General Appearance: + mild distress, + thin ENT: normal ENT inspection, hearing grossly normal Neck: supple, no adenopathy Respiratory/Chest: no respiratory distress, no accessory muscle use Cardiovascular: no JVD Abdomen: non tender, soft Neurologic/Psychiatric: alert, oriented x 3 Skin: normal color Laboratory Results Last 24 Hours Test 07/31/17 15:00 08/01/17 06:02 Hemoglobin 8.5 g/dL 8.2 g/dL White Blood Count 7.91 K/uL Red Blood Count 2.66 M/uL Hematocrit 24.7 % Mean Corpuscular Volume 92.9 fL Mean Corpuscular Hemoglobin 30.8 pg Mean Corpuscular Hemoglobin Concent 33.2 g/dl RDW Standard Deviation 54.4 fL RDW Coefficient of Variation 16.0 % Platelet Count 117 K/uL Mean Platelet Volume 10.6 fL Sodium Level 132 mmol/L Potassium Level 3.9 mmol/L Chloride Level 104 mmol/L Carbon Dioxide Level 21 mmol/L Anion Gap 7.0 mmol/L Blood Urea Nitrogen 23 mg/dl Creatinine 1.67 mg/dl Est Creatinine Clear Calc Drug Dose 38.7 ml/min Estimated GFR () 44.1 Estimated GFR (Non- 38.1 BUN/Creatinine Ratio 13.7 Random Glucose 118 mg/dl Calcium Level 7.5 mg/dl Assessment and Plan A/P 81 yo male with anemia, hematuria, metastatic CAP and prostate invasive bladder cancer. Findings reviewed with patient again. He reports he wishes to take thing "one step at a time" and is anxious to head home. From a perspective I think it would be reasonable to try to send him home with the barboza in place. Care discussed with med onc and primary service today regarding the patient's decision about his level of care and appropriate palliative measures, eg the need for repeat transfusion. Again, at this point the focus of his care is palliative. No further chemotherapy is planned. options again reviewed - 1) Continue large bore barboza, monitor hematuria and outpatient follow-up. 2) Cystoscopy and fulguration, which will not alter the course of his malignancy and would need to be repeated regularly. 3) Conversion to bilateral nephrostomy tubes with removal of stents and barboza. None of these would carry curative intent and they all have their shortcomings. Continue barboza on discharge, due to see myself Aug 16 as outpatient at 10:20 AM. Patient aware of appointment. Continued [facility] stay due to: voiding difficulties Discharge planning: home with Hospice
[2017-08-01 12:34] LABS: HEMATOCRIT 23.8 % (42-52)
--- NOTE | 2017-08-01 14:14 | Discharge Instructions ---
Discharge Instructions Date of Service Aug 01, 2017. Admission Reason for Admission: Hematuria Discharge Discharge Diagnosis / Problem: Hematuria Discharge Goals Goal(s): Decrease discomfort, Improve function, Increase independence Activity Recommendations Activity Limitations: resume your previous activity Lifting Limitations: gradually increase as tolerated Exercise/Sports Limitations: gradually increase as tolerated May Resume Sexual Activity: when tolerated Shower/Bathe: no limitations . Instructions / Follow-Up Instructions / Follow-Up You will need to keep barboza in and then follow up with Dr. Loco in the clinic. Continue to manually irrigate barboza to help with cleaning out the blood clots. Since the bleeding is expected to continue given the dynamic and progressive course of your bladder cancer, you may consider periodic blood transfusions with more frequent hemoglobin level checks in a clinic setting, although this would only be to help symptoms like dizziness and lightheadedness temporarily. Please discuss this with your primary care provider, and also with your other providers regarding this option for care. Continue your medications as prescribed - with the exception of the propranolol , which you are taking for tremors. Since your heart rate is on the lower side, we think this medicine may exacerbate this and make you feel dizzy and possibly pass out. As discussed, please keep your appointments with Dr. Valenzuela 08/06/[address] Loco 08/16/17. Current Hospital Diet Patient's current hospital diet: Regular Diet Discharge Diet Recommended Diet: Regular Diet Pending Studies Studies pending at discharge: no Medical Emergencies . Who to Call and When: Medical Emergencies: If at any time you feel your situation is an emergency, please call 911 immediately. . Non-Emergent Contact Non-Emergency issues call your: Primary Care Provider Call Non-Emergent contact if: temperature is above 100.5, your pain is not controlled . . "Provider Documentation" section prepared by Robyn Olmos. . VTE Core Measure Inpt VTE Proph given/why not?: SCD's
--- NOTE | 2017-08-01 14:35 | Discharge Summary ---
Discharge Summary Date of Service Aug 01, 2017. Discharge Summary Admission Date: Jul 29, 2017 at 00:39 Discharge Date: Aug 01, 2017 Discharge Disposition: Home with services (hospice) Principal Diagnosis: Hematuria Immunizations: Have You Had Influenza Vaccine: Yes History of Tetanus Vaccine?: Yes History of Pneumococcal: Yes History of Hepatitis B Vaccine: No Medication Reconciliation Continued Medications: Citalopram (Citalopram Hydrobromide) 20 Mg Tab 20 MG PO DAILY Dronabinol (Marinol) 2.5 Mg Cap 2.5 MG PO QAM Omeprazole (Prilosec) 20 Mg Capcr 20 MG PO QAM, CAP Oxybutynin Chloride (Ditropan) 5 Mg Tab 5 MG PO BID PRN for Bladder pain, TAB Oxycodone Ir (Roxicodone Ir) 5 Mg Tab 5 MG PO Q4H PRN for Pain, TAB Prednisone (Prednisone) 5 Mg Tab 5 MG PO QAM Tamsulosin Hcl (Flomax) 0.4 Mg Cap 0.4 MG PO QAM, CAP Discontinued Medications: Propranolol (Inderal) 20 Mg Tab 20 MG PO BID, TAB Discharge Exam Review of Systems: Respiratory: No shortness of breath Cardiovascular: No chest pain Abdomen: No pain Genitourinary - Male: + hematuria, No dysuria Physical Exam: General Appearance: WD/WN, no apparent distress, + thin Eyes: normal inspection ENT: hearing grossly normal Respiratory/Chest: lungs clear, normal breath sounds, no respiratory distress Cardiovascular: regular rate, rhythm, no gallop, no murmur Abdomen / GI: normal bowel sounds, non tender, soft, + pertinent finding ( barboza bag containing light clear burgundy urine) Extremities: normal inspection, no calf tenderness Neurologic/Psychiatric: alert, normal mood/affect, normal reflexes Skin: warm/dry, no rash, + pallor Hospital Course Mr. Belcher is an 81 year old male with significant past medical history of metastatic prostate and bladder cancer, on hospice, who presented with worsening hematuria via indwelling catheter. For his hematuria in the setting of T4 urothelial cancer, we treated palliatively with automated barboza irrigation. Training was also given for him and family to be able to do this manually at home on discharge. For his anemia in the setting of hematuria, patient was transfused with a total of 5 units of PRBC's during his hospital course. On admission hgb was 6.0. 1 unit was transfused on day of discharge for a hgb of 8. As the source of bleeding is his invasive cancer, we expect that his anemia will continue, and that he may benefit at least symptomatically from intermittent Hgb checks and subsequent transfusions if symptoms indicate such palliative management in the future. Discussing care goals with patient includes his desire to stay out of the hospital as much as is possible. In my and my colleagues' discussion with patient and patient's family, there is some disagreement between family members as to whether or not to continue chemotherapy or whether to focus on more palliative measures. Efforts were made to mediate this discussion, and help family reassess expectations. For his urothelial cancer, both oncology and urology was consulted and discussion included that patient is not a candidate for further chemotherapy. Options discussed with the patient were the following: Per : "1) Continue large bore barboza, monitor hematuria and outpatient follow-up. 2) Cystoscopy and fulguration, which will not alter the course of his malignancy and would need to be repeated regularly. 3) Conversion to bilateral nephrostomy tubes with removal of stents and barboza. None of these would carry curative intent and they all have their shortcomings." -Continue tamsulosin 0.4, pain control (oxycodone 5), oxybutynin optimized to 10 mg BID -Continue prednisone 5, dronabinol 2.5 This summary will be forwarded to Tea Singh, and Claudy per patient request. Thank you for allowing us to participate in his care. Total Time Spent: Greater than 30 minutes This includes examination of the patient, discharge planning, medication reconciliation, and communication with other providers. Discharge Instructions Please refer to the electronic Patient Visit Report (Discharge Instructions) for additional information. Additional Copies To Kunal Valenzuela D.O.; Crow Metcalf M.D.; Peewee Loco MD, Urology
--- NOTE | 2017-08-01 16:00 | NUR ---
A: A+O X 4. Family at bedside. VSS. Lung sounds diminished on RA. Transfusion of 1 unit about to start and then pt able to discharged after complete. Denies pain. Tika intact/patenting, draining light pink urine. Will continue to monitor Addendum: 08/01/17 at 1952 by Malorie Montes RN A: Transfusion completed, pt tolerated well. IV site removed. Tika manually irrigated prior to discharge. Pt and family provided discharge instructions and verbalized understanding of information. Pt taken to entrance via wheelchair w/all belongings.
--- NOTE | 2017-08-02 08:17 | NUR ---
discharge faxed to [facility]
[2017-12-28] MEDS ORDERED: PROP20TA67 PO (07:36)
[2017-12-28] MEDS ORDERED: SENN-65 PO (07:38)
[2017-12-28] MEDS ORDERED: MORP-157 PO (07:38)
== END 2017-08-01 19:52 | disposition hospice, home (50) | DRG 812 ==
LOC: C.EDB 21:06 → C.MSICU 07-29 00:39 → ENRESERV 07-29 00:55 → CANRESERV 07-29 17:12 → ENRESERV 07-29 17:19 → C.4E 07-29 18:11
PROVIDERS: ADMIT Hospitalist; ATTEND Hospitalist
DX: D62 Acute posthemorrhagic anemia (principal); N39.0 Urinary tract infection, site not specified; E87.1 Hypo-osmolality and hyponatremia; C61 Malignant neoplasm of prostate; R31.0 Gross hematuria; F32.9 Major depressive disorder, single episode, unspecified; K21.9 Gastro-esophageal reflux disease without esophagitis; R25.1 Tremor, unspecified; C67.9 Malignant neoplasm of bladder, unspecified; E88.09 Other disorders of plasma-protein metabolism, not elsewhere classified; Z79.52 Long term (current) use of systemic steroids; Z79.899 Other long term (current) drug therapy

== ENCOUNTER 2017-09-09 11:15 | Day surgery (SDC) | payer MEDICARE ==
[2017-08-20 13:34] VITALS: BMI 23.0
[2017-08-25 12:07] LABS: BASO % 0.2 %; BASO ABS # 0.02 K/uL (0-0.2); EOS % 1.8 %; EOS ABS # 0.18 K/uL (0-0.5); HEMATOCRIT 27.7 % (42-52); HEMOGLOBIN 8.9 g/dL (14.0-18.0); IG# 0.03 K/uL (0.00-0.02); LYMPH % 5.3 %; LYMPH ABS # 0.52 K/uL (1.2-3.4); MEAN CELL VOLUME 92.3 fL (80-100); MEAN CORPUSCULAR HEMOGLOBIN 29.7 pg (25-34); MEAN CORPUSCULAR HGB CONC 32.1 g/dl (32-36); MEAN PLATELET VOLUME 10.5 fL (7.4-10.4); MONO % 6.1 %; MONO ABS # 0.59 K/uL (0.11-0.59); NEUT % 86.3 %; PLATELET COUNT 271 K/uL (130-400); RED CELL DISTRIBUTION WIDTH CV 15.5 % (11.5-14.5); RED CELL DISTRIBUTION WIDTH SD 52.6 fL (36.4-46.3); WHITE BLOOD COUNT 9.74 K/uL (4.8-10.8)
--- NOTE | 2017-08-25 12:15 | DIAGNOSTIC IMAGING REPORT ---
CHEST 2 VIEWS ROUTINE HISTORY: Preop. Prostate cancer. COMPARISON: Chest 06/02/2017. FINDINGS: Mild interstitial thickening at the lung bases. This is likely chronic. The lungs are otherwise clear. No pleural effusions. No pneumothorax. The heart is mildly enlarged. IMPRESSION: Mild cardiomegaly and mild bibasilar interstitial thickening which is likely chronic. Otherwise, no acute process within the chest. Electronically signed by: Zana Ceja M.D. 08/25/2017 12:13 PM Dictated Date/Time: 08/25/2017 12:12 PM
[2017-08-25 12:38] LABS: CALCIUM 8.7 mg/dl (8.5-10.1); CREATININE 2.9 mg/dl (0.60-1.40); POTASSIUM 4.7 mmol/L (3.5-5.1)
[~2017-09-09] VITALS: Ht 182.9 cm; Wt 79.1 kg
[~2017-09-09 11:15] MED LIST changes: +ATROPINE SULFATE 0.1 MG/ML 5ML SYR IV PRN; +CIPROFLOXACIN / D5W 400 MG IV SCH; +CLX/20 PO; -CLX20 PO; +DTR/5 PO; -DTR5 PO; +EpHEDrine SULFATE INJ 50 MG/ML AMP IV PRN; +FENTANYL CITRATE INJ 50 MCG/1 ML 2 ML VIAL IV PRN; -FLM4 PO; +ONDANSETRON INJ 2 MG/ML 2 ML VIAL IV PRN; -OXYC-90 PO; +OXYC1TAB3 PO; -PROP20TA67 PO; -SIMV20TA2 PO; +SODIUM CHLORIDE 0.9% 1000ML IV SCH; +TAMS0.4C38 PO
[2017-09-09 11:43] VITALS: BP 100/49; PULSE 64; TEMP 36.4; O2SAT 98; Ht 182.9 cm; Wt 79.1 kg
[2017-09-09] MEDS ORDERED: CIPR250T3 PO (12:05)
[2017-09-09] MEDS ORDERED: LIDOCAINE HCL 2% 2 ML VIAL (20MG/ML) ONE (14:18)
[2017-09-09] MEDS ORDERED: PROPOFOL IV EMULSION 10 MG/ML 20 ML VIAL IV ONE (14:18)
[2017-09-09] MEDS ORDERED: FENTANYL CITRATE INJ 50 MCG/1 ML 2 ML VIAL ONE ×2 (14:18→16:16)
[2017-09-09] MEDS ORDERED: CONRAY 30% 150ML BOTTLE ONE (14:19)
[2017-09-09 14:48] LABS: CALCIUM 8.5 mg/dl (8.5-10.1); CREATININE 2.5 mg/dl (0.60-1.40); POTASSIUM 4.4 mmol/L (3.5-5.1)
[2017-09-09] MEDS ORDERED: BELLADONNA/OPIUM SUPP 60 MG SUPP PR ONE ×2 (15:24→15:31)
--- NOTE | 2017-09-09 15:33 | [facility] Post Operative Brief Note ---
Immediate Operative Summary Operative Date Sep 09, 2017. Pre-Operative Diagnosis Bilateral Stents, Prostate and Bladder Cancer Post-Operative Diagnosis Bilateral Stents, Bladder and Prostate Cancer Procedure(s) Performed Cystoscopy, Bilateral Retrograde Pyelogram, Bilateral Ureteral Stent Exchange, Button Vaporization and Fulgeration of Prostatic Urethra Surgeon Dr. Loco Non Profit Financial Controller Surgeon(s) none Estimated Blood Loss 10cc Findings Consistent with Post-Op Diagnosis Specimens none per surgeon Drains 7 fr 26 cm stent bilaterally, 22 fr barboza 10 cc H Anesthesia Type General Complication(s) none Disposition Accompanied Pt To Recover: no Disposition: Recovery Room / PACU
--- NOTE | 2017-09-09 15:47 | DIAGNOSTIC IMAGING REPORT ---
INTRAOPERATIVE RADIOGRAPHS CLINICAL HISTORY: Cystoscopy. A ureteral stent exchange. Fluoroscopy time: 1 minute 57 seconds. FINDINGS: 11 spot fluoroscopic views of the abdomen from a bilateral ureteral stent exchange procedure are correlated with abdominal CT dated 07/15/2017. Both images show ureteral stents in place. The ureteral stents are exchanged during the procedure. Bilateral hydronephrosis is identified, right greater than left. IMPRESSION: Intraoperative images from a bilateral ureteral stent exchange procedure as above. See operative report for detailed findings. Electronically signed by: Tushar Green M.D. 09/09/2017 3:46 PM Dictated Date/Time: 09/09/2017 3:44 PM
[2017-09-09] MEDS ORDERED: PHENAZOPYRIDINE HCL 100 MG TAB PO PRN (16:00)
[2017-09-09] MEDS ORDERED: OXYCODONE/ACETAMINOPHEN 5-325 TAB PO PRN ×2 (16:00)
--- NOTE | 2017-09-09 16:00 | Discharge Instructions ---
Discharge Instructions Date of Service Sep 09, 2017. Admission Reason for Admission: Bilateral Stents, Prostate & Bladder Cancer Discharge Discharge Diagnosis / Problem: Bilateral stents s/p stent exchange, TU vaporization and fulguration prosta Discharge Goals Goal(s): Improve function, Improve disease control Activity Recommendations Activity Limitations: as noted below Lifting Limitations: no more than 25 pounds, gradually increase as tolerated Exercise/Sports Limitations: rest today, gradually increase as tolerated May Resume Sexual Activity: after follow-up appointment Shower/Bathe: tomorrow . Instructions / Follow-Up Instructions / Follow-Up [place] catheter removal 11:20 AM tomorrow in [place] office. Postoperative appointment as scheduled. Current Hospital Diet Patient's current hospital diet: Discharge Diet Recommended Diet: Regular Diet (good fluid intake) Procedures Procedures Performed: Cystoscopy, Bilateral Retrograde Pyelogram, Bilateral Ureteral Stent Exchange, Bipolar Button Vaporization and Fulguration of Prostate Pending Studies Studies pending at discharge: no Medical Emergencies . Who to Call and When: Medical Emergencies: If at any time you feel your situation is an emergency, please call 911 immediately. . Non-Emergent Contact Non-Emergency issues call your: Urologist Call Non-Emergent contact if: you have a fever, temperature is above 101, your pain is not controlled, your pain is worsening, your pain is unusual for you, your pain is concerning you, wound has increased drainage, you have any medication questions . . "Provider Documentation" section prepared by Peewee Loco. . VTE Core Measure Inpt VTE Proph given/why not?: SCD's
--- NOTE | 2017-09-09 16:09 | [facility] Operative Report ---
Operative Report Operative Date Sep 09, 2017. 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 Post-Operative Diagnosis Same Procedure(s) Performed Cystoscopy, Bilateral Retrograde Pyelogram, Bilateral Ureteral Stent Exchange, Bipolar Button Vaporization and Fulguration of Prostate Surgeon Dr. Suri Loco Guest Associate Surgeon(s) none Estimated Blood Loss 10 cc Findings Regrowth of bladder cancer invading into prostate - fulgurated and vaporized, bilateral recurrent hydro - good stent position on fluoroscopy. 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 He's been pretreated with ciprofloxacin for preoperative UTI. Please see H&P for further details. Of note, patient's creatinine is noted to be elevated above baseline on his preoperative testing. This is rechecked today and noted to be stable but outside of the range of his previous values. He is here today for exchange of his ureteral stents and possible fulguration of his prostatic urethra depending on findings. Intravenous ciprofloxacin 200 mg as provided for antibiotic coverage and SCDs used for DVT prophylaxis. Description of Procedure Patient was properly identified and brought into the operative suite after identification of appropriate consent of the chart. General anesthesia with laryngeal mask was initiated and patient was prepped and draped in standard fashion for this procedure. Full timeout procedure was followed. 22 Bangladeshi rigid cystoscope was passed into the bladder under direct visualization and the patient was noted to have regrowth of his previously resected tissue at the level of the prostatic urethra. 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 Within the bladder involvement of this tissue at the level of the trigone and bladder neck was appreciated. Bilateral ureteral stents were noted to be in good position. Right-sided stent was grasped and brought down to the level of the meatus. This was cannulated using a sensor tip wire which was advanced level of the right renal pelvis. An open-ended catheter was advanced to the right renal pelvis and retrograde pyelography was performed. This demonstrated moderate to severe hydronephrosis of the right kidney and proximal ureter with an area of narrowing in the mid ureter consistent with external compression from the patient's known malignancy. Sensor tip wire was readvanced and a 7 Bangladeshi 26 cm double-J ureteral stent was advanced with a full coil present within the renal pelvis and a full coil present within the bladder. Procedure was repeated on the left-hand side and again moderate to severe hydronephrosis was appreciated this time without a clear junction and the ureter. Cloudy urine was appreciated on the left-hand side on placement of the open-ended catheter. Sensor tip wire was advanced and used to place a 7 Bangladeshi 26 cm double-J ureteral stent which was also noted to be in good position after completion of the case. At this point, due to passage of this rigid cystoscope for stent exchange patient's presumably recurrent malignancy within the prostatic urethra was noted to be bleeding and obstructive. Bipolar resectoscope was therefore advanced into the bladder using a visual obturator and a bipolar button was used to perform a transurethral vaporization of the prostate gland circumferentially to allow for the prostatic urethra to be unobstructed followed by generous fulguration of both the prostatic urethra and the bladder neck and trigonal tissue which was also source of bleeding. Improved hemostasis was appreciated after this was complete. Bladder was partially distended resectoscope was removed. 22 Bangladeshi Barboza catheter was placed with 10 mL of sterile water in the balloon with drainage of clear pink urine. Belladonna and opium suppository was provided for additional postoperative analgesia. Anesthesia was reversed and patient was transferred to the recovery room in stable condition. Follow-up care: Patient complete his order of ciprofloxacin at home as previously prescribed. Trial void will be planned for tomorrow. We'll repeat a creatinine prior to his postoperative visit. Patient has pain medication at home. Care was discussed with the patient and his family today. Patient is instructed to contact our service should he note any fevers, chills, nausea, vomiting or other difficulties after his surgery today. I attest to the content of the Intraoperative Record and any orders documented therein. Any exceptions are noted below.
--- NOTE | 2017-09-09 16:22 | Anesthesiology Progress Note ---
Anesthesia Post Op Note Date & Time Sep 09, 2017 at 16:22 Vital Signs Pain Intensity: 4.0 Vital Signs Past 12 Hours Date Time Temp Pulse Resp B/P (MAP) Pulse Ox O2 Delivery O2 Flow Rate FiO2 09/09/17 16:15 58 16 139/75 100 Room Air 09/09/17 16:05 57 16 125/67 100 Room Air 09/09/17 15:55 58 16 118/66 98 Oxymask 10 09/09/17 15:45 36.2 58 16 114/80 98 Oxymask 10 09/09/17 11:43 36.4 64 20 100/49 (66) 98 Room Air Notes Mental Status: alert / awake / arousable, participated in evaluation Pt Amnestic to Procedure: Yes Nausea / Vomiting: adequately controlled Pain: adequately controlled Airway Patency, RR, SpO2: stable & adequate BP & HR: stable & adequate Hydration State: stable & adequate Anesthetic Complications: no major complications apparent
[2017-09-09 16:40] VITALS: BP 123/58; PULSE 56; TEMP 36.5; O2SAT 100
[2017-09-09 17:05] VITALS: BP 129/75; PULSE 58; TEMP 36.4; O2SAT 100
== END 2017-09-09 17:20 | disposition home or self-care (01) ==
LOC: C.ACU 11:15
PROVIDERS: ATTEND Urology
DX: C79.82 Secondary malignant neoplasm of genital organs (principal); C67.9 Malignant neoplasm of bladder, unspecified; N13.30 Unspecified hydronephrosis; N02.9 Recurrent and persistent hematuria with unspecified morphologic changes; Z96.0 Presence of urogenital implants; N18.9 Chronic kidney disease, unspecified; R33.8 Other retention of urine; N30.40 Irradiation cystitis without hematuria; J44.9 Chronic obstructive pulmonary disease, unspecified; I25.10 Atherosclerotic heart disease of native coronary artery without angina pectoris; I48.91 Unspecified atrial fibrillation; E78.00 Pure hypercholesterolemia, unspecified; Z98.890 Other specified postprocedural states; Z87.891 Personal history of nicotine dependence; Z79.899 Other long term (current) drug therapy; Z84.1 Family history of disorders of kidney and ureter

== ENCOUNTER → 2017-09-27 | Outpatient (CLI) | payer MEDICARE ==
[~2017-09-27] MED LIST changes: -ATROPINE SULFATE 0.1 MG/ML 5ML SYR IV PRN; +CIPR250T3 PO; -CIPROFLOXACIN / D5W 400 MG IV SCH; -EpHEDrine SULFATE INJ 50 MG/ML AMP IV PRN; -FENTANYL CITRATE INJ 50 MCG/1 ML 2 ML VIAL IV PRN; -ONDANSETRON INJ 2 MG/ML 2 ML VIAL IV PRN; -SODIUM CHLORIDE 0.9% 1000ML IV SCH
== END | disposition home or self-care (01) ==
LOC: C.LABSPEC 10:40
PROVIDERS: ATTEND Urology
DX: N39.0 Urinary tract infection, site not specified (principal)

== ENCOUNTER → 2017-11-08 | Outpatient (CLI) | payer MEDICARE | END | disposition home or self-care (01) | LOC: C.LABSPEC 11:13 | PROVIDERS: ATTEND Urology | DX: N39.0 Urinary tract infection, site not specified (principal) ==

== ENCOUNTER 2017-11-16 18:49 | Emergency (ER) | payer MEDICARE ==
[~2017-11-16] VITALS: Ht 182.9 cm; Wt 78.0 kg
[2017-11-16 18:55] VITALS: TEMP 36.5; Ht 182.9 cm; Wt 78.0 kg
[2017-11-16] MEDS ORDERED: SODIUM CHLORIDE 0.9% 1000ML 1,000 ML IV STA (19:56)
--- NOTE | 2017-11-16 19:59 | EMERGENCY ROOM VISIT NOTE ---
History Report prepared by La: Warren Monroy Under the Supervision of: Dr. Giovani Casanova M.D. First contact with patient: 19:49 Chief Complaint: OTHER COMPLAINT Stated Complaint: POOR RENAL FUNCTION History of Present Illness The patient is an 82 year old male with a history of acute renal insufficiency who presents to the Emergency Room with a worsening renal function that was detected earlier today. 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 The patient has a history of stent placements. The patient has had worsening kidney function tests recently, so the patient had a first appointment with Dr. Calhoun of nephrology today, and had blood work done there. The patient was then called prior to arrival, and was told that the renal function tests were low and " worse than they thought", so he was recommended to come here. The patient's creatinine was noted to be 5.7 today. Per the patient's family, the patient has not been doing well recently at all, and has been sleeping a lot and not eating much. The patient has been noted to be confused at times. He has been noted to be a bit better ever since he received 2 units of blood yesterday. The patient says that he feels fine, and denies any abdominal pain. Per the patient's family , the patient has been constipated recently. The patient is not on any blood thinners. He is also not currently going through chemotherapy. Source of History: patient, family, nursing staff Onset: Detected earlier today Position: other (global ) Symptom Intensity: creatinine of 5.7 today Quality: other (renal function poor) Timing: worsening Associated Symptoms: + fatigue (sleeping a lot), No abdominal pain Note: Associated symptoms: Intermittent confusion. Constipated recently. Review of Systems See HPI for pertinent positives & negatives. A total of 10 systems reviewed and were otherwise negative. Past Medical & Surgical Medical Problems: (1) Acute renal insufficiency (2) Bladder cancer (3) Hematuria (4) Hyponatremia (5) Prostate cancer Family History Cancer Heart disease Social History Smoking Status: Former Smoker Drug Use: none Marital Status: Housing Status: lives with family Occupation Status: employed Current/Historical Medications Scheduled Citalopram (Citalopram Hydrobromide), 20 MG PO DAILY Dronabinol (Marinol), 2.5 MG PO QAM Omeprazole (Prilosec), 20 MG PO Q2D Prednisone (Prednisone), 5 MG PO QAM Tamsulosin Hcl (Flomax), 0.4 MG PO QAM Scheduled PRN Oxybutynin Chloride (Ditropan), 5 MG PO BID PRN for Bladder pain Oxycodone Ir (Roxicodone Ir), 5 MG PO Q4H PRN for Pain Allergies Coded Allergies: No Known Allergies (Unverified , 11/15/17) Physical Exam Vital Signs Date Time Temp Pulse Resp B/P (MAP) Pulse Ox O2 Delivery O2 Flow Rate FiO2 11/16/17 21:20 60 16 139/65 97 Room Air 11/16/17 20:50 60 11/16/17 20:15 50 17 141/78 99 Room Air 11/16/17 18:55 36.5 50 20 114/62 97 Room Air Physical Exam GENERAL: Awake, alert, pleasantly confused, in no acute distress HENT: Normocephalic, atraumatic. Oropharynx unremarkable. EYES: Normal conjunctiva. Sclera non-icteric. NECK: Supple. No nuchal rigidity. FROM. No JVD. RESPIRATORY: Clear to auscultation. CARDIAC: Regular rate, normal rhythm. Extremities warm and well perfused. Pulses equal. ABDOMEN: Soft, non-distended. No tenderness to palpation. No rebound or guarding. No masses. RECTAL: Deferred. MUSCULOSKELETAL: Chest examination reveals no tenderness. The back is symmetrical on inspection without obvious abnormality. There is no CVA tenderness to palpation. No joint edema. LOWER EXTREMITIES: Calves are equal size bilaterally and non-tender. No edema. No discoloration. NEURO: Pleasantly confused. No sensory or motor deficits noted. SKIN: No rash or jaundice noted. Medical Decision & Procedures ER Provider Diagnostic Interpretation: Radiology results as stated below per my review and radiologist interpretation: CT SCAN OF THE ABDOMEN AND PELVIS WITHOUT CONTRAST CLINICAL HISTORY: Abdominal pain. Possible calculus PROSTATE CARCINOMA COMPARISON STUDY: 07/15/2017 TECHNIQUE: CT scan of the abdomen and pelvis was performed from the lung bases to the proximal femurs. Images are reviewed in the axial, sagittal, and coronal planes. IV contrast was not administered for this examination. A dose lowering technique was utilized adhering to the principles of ALARA. CT DOSE: FINDINGS: Lower chest: There is subpleural reticulation with honeycombing. Liver: The unenhanced liver is normal in size, contour, and attenuation. There is no intrahepatic biliary ductal dilatation. Gallbladder: Unremarkable. Spleen: Normal in size and attenuation. Pancreas: Unremarkable. Adrenal glands: Unremarkable. Kidneys: There is bilateral hydronephrosis. There are bilateral nephroureteral stents. No ureteral or bladder calculi are visualized. There are enlarging right-sided perinephric nodules measuring up to 16 mm in diameter. Bowel: There are no transition zones to indicate bowel obstruction. There is no evidence of acute diverticulitis. There is scattered colonic diverticula present. There are no findings to indicate acute appendicitis. There is mild rectal wall thickening. Peritoneum: There is no intraperitoneal free air or abdominal ascites. Vasculature: The abdominal aorta is normal in course and caliber. Adenopathy: There is increasing aortocaval lymphadenopathy. There is increasing iliac lymphadenopathy. Right pelvic sidewall conglomerate filipe mass measures 91 x 33 mm. There are enlarged right inguinal lymph nodes. Pelvic viscera: There is mild bladder wall thickening. There is mild infiltration of the perivesical fat. Skeletal structures: No destructive osseous lesions are seen. IMPRESSION: 1. Progressive metastatic disease with increasing retroperitoneal and sidewall pelvic lymphadenopathy. In addition there are increasing right perinephric nodules consistent with metastatic disease. 2. Persistent bilateral hydronephrosis. Bilateral nephroureteral stents are visualized. 3. Interstitial lung disease with subpleural reticulation honeycombing 4. No evidence of bowel obstruction. No evidence of free air 5. Diverticulosis no evidence of acute diverticulitis 6. Mild rectal wall thickening 7. Bladder wall thickening Electronically signed by: David Quan M.D. 11/16/2017 8:51 PM Dictated Date/Time: 11/16/2017 8:42 PM CHEST ONE VIEW PORTABLE CLINICAL HISTORY: Acute change in mental status COMPARISON STUDY: General 2017 FINDINGS: The heart remains enlarged. There is mild chronic interstitial thickening. There is no acute rectal consolidation. There is no failure. There are no pleural effusions. [ IMPRESSION: Stable cardiomegaly and interstitial thickening. No acute findings Electronically signed by: David Quan M.D. 11/16/2017 8:34 PM Dictated Date/Time: 11/16/2017 8:[address] HEAD WITHOUT CONTRAST (CT) CLINICAL HISTORY: Acute change in mental status COMPARISON STUDY: 06/01/2017 TECHNIQUE: Axial CT of the brain is performed from the vertex to the skull base. IV contrast was not administered for this examination. A dose lowering technique was utilized adhering to the principles of ALARA. CT DOSE: 1041.75 mGy.cm FINDINGS: No intra or extra-axial mass lesions are visualized. There is no CT evidence of acute cortical infarction. There is no evidence of midline shift. There is no acute hemorrhage. No calvarial fractures are visualized. There are patchy white matter hypodensities likely on a small vessel basis. There is no evidence of pathologic ventricular dilatation. There is no evidence of acute sinusitis IMPRESSION: No acute intracranial findings Electronically signed by: David Quan M.D. 11/16/2017 8:40 PM Dictated Date/Time: 11/16/2017 8:39 PM Laboratory Results 11/16/17 20:15 Red Blood Count 2.90, Mean Corpuscular Volume 93.1, Mean Corpuscular Hemoglobin 30.7, Mean Corpuscular Hemoglobin Concent 33.0, Mean Platelet Volume 9.3, Neutrophils (%) (Auto) 89.1, Lymphocytes (%) (Auto) 4.8, Monocytes (%) (Auto) 5.5, Eosinophils (%) (Auto) 0.3, Basophils (%) (Auto) 0.0, Neutrophils # (Auto) 6.63, Lymphocytes # (Auto) 0.36, Monocytes # (Auto) 0.41, Eosinophils # (Auto) 0.02, Basophils # (Auto) 0.00 11/16/17 20:15 Test 11/16/17 20:15 11/16/17 21:45 White Blood Count 7.44 K/uL (4.8-10.8) Red Blood Count 2.90 M/uL (4.7-6.1) Hemoglobin 8.9 g/dL (14.0-18.0) Hematocrit 27.0 % (42-52) Mean Corpuscular Volume 93.1 fL (80-100) Mean Corpuscular Hemoglobin 30.7 pg (25-34) Mean Corpuscular Hemoglobin Concent 33.0 g/dl (32-36) Platelet Count 236 K/uL (130-400) Mean Platelet Volume 9.3 fL (7.4-10.4) Neutrophils (%) (Auto) 89.1 % Lymphocytes (%) (Auto) 4.8 % Monocytes (%) (Auto) 5.5 % Eosinophils (%) (Auto) 0.3 % Basophils (%) (Auto) 0.0 % Neutrophils # (Auto) 6.63 K/uL (1.4-6.5) Lymphocytes # (Auto) 0.36 K/uL (1.2-3.4) Monocytes # (Auto) 0.41 K/uL (0.11-0.59) Eosinophils # (Auto) 0.02 K/uL (0-0.5) Basophils # (Auto) 0.00 K/uL (0-0.2) RDW Standard Deviation 60.0 fL (36.4-46.3) RDW Coefficient of Variation 17.4 % (11.5-14.5) Immature Granulocyte % (Auto) 0.3 % Immature Granulocyte # (Auto) 0.02 K/uL (0.00-0.02) Red Blood Cell Morphology Unremarkable Anion Gap 9.0 mmol/L (3-11) Est Creatinine Clear Calc Drug Dose 11.1 ml/min Estimated GFR () 9.8 Estimated GFR (Non- 8.5 BUN/Creatinine Ratio 10.3 (10-20) Calcium Level 9.3 mg/dl (8.5-10.1) Total Bilirubin 0.4 mg/dl (0.2-1) Direct Bilirubin 0.1 mg/dl (0-0.2) Aspartate Amino Transf (AST/SGOT) 15 U/L (15-37) Alanine Aminotransferase (ALT/SGPT) 9 U/L (12-78) Alkaline Phosphatase 75 U/L (45-117) Total Protein 7.4 gm/dl (6.4-8.2) Albumin 3.0 gm/dl (3.4-5.0) Lipase 63 U/L (73-393) Urine Color RED Urine Appearance CLOUDY (CLEAR) Urine pH 6.0 (4.5-7.5) Urine Specific [place] <= 1.005 (1.000-1.030) Urine Protein 2+ (NEG) Urine Glucose (UA) NEG (NEG) Urine Ketones NEG (NEG) Urine Occult Blood 3+ (NEG) Urine Nitrite NEG (NEG) Urine Bilirubin NEG (NEG) Urine Urobilinogen NEG (NEG) Urine Leukocyte Esterase LARGE (NEG) Urine RBC >30 /hpf (0-4) Urine WBC >30 /hpf (0-5) Urine Epithelial Cells >30 /lpf (0-5) Urine Bacteria 1+ (NEG) Labs reviewed by ED physician. Medications Administered Medications (Trade) Dose Ordered Sig/Ismael Route Start Time Stop Time Status Last Admin Dose Admin Sodium Chloride 1,000 ml @ 999 mls/hr Q1H1M STAT IV 11/16/17 19:56 11/16/17 20:56 DC 11/16/17 20:25 999 MLS/HR Oxycodone HCl (Roxicodone Immediate Rel Tab) 10 mg NOW STAT PO 11/16/17 21:31 11/16/17 21:32 DC 11/16/17 21:56 5 MG Albuterol Sulfate (Ventolin 0.083% 2.5MG/3ML Neb) 2.5 mg NOW STAT INH 11/16/17 22:04 11/16/17 22:06 DC 11/16/17 22:27 2.5 MG Sodium Polystyrene Sulfonate (Kayexalate Susp) 30 gm NOW STAT PO 11/16/17 22:06 11/16/17 22:07 DC 11/16/17 22:27 30 GM ED Course 1950: Past medical records reviewed. The patient was evaluated in room A2. A complete history and physical examination was performed. 1955: NSS 1000 ml @ 999 mls/hr IV. 2106: I discussed the patient with Dr. Mc Ortega [facility] urology - he says that patient has to go out for a Perc drain. 2130: Roxicodone Immediate Rel Tab 10 mg PO. 2136: I discussed the patient with [facility] - they accepted the patient but they do not have any beds. 2141: I discussed the patient with Dr. Hernandez [facility] hospitalist - he says that the patient needs percutaneous drain, and needs to be transferred. 2144: Roxicodone Immediate Rel Tab 10 mg PO PRN. 2145: I spoke with the family of the patient as well as the patient, and told them that the wait at [facility] is over 24 hours. Their request now is [facility]. 2199: I discussed the patient with Dr. Balderas - [facility] - he has accepted the patient to the [facility]. The patient will be transferred there. Medical Decision Differential diagnosis: Etiologies such as metabolic, infection, hypo/hyperglycemia, electrolyte abnormalities, cardiac sources, intracerebral event, toxicologic, neurologic, as well as others were entertained. This is an 82-year-old male who is presents the emergency department after being sent here by his silo man over concerns that the patient is in acute renal failure. Patient's creatinine is 5.6. His potassium is also elevated therefore he was given albuterol as well as Kayexalate. I did discuss the case with the patient's silo man due to the fact that the patient has bilateral worsening hydronephrosis along with the acute renal failure it was felt that the patient needs a percutaneous nephrostomy tube. As we do not have interventional radiology here at [facility] the family was offered other options including [facility]. I did discuss the case with the doctors at [facility] however they do not have a available bed. Based on this the family then wished to be transferred to [facility]. I discussed the case with her she is emergency department as well as urology. They readily accepted the patient. Patient will be transferred by [facility]. Medication Reconcilliation Current Medication List: was personally reviewed by me Blood Pressure Screening Patient's blood pressure: Normal blood pressure Consults Time Called: 2102 Consulting Physician: Dr. Mc LEGER urology Returned Call: 2106 I discussed the patient with Dr. Mc LEGER urology - he says that patient has to go out for a Perc drain. Additional Consults: Time Called: 2129 Consulted Physician: Cyn [facility] Returned Call: 2136 Additional Comments: I discussed the patient with [facility] - they accepted the patient but they do not have any beds. Time Called: 2137 Consulted Physician: Dr. David LEGER hospitalist Returned Call: 2141 Additional Comments: I discussed the patient with Dr. David LEGER hospitalist - he says that the patient needs percutaneous drain, and needs to be transferred. Impression Primary Impression: Acute renal failure Scribe Attestation The scribe's documentation has been prepared under my direction and personally reviewed by me in its entirety. I confirm that the note above accurately reflects all work, treatment, procedures, and medical decision making performed by me. Departure Information Dispostion Transfer Acute Care Facility (to [facility]) Referrals Crow Metcalf M.D. (PCP) Patient Instructions My [facility] Problem Qualifiers Primary Impression: Acute renal failure Acute renal failure type: unspecified Qualified Codes: N17.9 - Acute kidney failure, unspecified
[2017-11-16 20:31] LABS: EOS % 0.3 %; EOS ABS # 0.02 K/uL (0-0.5); HEMOGLOBIN 8.9 g/dL (14.0-18.0); IG# 0.02 K/uL (0.00-0.02); LYMPH % 4.8 %; LYMPH ABS # 0.36 K/uL (1.2-3.4); MEAN CELL VOLUME 93.1 fL (80-100); MEAN CORPUSCULAR HEMOGLOBIN 30.7 pg (25-34); MEAN PLATELET VOLUME 9.3 fL (7.4-10.4); MONO % 5.5 %; MONO ABS # 0.41 K/uL (0.11-0.59); NEUT % 89.1 %; NEUT ABS # 6.63 K/uL (1.4-6.5); PLATELET COUNT 236 K/uL (130-400); RED CELL DISTRIBUTION WIDTH CV 17.4 % (11.5-14.5); WHITE BLOOD COUNT 7.44 K/uL (4.8-10.8)
--- NOTE | 2017-11-16 20:35 | DIAGNOSTIC IMAGING REPORT ---
CHEST ONE VIEW PORTABLE CLINICAL HISTORY: Acute change in mental status COMPARISON STUDY: General 2017 FINDINGS: The heart remains enlarged. There is mild chronic interstitial thickening. There is no acute rectal consolidation. There is no failure. There are no pleural effusions. [ IMPRESSION: Stable cardiomegaly and interstitial thickening. No acute findings Electronically signed by: David Quan M.D. 11/16/2017 8:34 PM Dictated Date/Time: 11/16/2017 8:33 PM
--- NOTE | 2017-11-16 20:41 | DIAGNOSTIC IMAGING REPORT ---
CT HEAD WITHOUT CONTRAST (CT) CLINICAL HISTORY: Acute change in mental status COMPARISON STUDY: 06/01/2017 TECHNIQUE: Axial CT of the brain is performed from the vertex to the skull base. IV contrast was not administered for this examination. A dose lowering technique was utilized adhering to the principles of ALARA. CT DOSE: 1041.75 mGy.cm FINDINGS: No intra or extra-axial mass lesions are visualized. There is no CT evidence of acute cortical infarction. There is no evidence of midline shift. There is no acute hemorrhage. No calvarial fractures are visualized. There are patchy white matter hypodensities likely on a small vessel basis. There is no evidence of pathologic ventricular dilatation. There is no evidence of acute sinusitis IMPRESSION: No acute intracranial findings Electronically signed by: David Quan M.D. 11/16/2017 8:40 PM Dictated Date/Time: 11/16/2017 8:39 PM
--- NOTE | 2017-11-16 20:52 | DIAGNOSTIC IMAGING REPORT ---
CT SCAN OF THE ABDOMEN AND PELVIS WITHOUT CONTRAST CLINICAL HISTORY: Abdominal pain. Possible calculus PROSTATE CARCINOMA COMPARISON STUDY: 07/15/2017 TECHNIQUE: CT scan of the abdomen and pelvis was performed from the lung bases to the proximal femurs. Images are reviewed in the axial, sagittal, and coronal planes. IV contrast was not administered for this examination. A dose lowering technique was utilized adhering to the principles of ALARA. CT DOSE: FINDINGS: Lower chest: There is subpleural reticulation with honeycombing. Liver: The unenhanced liver is normal in size, contour, and attenuation. There is no intrahepatic biliary ductal dilatation. Gallbladder: Unremarkable. Spleen: Normal in size and attenuation. Pancreas: Unremarkable. Adrenal glands: Unremarkable. Kidneys: There is bilateral hydronephrosis. There are bilateral nephroureteral stents. No ureteral or bladder calculi are visualized. There are enlarging right-sided perinephric nodules measuring up to 16 mm in diameter. Bowel: There are no transition zones to indicate bowel obstruction. There is no evidence of acute diverticulitis. There is scattered colonic diverticula present. There are no findings to indicate acute appendicitis. There is mild rectal wall thickening. Peritoneum: There is no intraperitoneal free air or abdominal ascites. Vasculature: The abdominal aorta is normal in course and caliber. Adenopathy: There is increasing aortocaval lymphadenopathy. There is increasing iliac lymphadenopathy. Right pelvic sidewall conglomerate filipe mass measures 91 x 33 mm. There are enlarged right inguinal lymph nodes. Pelvic viscera: There is mild bladder wall thickening. There is mild infiltration of the perivesical fat. Skeletal structures: No destructive osseous lesions are seen. IMPRESSION: 1. Progressive metastatic disease with increasing retroperitoneal and sidewall pelvic lymphadenopathy. In addition there are increasing right perinephric nodules consistent with metastatic disease. 2. Persistent bilateral hydronephrosis. Bilateral nephroureteral stents are visualized. 3. Interstitial lung disease with subpleural reticulation honeycombing 4. No evidence of bowel obstruction. No evidence of free air 5. Diverticulosis no evidence of acute diverticulitis 6. Mild rectal wall thickening 7. Bladder wall thickening Electronically signed by: David Quan M.D. 11/16/2017 8:51 PM Dictated Date/Time: 11/16/2017 8:42 PM
[2017-11-16 21:02] LABS: CALCIUM 9.3 mg/dl (8.5-10.1); CREATININE 5.75 mg/dl (0.60-1.40); POTASSIUM 5.4 mmol/L (3.5-5.1); TOTAL PROTEIN 7.4 gm/dl (6.4-8.2)
[2017-11-16] MEDS ORDERED: OXYCODONE HCL IR 5 MG TAB (IMMEDIATE RELEASE) PO STA (21:31)
[2017-11-16] MEDS ORDERED: OXYCODONE HCL IR 5 MG TAB (IMMEDIATE RELEASE) PO PRN (21:45)
[2017-11-16] MEDS ORDERED: ALBUTEROL 0.083% NEBU SOLN 3 ML VIAL INH STA (22:04)
[2017-11-16] MEDS ORDERED: SODIUM POLYST. SULF SUSP 15G/60ML PO STA (22:06)
[2017-11-16 23:03] VITALS: BP 145/78; PULSE 62; O2SAT 96
--- NOTE | 2017-11-19 12:34 | Pharmacy Progress Note ---
ED Pharmacist Culture FollowUp Date of Service: Nov 19, 2017. Pseudomonas isolated in urine culture. Patient was transferred to [facility]. Called [facility] , was transferred to nursing unit, spoke satya Pretty (RN taking care of patient). Provided verbal report of culture result (santana-sensitive Pseudomonas isolated in urine). Per Maria De Jesus's request, also faxed to , read back #. Confirmation received, JobID [id number]. Management per [facility] discretion.
== END 2017-11-16 23:05 | disposition short-term general hospital (02) ==
LOC: C.EDB 18:51 → C.EDA 23:05
DX: N17.9 Acute kidney failure, unspecified (principal); E87.1 Hypo-osmolality and hyponatremia; C61 Malignant neoplasm of prostate; Z87.891 Personal history of nicotine dependence

== ENCOUNTER → 2017-11-16 | Outpatient (CLI) | payer MEDICARE ==
[~2017-11-16] MED LIST changes: -CIPR250T3 PO
[2017-11-16 15:36] LABS: HEMATOCRIT 27.2 % (42-52); MEAN CELL VOLUME 93.8 fL (80-100); MEAN CORPUSCULAR HGB CONC 33.1 g/dl (32-36); MEAN PLATELET VOLUME 9.7 fL (7.4-10.4); PLATELET COUNT 252 K/uL (130-400); RED CELL DISTRIBUTION WIDTH CV 17.6 % (11.5-14.5); RED CELL DISTRIBUTION WIDTH SD 60.7 fL (36.4-46.3); WHITE BLOOD COUNT 8.94 K/uL (4.8-10.8)
[2017-11-16 16:05] LABS: ALBUMIN 2.8 gm/dl (3.4-5.0); BLOOD UREA NITROGEN 59 mg/dl (7-18); CALCIUM 9.3 mg/dl (8.5-10.1); CARBON DIOXIDE 23 mmol/L (21-32); CREATININE 5.75 mg/dl (0.60-1.40); GLUCOSE 111 mg/dl (70-99); PHOSPHORUS 5.3 mg/dl (2.5-4.9); POTASSIUM 5.7 mmol/L (3.5-5.1); SODIUM 129 mmol/L (136-145)
== END | disposition home or self-care (01) ==
LOC: C.LAB1850 14:10
PROVIDERS: ATTEND Internal Medicine Nephrology
DX: N17.9 Acute kidney failure, unspecified (principal)

== ENCOUNTER → 2017-12-08 | Outpatient (CLI) | payer MEDICARE ==
--- NOTE | 2017-12-08 15:51 | DIAGNOSTIC IMAGING REPORT ---
KUB CLINICAL HISTORY: BLADDER CANCER, HYDRONEPHROSIS COMPARISON STUDY: 06/02/2017 FINDINGS: There are bilateral nephrostomy tubes, and bilateral nephroureteral stents. No urinary tract calculi are visualized. There are no findings to indicate bowel obstruction. IMPRESSION: Bilateral nephrostomies and bilateral nephroureteral stents are visualized Electronically signed by: David Quan M.D. 12/08/2017 3:49 PM Dictated Date/Time: 12/08/2017 3:48 PM
== END | disposition home or self-care (01) ==
LOC: C.RAD 15:19
PROVIDERS: ATTEND Urology
DX: C67.9 Malignant neoplasm of bladder, unspecified (principal); N13.30 Unspecified hydronephrosis; Z93.6 Other artificial openings of urinary tract status; Z96.0 Presence of urogenital implants

== ENCOUNTER → 2017-12-23 | Outpatient (CLI) | payer MEDICARE ==
--- NOTE | 2017-12-23 17:34 | DIAGNOSTIC IMAGING REPORT ---
RIGHT LOWER EXTREMITY VENOUS DOPPLER HISTORY: R LEG PAIN R/O DVT COMPARISON STUDY: None. FINDINGS: There is normal compressibility, flow, and augmentation within the right lower extremity deep venous system. There is a hypoechoic and enlarged right inguinal lymph node measuring 2.8 x 1.8 x 2.1 cm. Diffuse subcutaneous edema within the right lower leg. IMPRESSION: No DVT within the right lower extremity. Pathologically enlarged right inguinal lymph node. Electronically signed by: Zana Ceja M.D. 12/23/2017 5:33 PM Dictated Date/Time: 12/23/2017 5:32 PM
== END | disposition home or self-care (01) ==
LOC: C.ULTR 17:02
PROVIDERS: ATTEND Internal Medicine Hematology & Oncology
DX: M79.604 Pain in right leg (principal); R59.0 Localized enlarged lymph nodes